=== PATIENT | female | born 1995 | race Caucasian/White ===

== ENCOUNTER 2016-07-16 11:36 | Emergency (ER) | payer OTHER ==
[~2016-07-16 11:36] MED LIST: /ESCI10TA PO; ANUS2.5C2 TOP; DOCU10ELUD PO; ERGO5000 PO; IBUP100SUS PO; MOM30SS PO; SPRI28TA PO; SYNT25TA PO; TYLE325T5 PO; VENTAER IN
[2016-07-16] MEDS ORDERED: ONDANSETRON 4 MG ORAL DISINTEGRATING TAB (S0181) As Ordered ONE (12:36)
--- NOTE | 2016-07-16 14:47 | EDDOCDS ---
Nurse's Notes [facility] Name: Shayy Nicholas Age: 21 yrs Sex: Female : 1995 Arrival Date: 07/16/2016 Time: 11:36 Bed TR8 Private MD: Padma Wheeler FNP Diagnosis: Influenza due to unidentified influenza virus Presentation: 07/16 11:45 Presenting complaint: Patient states: Pt presents with sore throat coughing general dls aches coughing all nite fever vomiting ill x 2 days. Adult Sepsis Screening: The patient does not have new or worsening altered mentation. Patient's respiratory rate is less than 22. Systolic blood pressure is greater than 100. Patient has a qSOFA score of 0- Negative Sepsis Screen. Suicide/Homicide risk assessment- the patient denies having any suicidal and/or homicidal ideations and does not present with any other emotional, behavioral or mental health complaints. 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 Transition of care: patient was not received from another setting of care. 11:45 Acuity: ALIRIO Level 3 dls 11:45 Method Of Arrival: Walkin/Carried/Asstd dls Triage Assessment: 11:49 General: Appears distressed, uncomfortable, well developed, Behavior is cooperative. dls Pain: Pain currently is 10 out of 10 on a pain scale. HIV screening NA for this visit Offered previously. 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 otc cold med (Last dose: 07/16/2016 09:30) 2. claritan (Last dose: 07/16/2016 09:30) - PMHx: brain surgery for tumpr; - PSHx: brain surgery; Appendectomy; skin grafts; - Social history: Smoking status: Patient/guardian denies using No barriers to communication noted, The patient speaks fluent Turkish. - Family history: Not pertinent. - : The pt / caregiver states he / she is not on anticoagulants. Home medication list is obtained from the patient. - Exposure Risk Screening:: None identified. Screenin:43 Screening information is obtained from the patient. Fall risk: No risks identified. ms18 Assistance ADL's: requires no assistance with activities of daily living. Abuse/DV Screen: The patient / caregiver reports he/she is: not in a situation that causes fear, pain or injury. Nutritional screening: No deficits noted. Advance Directives: There is no living will. home support is adequate. Assessment: 14:43 General: Appears in no apparent distress, comfortable, obese, Behavior is appropriate ms18 for age, cooperative. Pain: Location: all over Pain currently is 8 out of 10 on a pain scale. Neurological: Level of Consciousness is awake, alert, obeys commands, Oriented to person, place, time. Cardiovascular: Capillary refill < 3 seconds. Respiratory: Airway is patent Respiratory effort is even, unlabored, Respiratory pattern is regular, symmetrical. GI: Abdomen is obese, Bowel sounds present X 4 quads. Abd is soft X 4 quads. Derm: Skin is pink, warm & dry. Vital Signs: 11:38 BP 151 / 87; Pulse 139; Resp 18 S; Temp 100.7(O); Pulse Ox 96% on R/A; Weight 106.59 kg dd6 (R); Height 5 ft. 6 in. (167.64 cm) (R); 13:35 BP 124 / 70; Pulse 115; Resp 18; Temp 101.2; Pulse Ox 98% on R/A; Pain 5/10; ct3 14:43 Temp 99.7(TE); ms18 11:38 Body Mass Index 37.93 (106.59 kg, 167.64 cm) dd6 Vitals: 11:38 Log In Time: July 16, 2016 at 11:36. dd6 12:51 Strep Screen is obtained and tested: Negative, a GATSNEG culture is ordered in [facility] and sent. ED Course: 11:37 Patient visited by Kevin Worthy PCA. dd6 11:37 Patient moved to Waiting dd6 11:38 Padma Wheeler is Private Physician. dd6 11:39 Patient moved to Pre RCE dd6 11:46 Triage Initiated dls 12:07 Patient moved to Triage 3 ct3 12:08 [facility] ar2 12:08 Christine He MD is Attending Physician. ar2 12:08 Patient visited by Alexandru Frey PA-C. ar2 12:29 Patient moved to I4 / M4 kcs 12:29 Patient moved to Triage 3 kcs 12:38 -Influenza A&B Rapid Antigen - Nose Sent. kcs 12:43 Patient moved to TR1 ct3 13:02 Patient visited by Dariana Alexis PCA. ct3 13:10 [facility] Payment Agreement was scanned into [employer] and attached to record. lg 13:23 Patient moved to PR2 / ct3 13:35 Patient visited by Dariana Alexis PCA. ct3 14:18 Urine Culture Sent. kcs 14:29 Patient visited by Dariana Alexis PCA. ct3 14:32 Padma Wheeler is Referral Physician. ar2 14:43 Patient visited by Kathrine Brandt RN. ms18 14:43 Patient moved to TR8 ms18 14:43 The patient / caregiver is instructed regarding the plan of care and ED course. Patient ms18 has correct armband on for positive identification. Property sent home with patient. :Personal belongings accompany Pt. 14:43 No IV's were initiated during this patient's visit. No procedures done that require ms18 assistance. Administered Medications: 12:38 Drug: Ondansetron ODT 4 mg [ondansetron 4 mg disintegrating tablet (1 tabs)] Route: PO; [facility] Point of Care Testing: Urine : 14:18 hCG Reading: Negative; Control Reading: Positive; [facility] Urine Dip: 14:19 pH: 7; ; Specific [place]: 1.015; Ketones: Large; Glucose: Negative; Protein: Trace; kcs Leukocytes: Trace; Nitrite: Negative ; Blood: Negative; Bilirubin: Negative ; Urobilinogen: Normal Ranges: Order Results: Lab Order: -Influenza A&B Rapid Antigen - Nose; SPEC'M 07/16/16 12:32 Test: INFLUENZA A RAPID SCR by ICA; Value: INFLUENZA A RESULTS NEGATIVE; Status: F Test: INFLUENZA A RAPID SCR by ICA; Value: Comments:; Status: F Test: INFLUENZA B RAPID SCR by ICA; Value: INFLUENZA B RESULTS NEGATIVE; Status: F Test Note: ; The Influenza test is a direct rapid immunoassay for the qualitative detection of Influenza viral antigen. Cell culture (Viral Culture) testing should be considered to confirm NEGATIVE results and to assist in detecting other viruses that can provide similar clinical symptoms. Please contact the lab within 24 hours ([phone]) if confirmatory testing is desired. Outcome: 14:33 Discharge ordered by Provider. ar2 14:43 Discharge Assessment: Patient awake, alert and oriented x 3. No cognitive and/or ms18 functional deficits noted. Patient verbalized understanding of disposition instructions. patient administered narcotics - no. The following High Risk Discharge criteria are identified: None. Discharged to home ambulatory. Condition: good Condition: stable Condition: improved. Discharge instructions given to patient, Instructed on discharge instructions, follow up and referral plans. medication usage, Demonstrated understanding of instructions, medications, Pt was receptive of discharge instructions/ teaching. Prescriptions given X 2. No special radiology studies were completed. 14:47 Patient left the ED. ms18 Signatures: Melissa Lee, RN RN kcs Charlene Fox RN RN dls Estrellita Whitmore, Bora Reg lg Alexandru Frey PA-C PA-C ar2 Kevin Worthy, MACHINE OPERATOR HAY STACKER MACHINE OPERATOR HAY STACKER dd6 Dariana Alexis, MACHINE OPERATOR HAY STACKER MACHINE OPERATOR HAY STACKER ct3 Kathrine Brandt RN RN ms18 MTDD
--- NOTE | 2016-07-16 14:47 | EDDOCDS ---
Physician Documentation [facility] Name: Shayy Nicholas Age: 21 yrs Sex: Female : 1995 Arrival Date: 07/16/2016 Time: 11:36 Bed TR8 Private MD: Padma Wheeler FNP Disposition: 07/16/16 14:33 Discharged to Home/Self Care. Impression: Influenza due to unidentified influenza virus. - Condition is Stable. - Discharge Instructions: Viral Infections. - Prescriptions for Ibuprofen 600 mg Oral Tablet - take 1 tablet by ORAL route every 6 hours As needed take with food; 30 tablet. ZOFRAN ODT 4 mg - dissolve 1 tablet by ORAL route 4 times per day As needed do not chew, do not swallow whole; 10 tablet. - Medication Reconciliation, Local Pharmacy Hours form. - Follow up: Padma Wheeler; When: 4 - 5 days; Reason: Recheck today's complaints. Follow up: Emergency Department; When: As needed; Reason: Worsening of conditions. - Problem is new. - Symptoms have improved. Historical: - Allergies: no known allergies; - Home Meds: 1. otc cold med (Last dose: 07/16/2016 09:30) 2. claritan (Last dose: 07/16/2016 09:30) - PMHx: brain surgery for tumpr; - PSHx: brain surgery; Appendectomy; skin grafts; - Social history: Smoking status: Patient/guardian denies using No barriers to communication noted, The patient speaks fluent Andorran. - Family history: Not pertinent. - : The pt / caregiver states he / she is not on anticoagulants. Home medication list is obtained from the patient. - Exposure Risk Screening:: None identified. 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 6 in. (167.64 cm) (R); 13:35 BP 124 / 70; Pulse 115; Resp 18; Temp 101.2; Pulse Ox 98% on R/A; Pain 5/10; ct3 14:43 Temp 99.7(TE); ms18 11:38 Body Mass Index 37.93 (106.59 kg, 167.64 cm) dd6 MDM: 12:18 Strep Screen, Nursing ordered. ar2 12:18 Ondansetron ODT Oral Disintegrating Tablet 4 mg PO once ordered. ar2 12:18 Fluid Challenge ordered. ar2 12:19 -Influenza A&B Rapid Antigen - Nose Ordered. EDMS 12:51 GATS (NEGATIVE STREP SCREEN) Ordered. EDMS 13:10 Financial registration complete. lg 13:10 [facility] Payment Agreement was scanned into [employer] and attached to record. lg 13:53 -Influenza A&B Rapid Antigen - Nose Reviewed. ar2 13:56 Urine Dip ordered. ar2 13:56 UCG by Nursing ordered. ar2 13:58 Urine Culture Ordered. EDMS Point of Care Testing: Urine : 14:18 hCG Reading: Negative; Control Reading: Positive; kcs Urine Dip: 14:19 pH: 7; ; Specific [place]: 1.015; Ketones: Large; Glucose: Negative; Protein: Trace; kcs Leukocytes: Trace; Nitrite: Negative ; Blood: Negative; Bilirubin: Negative ; Urobilinogen: Normal Ranges: Administered Medications: 12:38 Drug: Ondansetron ODT 4 mg [ondansetron 4 mg disintegrating tablet (1 tabs)] Route: PO; kcs Signatures: Dispatcher [employer] Charlene Aguila RN RN dls Estrellita Whitmore, Reg Reg lg Alexandru Frey, PA-C PA-C ar2 Kathrine Brandt RN RN ms18 Melissa Lee RN kcs The chart was reviewed and I authenticate all verbal orders and agree with the evaluation and treatment provided.Attachments: 13:10 [facility] Payment Agreement lg MTDD
--- NOTE | 2016-07-18 15:48 | EDDOCDS ---
Physician Documentation [facility] Name: Shayy Nicholas Age: 21 yrs Sex: Female : 1995 Arrival Date: 07/16/2016 Time: 11:36 Bed TR8 Private MD: Padma Wheeler FNP Disposition: 07/16/16 14:33 Discharged to Home/Self Care. Impression: Influenza due to unidentified influenza virus. - Condition is Stable. - Discharge Instructions: Viral Infections. - Prescriptions for Ibuprofen 600 mg Oral Tablet - take 1 tablet by ORAL route every 6 hours As needed take with food; 30 tablet. ZOFRAN ODT 4 mg - dissolve 1 tablet by ORAL route 4 times per day As needed do not chew, do not swallow whole; 10 tablet. - Medication Reconciliation, Local Pharmacy Hours form. - Follow up: Padma Wheeler; When: 4 - 5 days; Reason: Recheck today's complaints. Follow up: Emergency Department; When: As needed; Reason: Worsening of conditions. - Problem is new. - Symptoms have improved. Historical: - Allergies: no known allergies; - Home Meds: 1. otc cold med (Last dose: 07/16/2016 09:30) 2. claritan (Last dose: 07/16/2016 09:30) - PMHx: brain surgery for tumpr; - PSHx: brain surgery; Appendectomy; skin grafts; - Social history: Smoking status: Patient/guardian denies using No barriers to communication noted, The patient speaks fluent Pakistani. - Family history: Not pertinent. - : The pt / caregiver states he / she is not on anticoagulants. Home medication list is obtained from the patient. - Exposure Risk Screening:: None identified. 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 6 in. (167.64 cm) (R); 13:35 BP 124 / 70; Pulse 115; Resp 18; Temp 101.2; Pulse Ox 98% on R/A; Pain 5/10; ct3 14:43 Temp 99.7(TE); ms18 11:38 Body Mass Index 37.93 (106.59 kg, 167.64 cm) dd6 MDM: 12:18 Strep Screen, Nursing ordered. ar2 12:18 Ondansetron ODT Oral Disintegrating Tablet 4 mg PO once ordered. ar2 12:18 Fluid Challenge ordered. ar2 12:19 -Influenza A&B Rapid Antigen - Nose Ordered. EDMS 12:51 GATS (NEGATIVE STREP SCREEN) Ordered. EDMS 13:10 Financial registration complete. lg 13:10 [facility] Payment Agreement was scanned into [employer] and attached to record. lg 13:53 -Influenza A&B Rapid Antigen - Nose Reviewed. ar2 13:56 Urine Dip ordered. ar2 13:56 UCG by Nursing ordered. ar2 13:58 Urine Culture Ordered. EDMS 07/17 06:39 T-Sheet-- Draft Copy was scanned into [employer] and attached to record. ben Point of Care Testing: Urine : 07/16 14:18 hCG Reading: Negative; Control Reading: Positive; kcs Urine Dip: 14:19 pH: 7; ; Specific [place]: 1.015; Ketones: Large; Glucose: Negative; Protein: Trace; kcs Leukocytes: Trace; Nitrite: Negative ; Blood: Negative; Bilirubin: Negative ; Urobilinogen: Normal Ranges: Administered Medications: 12:38 Drug: Ondansetron ODT 4 mg [ondansetron 4 mg disintegrating tablet (1 tabs)] Route: PO; kcs Signatures: Dispatcher [employer] EDWV Charlene Fox RN RN dls Estrellita Whitmore, Reg Reg Alexandru Frey PA-C PA-C ar2 Kathrine Brandt RN RN ms18 Arel, Melissa Dale RN The chart was reviewed and I authenticate all verbal orders and agree with the evaluation and treatment provided.Attachments: 13:10 [facility] Payment Agreement lg 07/17 06:39 T-Sheet-- Draft Copy [email or web address] Chart Complete MTDD
--- NOTE | 2016-07-18 15:48 | EDDOCDS ---
Nurse's Notes [facility] Name: Shayy Nicholas Age: 21 yrs Sex: Female : 1995 Arrival Date: 07/16/2016 Time: 11:36 Bed TR8 Private MD: Padma Wheeler FNP Diagnosis: Influenza due to unidentified influenza virus Presentation: 07/16 11:45 Presenting complaint: Patient states: Pt presents with sore throat coughing general dls aches coughing all nite fever vomiting ill x 2 days. Adult Sepsis Screening: The patient does not have new or worsening altered mentation. Patient's respiratory rate is less than 22. Systolic blood pressure is greater than 100. Patient has a qSOFA score of 0- Negative Sepsis Screen. Suicide/Homicide risk assessment- the patient denies having any suicidal and/or homicidal ideations and does not present with any other emotional, behavioral or mental health complaints. 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 Transition of care: patient was not received from another setting of care. 11:45 Acuity: ALIRIO Level 3 dls 11:45 Method Of Arrival: Walkin/Carried/Asstd dls Triage Assessment: 11:49 General: Appears distressed, uncomfortable, well developed, Behavior is cooperative. dls Pain: Pain currently is 10 out of 10 on a pain scale. HIV screening NA for this visit Offered previously. 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 otc cold med (Last dose: 07/16/2016 09:30) 2. claritan (Last dose: 07/16/2016 09:30) - PMHx: brain surgery for tumpr; - PSHx: brain surgery; Appendectomy; skin grafts; - Social history: Smoking status: Patient/guardian denies using No barriers to communication noted, The patient speaks fluent Albanian. - Family history: Not pertinent. - : The pt / caregiver states he / she is not on anticoagulants. Home medication list is obtained from the patient. - Exposure Risk Screening:: None identified. Screenin:43 Screening information is obtained from the patient. Fall risk: No risks identified. ms18 Assistance ADL's: requires no assistance with activities of daily living. Abuse/DV Screen: The patient / caregiver reports he/she is: not in a situation that causes fear, pain or injury. Nutritional screening: No deficits noted. Advance Directives: There is no living will. home support is adequate. Assessment: 14:43 General: Appears in no apparent distress, comfortable, obese, Behavior is appropriate ms18 for age, cooperative. Pain: Location: all over Pain currently is 8 out of 10 on a pain scale. Neurological: Level of Consciousness is awake, alert, obeys commands, Oriented to person, place, time. Cardiovascular: Capillary refill < 3 seconds. Respiratory: Airway is patent Respiratory effort is even, unlabored, Respiratory pattern is regular, symmetrical. GI: Abdomen is obese, Bowel sounds present X 4 quads. Abd is soft X 4 quads. Derm: Skin is pink, warm & dry. Vital Signs: 11:38 BP 151 / 87; Pulse 139; Resp 18 S; Temp 100.7(O); Pulse Ox 96% on R/A; Weight 106.59 kg dd6 (R); Height 5 ft. 6 in. (167.64 cm) (R); 13:35 BP 124 / 70; Pulse 115; Resp 18; Temp 101.2; Pulse Ox 98% on R/A; Pain 5/10; ct3 14:43 Temp 99.7(TE); ms18 11:38 Body Mass Index 37.93 (106.59 kg, 167.64 cm) dd6 Vitals: 11:38 Log In Time: July 16, 2016 at 11:36. dd6 12:51 Strep Screen is obtained and tested: Negative, a GATSNEG culture is ordered in [facility] and sent. ED Course: 11:37 Patient visited by Kevin Worthy PCA. dd6 11:37 Patient moved to Waiting dd6 11:38 Padma Wheeler is Private Physician. dd6 11:39 Patient moved to Pre RCE dd6 11:46 Triage Initiated dls 12:07 Patient moved to Triage 3 ct3 12:08 Alexand[facility] ar2 12:08 Christine He MD is Attending Physician. ar2 12:08 Patient visited by Alexandru Frey PA-C. ar2 12:29 Patient moved to I4 / M4 kcs 12:29 Patient moved to Triage 3 kcs 12:38 -Influenza A&B Rapid Antigen - Nose Sent. kcs 12:43 Patient moved to TR1 ct3 13:02 Patient visited by Dariana Alexis PCA. ct3 13:10 [facility] Payment Agreement was scanned into [employer] and attached to record. lg 13:23 Patient moved to PR2 / ct3 13:35 Patient visited by Dariana Alexis PCA. ct3 14:18 Urine Culture Sent. kcs 14:29 Patient visited by Dariana Alexis PCA. ct3 14:32 Padma Wheeler is Referral Physician. ar2 14:43 Patient visited by Kathrine Brandt RN. ms18 14:43 Patient moved to TR8 ms18 14:43 The patient / caregiver is instructed regarding the plan of care and ED course. Patient ms18 has correct armband on for positive identification. Property sent home with patient. :Personal belongings accompany Pt. 14:43 No IV's were initiated during this patient's visit. No procedures done that require ms18 assistance. 07/17 06:39 T-Sheet-- Draft Copy was scanned into [employer] and attached to record. lja Administered Medications: 07/16 12:38 Drug: Ondansetron ODT 4 mg [ondansetron 4 mg disintegrating tablet (1 tabs)] Route: PO; [facility] Point of Care Testing: Urine : 14:18 hCG Reading: Negative; Control Reading: Positive; kcs Urine Dip: 14:19 pH: 7; ; Specific [place]: 1.015; Ketones: Large; Glucose: Negative; Protein: Trace; kcs Leukocytes: Trace; Nitrite: Negative ; Blood: Negative; Bilirubin: Negative ; Urobilinogen: Normal Ranges: Order Results: Lab Order: -Influenza A&B Rapid Antigen - Nose; SPEC'M 07/16/16 12:32 Test: INFLUENZA A RAPID SCR by ICA; Value: INFLUENZA A RESULTS NEGATIVE; Status: F Test: INFLUENZA A RAPID SCR by ICA; Value: Comments:; Status: F Test: INFLUENZA B RAPID SCR by ICA; Value: INFLUENZA B RESULTS NEGATIVE; Status: F Test Note: ; The Influenza test is a direct rapid immunoassay for the qualitative detection of Influenza viral antigen. Cell culture (Viral Culture) testing should be considered to confirm NEGATIVE results and to assist in detecting other viruses that can provide similar clinical symptoms. Please contact the lab within 24 hours ([phone]) if confirmatory testing is desired. Lab Order: GATS (NEGATIVE STREP SCREEN); SPEC'M 07/16/16 12:32 Test: GATS CULTURE (NEG STREP SCR); Value: GATS RESULT NEGATIVE FOR STREP PYOGENES (GROUP A); Status: F Lab Order: Urine Culture; SPEC'M 07/16/16 14:10 Test: URINE CULTURE; Value: URINE CULTURE RESULT SPECIMEN APPEARS CONTAMINATED; Status: F Outcome: 14:33 Discharge ordered by Provider. ar2 14:43 Discharge Assessment: Patient awake, alert and oriented x 3. No cognitive and/or ms18 functional deficits noted. Patient verbalized understanding of disposition instructions. patient administered narcotics - no. The following High Risk Discharge criteria are identified: None. Discharged to home ambulatory. Condition: good Condition: stable Condition: improved. Discharge instructions given to patient, Instructed on discharge instructions, follow up and referral plans. medication usage, Demonstrated understanding of instructions, medications, Pt was receptive of discharge instructions/ teaching. Prescriptions given X 2. No special radiology studies were completed. 14:47 Patient left the ED. ms18 Signatures: Melissa Lee, RN RN Charlene Wells RN RN dls Estrellita Whitmore, Bora Reg lg Alexandru Frey, PA-C PA-C ar2 Kevin Worthy, MEASUREMENT SUPERVISOR MEASUREMENT SUPERVISOR dd6 Dariana Alexis, MEASUREMENT SUPERVISOR MEASUREMENT SUPERVISOR ct3 Kathrine Brandt RN RN ms18 Arel, Christine contreras Chart Complete MTDD
--- NOTE | 2016-07-18 15:48 | EDDOCDS ---
Physician Documentation [facility] Name: Shayy Nicholas Age: 21 yrs Sex: Female : 1995 Arrival Date: 07/16/2016 Time: 11:36 Bed TR8 Private MD: Padma Wheeler FNP Disposition: 07/16/16 14:33 Discharged to Home/Self Care. Impression: Influenza due to unidentified influenza virus. - Condition is Stable. - Discharge Instructions: Viral Infections. - Prescriptions for Ibuprofen 600 mg Oral Tablet - take 1 tablet by ORAL route every 6 hours As needed take with food; 30 tablet. ZOFRAN ODT 4 mg - dissolve 1 tablet by ORAL route 4 times per day As needed do not chew, do not swallow whole; 10 tablet. - Medication Reconciliation, Local Pharmacy Hours form. - Follow up: Padma Wheeler; When: 4 - 5 days; Reason: Recheck today's complaints. Follow up: Emergency Department; When: As needed; Reason: Worsening of conditions. - Problem is new. - Symptoms have improved. Historical: - Allergies: no known allergies; - Home Meds: 1. otc cold med (Last dose: 07/16/2016 09:30) 2. claritan (Last dose: 07/16/2016 09:30) - PMHx: brain surgery for tumpr; - PSHx: brain surgery; Appendectomy; skin grafts; - Social history: Smoking status: Patient/guardian denies using No barriers to communication noted, The patient speaks fluent Moldovan. - Family history: Not pertinent. - : The pt / caregiver states he / she is not on anticoagulants. Home medication list is obtained from the patient. - Exposure Risk Screening:: None identified. 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 6 in. (167.64 cm) (R); 13:35 BP 124 / 70; Pulse 115; Resp 18; Temp 101.2; Pulse Ox 98% on R/A; Pain 5/10; ct3 14:43 Temp 99.7(TE); ms18 11:38 Body Mass Index 37.93 (106.59 kg, 167.64 cm) dd6 MDM: 12:18 Strep Screen, Nursing ordered. ar2 12:18 Ondansetron ODT Oral Disintegrating Tablet 4 mg PO once ordered. ar2 12:18 Fluid Challenge ordered. ar2 12:19 -Influenza A&B Rapid Antigen - Nose Ordered. EDMS 12:51 GATS (NEGATIVE STREP SCREEN) Ordered. EDMS 13:10 Financial registration complete. lg 13:10 [facility] Payment Agreement was scanned into [employer] and attached to record. lg 13:53 -Influenza A&B Rapid Antigen - Nose Reviewed. ar2 13:56 Urine Dip ordered. ar2 13:56 UCG by Nursing ordered. ar2 13:58 Urine Culture Ordered. EDMS 07/17 06:39 T-Sheet-- Draft Copy was scanned into [employer] and attached to record. ben Point of Care Testing: Urine : 07/16 14:18 hCG Reading: Negative; Control Reading: Positive; kcs Urine Dip: 14:19 pH: 7; ; Specific [place]: 1.015; Ketones: Large; Glucose: Negative; Protein: Trace; kcs Leukocytes: Trace; Nitrite: Negative ; Blood: Negative; Bilirubin: Negative ; Urobilinogen: Normal Ranges: Administered Medications: 12:38 Drug: Ondansetron ODT 4 mg [ondansetron 4 mg disintegrating tablet (1 tabs)] Route: PO; kcs Signatures: Dispatcher [employer] EDPA Charlene Fox RN RN dls Estrellita Whitmore, Reg Reg Alexandru Frey PA-C PA-C ar2 Kathrine Brandt RN RN ms18 Arel, Melissa Dale RN The chart was reviewed and I authenticate all verbal orders and agree with the evaluation and treatment provided.Attachments: 13:10 [facility] Payment Agreement lg 07/17 06:39 T-Sheet-- Draft Copy [email or web address] Chart Complete MTDD
== END 2016-07-16 14:47 | disposition home or self-care (01) ==
LOC: M ED 11:36
DX: B34.9 Viral infection, unspecified (principal); Z90.89 Acquired absence of other organs

== ENCOUNTER → 2016-07-23 | Outpatient (CLI) | payer OTHER ==
[2016-07-23 17:36] LABS: FREE T4 1.07 NG/DL (0.76-1.46); HCG, SERUM QUANTITATIVE < 1.0 MIU/ML; MEAN CORPUSCULAR HGB CONC 33.1 g/dl (32.0-36.5); MEAN CORPUSCULAR VOLUME 84.6 fl (80.0-96.0); RED CELL DISTRIBUTION WIDTH 14.3 % (11.5-14.5); WHITE BLOOD COUNT 13.3 K/mm3 (4.0-10.0)
== END ==
LOC: M SMT 15:06
PROVIDERS: ATTEND Obstetrics & Gynecology
DX: N92.0 Excessive and frequent menstruation with regular cycle (principal)

== ENCOUNTER 2016-07-26 23:07 | Emergency (ER) | payer OTHER ==
[2016-07-26] MEDS ORDERED: AZITHROMYCIN 250 MG TAB As Ordered ONE (23:55)
[2016-07-26] MEDS ORDERED: IBUPROFEN 600 MG TAB As Ordered ONE (23:55)
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
--- NOTE | 2016-07-27 00:06 | EDDOCDS ---
Nurse's Notes [facility] Name: Shayy Nicholas Age: 21 yrs Sex: Female : 1995 Arrival Date: 07/26/2016 Time: 23:07 Bed Triage 1 Private MD: Padma Wheeler FNP Diagnosis: Streptococcal pharyngitis;Cough Presentation: 07/26 23:17 Presenting complaint: Patient states: seen here for flu symptoms now having sore throat cz for 3 days. Adult Sepsis Screening: The patient does not have new or worsening altered mentation. Patient's respiratory rate is less than 22. Systolic blood pressure is greater than 100. Patient has a qSOFA score of 0- Negative Sepsis Screen. Suicide/Homicide risk assessment- the patient denies having any suicidal and/or homicidal ideations and does not present with any other emotional, behavioral or mental health complaints. Status: Patient is not a well service floorperson or dependent. Transition of care: patient was not received from another setting of care. 23:17 Acuity: ALIRIO Level 4 cz 23:17 Method Of Arrival: Walkin/Carried/Asstd cz Triage Assessment: 23:19 General: Appears in no apparent distress. Pain: Location: face. HIV screening NA for cz this visit Offered previously. 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 Claritan 2. otc cold med - PMHx: brain surgery for tumpr; - PSHx: brain surgery; - Social history: Smoking status: Patient states former smoker of tobacco. No barriers to communication noted, The patient speaks fluent Brazilian, Speaks appropriately for age. - Family history: Not pertinent. - : The pt / caregiver states he / she is not on anticoagulants. Home medication list is obtained from the patient. - Exposure Risk Screening:: None identified. Screenin/13 00:02 Screening information is obtained from the patient. Fall risk: No risks identified. ld5 Assistance ADL's: requires no assistance with activities of daily living. Abuse/DV Screen: The patient / caregiver reports he/she is: not in a situation that causes fear, pain or injury. Nutritional screening: No deficits noted. Advance Directives: Currently, there is no health care proxy. home support is adequate. Assessment: 00:02 General: Appears in no apparent distress. Pain: Location: throat Quality of pain is ld5 described as sore. Neurological: Level of Consciousness is awake, alert. EENT: Throat with gag reflex present. Respiratory: Airway is patent Respiratory effort is even, unlabored, Reports shortness of breath with cough cough that is non-productive. GI: Abdomen is obese, Reports vomiting. Vital Signs: 07/26 23:10 BP 147 / 76; Pulse 90; Resp 18 S; Temp 97.7(O); Pulse Ox 97% on R/A; Weight 117.03 kg gr2 (R); Height 5 ft. 6 in. (167.64 cm) (R); Pain 4/10; 23:10 Body Mass Index 41.64 (117.03 kg, 167.64 cm) gr2 Vitals: 23:10 Log In Time: July 26, 2016 at 23:10. gr2 23:52 Strep Screen is obtained and tested: Positive. ld5 ED Course: 23:09 Patient visited by Akhil Smith. gr2 23:09 Padma Wheeler is Private Physician. gr2 23:09 Patient moved to Waiting gr2 23:12 Patient visited by Akhil Smith. gr2 23:12 Patient moved to Pre RCE gr2 23:18 Triage Initiated cz 23:20 Patient moved to Triage 1 cz 23:32 Sukhjinder Pino RPA-C is PHCP. ck7 23:32 Peng Bauman DO is Attending Physician. ck7 23:32 Patient visited by Sukhjinder Pino RPA-C. ck7 23:51 Padma Wheeler is Referral Physician. ck7 01 00:02 The patient / caregiver is instructed regarding the plan of care and ED course. Patient ld5 has correct armband on for positive identification. 00:02 No IV's were initiated during this patient's visit. No procedures done that require ld5 assistance. 00:05 Patient visited by Ivory Luciano RN. ld5 Administered Medications: 00:02 Drug: Ibuprofen 600 mg [ibuprofen 600 mg tablet (1 tabs)] Route: PO; ld5 00:04 Follow up: Response: Pt left department before re-evaluation is appropriate ld5 00:02 Drug: azithromycin 500 mg [azithromycin 250 mg tablet (2 tabs)] Route: PO; ld5 Order Results: There are currently no results for this order. Outcome: 07/26 23:51 Discharge ordered by Provider. ck7 07/27 00:02 Discharge Assessment: Patient awake, alert and oriented x 3. No cognitive and/or ld5 functional deficits noted. Patient verbalized understanding of disposition instructions. patient administered narcotics - no. The following High Risk Discharge criteria are identified: None. Discharged to home ambulatory, with significant other. Condition: stable. Discharge instructions given to patient, significant other, Instructed on discharge instructions, follow up and referral plans. medication usage, salt water gargle. Demonstrated understanding of instructions, medications, Pt was receptive of discharge instructions/ teaching. Prescriptions given X 2. No special radiology studies were completed. Property :Personal belongings accompany Pt. 00:05 Patient left the ED. ld5 Signatures: Gregg Duff, RN RN cz Ivory Luciano RN RN ld5 Sukhjinder Pino, PEDRO-C RPA-Cck7 Akhil Smith 2 ARTEMIO
--- NOTE | 2016-07-29 01:06 | EDDOCDS ---
Physician Documentation [facility] Name: Shayy Nicholas Age: 21 yrs Sex: Female : 1995 Arrival Date: 07/26/2016 Time: 23:07 Bed Triage 1 Private MD: Padma Wheeler FNP Disposition: 07/26/16 23:51 Discharged to Home/Self Care. Impression: Streptococcal pharyngitis, Cough. - Condition is Stable. - Discharge Instructions: Salt Water Gargle, Strep Throat. - Prescriptions for Ibuprofen 600 mg Oral Tablet - take 1 tablet by ORAL route every 6 hours As needed take with food; 30 tablet. Zithromax 250 mg Oral Tablet - take 1 tablet by ORAL route once daily start tomorrow; 4 tablet. - Medication Reconciliation, Local Pharmacy Hours form. - Follow up: Padma Wheeler; When: 2 - 3 days; Reason: Recheck today's complaints, Continuance of care. - Problem is new. - Symptoms have improved. Historical: - Allergies: No known drug Allergies; - Home Meds: 1. Claritan 2. otc cold med - PMHx: brain surgery for tumpr; - PSHx: brain surgery; - Social history: Smoking status: Patient states former smoker of tobacco. No barriers to communication noted, The patient speaks fluent Greek, Speaks appropriately for age. - Family history: Not pertinent. - : The pt / caregiver states he / she is not on anticoagulants. Home medication list is obtained from the patient. - Exposure Risk Screening:: None identified. 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 6 in. (167.64 cm) (R); Pain 4/10; 23:10 Body Mass Index 41.64 (117.03 kg, 167.64 cm) gr2 MDM: 23:37 Strep Screen, Nursing ordered. ck7 23:52 Ibuprofen 600 mg PO once ordered. ck7 23:52 azithromycin 500 mg PO once ordered. ck7 07/27 00:02 Financial registration complete. hs2 00:12 [facility] Payment Agreement was scanned into [employer] and attached to record. hs2 11:49 T-Sheet-- Draft Copy was scanned into [employer] and attached to record. gb Administered Medications: 00:02 Drug: Ibuprofen 600 mg [ibuprofen 600 mg tablet (1 tabs)] Route: PO; ld5 00:04 Follow up: Response: Pt left department before re-evaluation is appropriate ld5 00:02 Drug: azithromycin 500 mg [azithromycin 250 mg tablet (2 tabs)] Route: PO; ld5 Signatures: Gregg Duff, RN RN cz April Bird, Reg Reg gb Ivory Luciano RN RN ld5 Sukhjinder Pino, RPA-C RPA-Cck7 Devika Ervin, Reg Reg hs2 The chart was reviewed and I authenticate all verbal orders and agree with the evaluation and treatment provided.Attachments: 00:12 [facility] Payment Agreement hs2 11:49 T-Sheet-- Draft Copy gb Chart Complete MTDD
--- NOTE | 2016-07-29 01:06 | EDDOCDS ---
Physician Documentation [facility] Name: Shayy Nicholas Age: 21 yrs Sex: Female : 1995 Arrival Date: 07/26/2016 Time: 23:07 Bed Triage 1 Private MD: Padma Wheeler FNP Disposition: 07/26/16 23:51 Discharged to Home/Self Care. Impression: Streptococcal pharyngitis, Cough. - Condition is Stable. - Discharge Instructions: Salt Water Gargle, Strep Throat. - Prescriptions for Ibuprofen 600 mg Oral Tablet - take 1 tablet by ORAL route every 6 hours As needed take with food; 30 tablet. Zithromax 250 mg Oral Tablet - take 1 tablet by ORAL route once daily start tomorrow; 4 tablet. - Medication Reconciliation, Local Pharmacy Hours form. - Follow up: Padma Wheeler; When: 2 - 3 days; Reason: Recheck today's complaints, Continuance of care. - Problem is new. - Symptoms have improved. Historical: - Allergies: No known drug Allergies; - Home Meds: 1. Claritan 2. otc cold med - PMHx: brain surgery for tumpr; - PSHx: brain surgery; - Social history: Smoking status: Patient states former smoker of tobacco. No barriers to communication noted, The patient speaks fluent Danish, Speaks appropriately for age. - Family history: Not pertinent. - : The pt / caregiver states he / she is not on anticoagulants. Home medication list is obtained from the patient. - Exposure Risk Screening:: None identified. 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 6 in. (167.64 cm) (R); Pain 4/10; 23:10 Body Mass Index 41.64 (117.03 kg, 167.64 cm) gr2 MDM: 23:37 Strep Screen, Nursing ordered. ck7 23:52 Ibuprofen 600 mg PO once ordered. ck7 23:52 azithromycin 500 mg PO once ordered. ck7 07/27 00:02 Financial registration complete. hs2 00:12 [facility] Payment Agreement was scanned into [employer] and attached to record. hs2 11:49 T-Sheet-- Draft Copy was scanned into [employer] and attached to record. gb Administered Medications: 00:02 Drug: Ibuprofen 600 mg [ibuprofen 600 mg tablet (1 tabs)] Route: PO; ld5 00:04 Follow up: Response: Pt left department before re-evaluation is appropriate ld5 00:02 Drug: azithromycin 500 mg [azithromycin 250 mg tablet (2 tabs)] Route: PO; ld5 Signatures: Gregg Duff, RN RN cz April Bird, Reg Reg gb Ivory Luciano RN RN ld5 Sukhjinder Pino, RPA-C RPA-Cck7 Devika Ervin, Reg Reg hs2 The chart was reviewed and I authenticate all verbal orders and agree with the evaluation and treatment provided.Attachments: 00:12 [facility] Payment Agreement hs2 11:49 T-Sheet-- Draft Copy gb Chart Complete MTDD
--- NOTE | 2016-07-29 01:06 | EDDOCDS ---
Nurse's Notes [facility] Name: Shayy Nicholas Age: 21 yrs Sex: Female : 1995 Arrival Date: 07/26/2016 Time: 23:07 Bed Triage 1 Private MD: Padma Wheeler FNP Diagnosis: Streptococcal pharyngitis;Cough Presentation: 07/26 23:17 Presenting complaint: Patient states: seen here for flu symptoms now having sore throat cz for 3 days. Adult Sepsis Screening: The patient does not have new or worsening altered mentation. Patient's respiratory rate is less than 22. Systolic blood pressure is greater than 100. Patient has a qSOFA score of 0- Negative Sepsis Screen. Suicide/Homicide risk assessment- the patient denies having any suicidal and/or homicidal ideations and does not present with any other emotional, behavioral or mental health complaints. Status: Patient is not a railroad emergency services manager or dependent. Transition of care: patient was not received from another setting of care. 23:17 Acuity: ALIRIO Level 4 cz 23:17 Method Of Arrival: Walkin/Carried/Asstd cz Triage Assessment: 23:19 General: Appears in no apparent distress. Pain: Location: face. HIV screening NA for cz this visit Offered previously. 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 Claritan 2. otc cold med - PMHx: brain surgery for tumpr; - PSHx: brain surgery; - Social history: Smoking status: Patient states former smoker of tobacco. No barriers to communication noted, The patient speaks fluent Pakistani, Speaks appropriately for age. - Family history: Not pertinent. - : The pt / caregiver states he / she is not on anticoagulants. Home medication list is obtained from the patient. - Exposure Risk Screening:: None identified. Screenin/13 00:02 Screening information is obtained from the patient. Fall risk: No risks identified. ld5 Assistance ADL's: requires no assistance with activities of daily living. Abuse/DV Screen: The patient / caregiver reports he/she is: not in a situation that causes fear, pain or injury. Nutritional screening: No deficits noted. Advance Directives: Currently, there is no health care proxy. home support is adequate. Assessment: 00:02 General: Appears in no apparent distress. Pain: Location: throat Quality of pain is ld5 described as sore. Neurological: Level of Consciousness is awake, alert. EENT: Throat with gag reflex present. Respiratory: Airway is patent Respiratory effort is even, unlabored, Reports shortness of breath with cough cough that is non-productive. GI: Abdomen is obese, Reports vomiting. Vital Signs: 07/26 23:10 BP 147 / 76; Pulse 90; Resp 18 S; Temp 97.7(O); Pulse Ox 97% on R/A; Weight 117.03 kg gr2 (R); Height 5 ft. 6 in. (167.64 cm) (R); Pain 4/10; 23:10 Body Mass Index 41.64 (117.03 kg, 167.64 cm) gr2 Vitals: 23:10 Log In Time: July 26, 2016 at 23:10. gr2 23:52 Strep Screen is obtained and tested: Positive. ld5 ED Course: 23:09 Patient visited by Akhil Smith. gr2 23:09 Padma Wheeler is Private Physician. gr2 23:09 Patient moved to Waiting gr2 23:12 Patient visited by Akhil Smith. gr2 23:12 Patient moved to Pre RCE gr2 23:18 Triage Initiated cz 23:20 Patient moved to Triage 1 cz 23:32 Sukhjinder Pino RPA-C is PHCP. ck7 23:32 Peng Bauman DO is Attending Physician. ck7 23:32 Patient visited by Sukhjinder Pino RPA-C. ck7 23:51 Padma Wheeler is Referral Physician. ck7 01 00:02 The patient / caregiver is instructed regarding the plan of care and ED course. Patient ld5 has correct armband on for positive identification. 00:02 No IV's were initiated during this patient's visit. No procedures done that require ld5 assistance. 00:05 Patient visited by Ivory Luciano RN. ld5 00:12 [facility] Payment Agreement was scanned into [employer] and attached to record. hs2 11:49 T-Sheet-- Draft Copy was scanned into [employer] and attached to record. gb Administered Medications: 00:02 Drug: Ibuprofen 600 mg [ibuprofen 600 mg tablet (1 tabs)] Route: PO; ld5 00:04 Follow up: Response: Pt left department before re-evaluation is appropriate ld5 00:02 Drug: azithromycin 500 mg [azithromycin 250 mg tablet (2 tabs)] Route: PO; ld5 Order Results: There are currently no results for this order. Outcome: 07/26 23:51 Discharge ordered by Provider. ck7 07/27 00:02 Discharge Assessment: Patient awake, alert and oriented x 3. No cognitive and/or ld5 functional deficits noted. Patient verbalized understanding of disposition instructions. patient administered narcotics - no. The following High Risk Discharge criteria are identified: None. Discharged to home ambulatory, with significant other. Condition: stable. Discharge instructions given to patient, significant other, Instructed on discharge instructions, follow up and referral plans. medication usage, salt water gargle. Demonstrated understanding of instructions, medications, Pt was receptive of discharge instructions/ teaching. Prescriptions given X 2. No special radiology studies were completed. Property :Personal belongings accompany Pt. 00:05 Patient left the ED. ld5 Signatures: Gregg Duff, RN RN cz April Bird, Reg Reg gb Ivory Luciano RN RN ld5 Sukhjinder Pino, RPA-C RPA-Cck7 Akhil Smith gr2 Devika Ervin, Reg Reg hs2 Chart Complete MTDD
== END 2016-07-27 00:05 | disposition home or self-care (01) ==
LOC: M ED 23:07
DX: J02.0 Streptococcal pharyngitis (principal); R05 Cough

== ENCOUNTER → 2016-07-26 | Outpatient (CLI) | payer OTHER ==
--- NOTE | 2016-07-26 13:45 | REP ---
Clinical: Pelvic pain with abnormal uterine bleeding. Technique: Transabdominal pelvic ultrasound followed by transvaginal examination for better evaluation of the endometrium and adnexa with color Doppler evaluation of the ovaries. Findings: Bladder is unremarkable and measures 13.2 x 6.0 x 9.4 cm . Normal anteverted uterus measures 9.6 x 3.8 x 5.1 cm. The endometrial complex measures 9 mm thickness. Few subcentimeter Nabothian cysts are identified. No discrete uterine or endometrial abnormalities are appreciated. Bilateral ovaries demonstrate normal vascularity without torsion. Right ovary measures 7.4 x 4.7 x 6.0 cm with 5.6 cm simple likely physiologic cyst. Right RI equals 0.57. Left ovary is normal in appearance measuring 2.8 x 1.7 x 1.9 cm; left RI equals 0.51. No pelvic free fluid or adnexal mass lesions. Impression: 1. Normal uterus and left ovary. 2. 5.6 cm likely physiologic right ovarian cyst. Consider follow-up examination in 4-6 weeks to evaluate for resolution. Signed by Som Buckner MD 07/26/2016 01:36 P
== END ==
LOC: M SMT 12:40
PROVIDERS: ATTEND Obstetrics & Gynecology
DX: N92.0 Excessive and frequent menstruation with regular cycle (principal)

== ENCOUNTER 2016-08-28 22:30 | Emergency (ER) | payer OTHER ==
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
--- NOTE | 2016-08-29 07:46 | REP ---
Clinical: Trauma . Technique: AP, lateral, bilateral oblique views left ankle . Findings: No acute fracture or dislocation. Skeletal structures and joint spaces are intact and normal. Ankle mortise appears stable. No subcutaneous emphysema or radiodense foreign body. Impression: Normal left ankle radiograph series. Signed by Som Buckner MD 08/29/2016 07:37 A
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
== END 2016-08-29 00:15 | disposition home or self-care (01) ==
LOC: M ED 22:30
DX: S93.402A Sprain of unspecified ligament of left ankle, initial encounter (principal); W01.0XXA Fall on same level from slipping, tripping and stumbling without subsequent striking against object, initial encounter; Y92.098 Other place in other non-institutional residence as the place of occurrence of the external cause; Y93.89 Activity, other specified; Y99.8 Other external cause status; F17.210 Nicotine dependence, cigarettes, uncomplicated

== ENCOUNTER 2016-09-23 20:48 | Emergency (ER) | payer OTHER ==
[~2016-09-23] VITALS: Ht 167.6 cm; Wt 110.7 kg
[2016-09-23 23:50] LABS: BASO % 0.5 % (0.0-1.0); EOS # 0.2 K/mm3 (0.0-0.50); EOS % 1.8 % (0.0-3.0); LARGE UNSTAINED CELL # 0.2 K/mm3 (0.0-0.4); LARGE UNSTAINED CELL % 1.8 % (0.0-4.0); LYMPH # 2.6 K/mm3 (1.5-6.5); LYMPH % 27.3 % (24.0-44.0); MEAN CORPUSCULAR HEMOGLOBIN 27.5 pg (27.0-33.0); MEAN CORPUSCULAR VOLUME 80.8 fl (80.0-96.0); MONO # 0.5 K/mm3 (0.0-0.8); MONO % 5.1 % (0.0-5.0); NEUTROPHILS % 63.5 % (36.0-66.0); PLATELET COUNT, AUTOMATED 255 k/mm3 (150-450); RED CELL DISTRIBUTION WIDTH 14.5 % (11.5-14.5); WHITE BLOOD COUNT 9.5 K/mm3 (4.0-10.0)
[2016-09-24 00:08] LABS: CONTROL LINE HCG INT CTR LINE PRESENT
[2016-09-24 00:17] LABS: ALBUMIN 3.9 GM/DL (3.2-5.2); ALBUMIN/GLOBULIN RATIO 1.05 (1.00-1.93); ALKALINE PHOSPHATASE 101 U/L (45-117); ALT/SGPT 20 U/L (12-78); ANION GAP 11 MEQ/L (8-16); AST/SGOT 15 U/L (15-37); BILIRUBIN,TOTAL 0.4 MG/DL (0.2-1.0); BLOOD UREA NITROGEN 7 MG/DL (7-18); CALCIUM LEVEL 9.2 MG/DL (8.5-10.1); CARBON DIOXIDE LEVEL 26 MEQ/L (21-32); CHLORIDE LEVEL 105 MEQ/L (98-107); CREATININE FOR GFR 0.68 MG/DL (0.55-1.02); GLOMERULAR FILTRATION RATE > 60.0 (>60); GLUCOSE, FASTING 85 MG/DL (70-105); POTASSIUM SERUM 3.9 MEQ/L (3.5-5.1); SODIUM LEVEL 142 MEQ/L (136-145); TOTAL PROTEIN 7.6 GM/DL (6.4-8.2)
[2016-09-24 00:40] VITALS: BP 111/69
[2016-09-24] MEDS ORDERED: IBUP80TA PO (01:23)
[2016-09-24] MEDS ORDERED: AZITHROMYCIN 250 MG TAB PO ONE (01:30)
[2016-09-24] MEDS ORDERED: cefTRIAXone SOD 250 MG VIAL (J0696) IM ONE (01:30)
--- NOTE | 2016-09-24 01:30 | REPUSA ---
CLINICAL HISTORY: Pelvic pain. Vaginal discharge. TECHNIQUE: Realtime sonographic images were obtained in multiple projections via TA approach. COMMENTS: The uterus is anteverted measuring 9.6x4.7x6 cm. The endometrial echo pattern is within normal limits measuring 10.6 mm. There is no evidence of free fluid within the pelvic cul-de-sac. The right ovary measures 3.6x2.4x2.7 cm and the left ovary measures 3.8x2.3x2.1 cm. Both ovaries are free of solid or cystic mass. There is no evidence for abnormal vascularity. IMPRESSION: Normal study. Thank you for your kind referral of this patient.
[2016-09-24] MEDS ORDERED: LIDOCAINE 1% MDV 20ML VIAL As Ordered ONE (01:33)
== END 2016-09-24 01:48 | disposition home or self-care (01) ==
LOC: M ED 20:48
DX: R10.2 Pelvic and perineal pain (principal); J45.909 Unspecified asthma, uncomplicated; F32.9 Major depressive disorder, single episode, unspecified; F41.9 Anxiety disorder, unspecified; Z87.891 Personal history of nicotine dependence; Z91.018 Allergy to other foods; Z79.899 Other long term (current) drug therapy
CPT/HCPCS: 36415; 76856; 80053; 81001; 81025; 84703; 85025; 87210; 87491; 87591; 93976; 96372; 99284; J0696

== ENCOUNTER → 2016-10-23 | Outpatient (REF) | payer OTHER ==
[~2016-10-23] MED LIST changes: +IBUP80TA PO
[2016-10-23 14:34] LABS: ALBUMIN 3.6 GM/DL (3.2-5.2); ALBUMIN/GLOBULIN RATIO 1.24 (1.00-1.93); ALKALINE PHOSPHATASE 96 U/L (45-117); ALT/SGPT 19 U/L (12-78); ANION GAP 6 MEQ/L (8-16); AST/SGOT 12 U/L (15-37); BILIRUBIN,TOTAL 0.3 MG/DL (0.2-1.0); BLOOD UREA NITROGEN 10 MG/DL (7-18); CALCIUM LEVEL 8.6 MG/DL (8.5-10.1); CARBON DIOXIDE LEVEL 27 MEQ/L (21-32); CHLORIDE LEVEL 109 MEQ/L (98-107); CHOLESTEROL LEVEL 129 MG/DL (<200); CREATININE FOR GFR 0.64 MG/DL (0.55-1.02); GLOMERULAR FILTRATION RATE > 60.0 (>60); GLUCOSE, FASTING 90 MG/DL (70-105); POTASSIUM SERUM 3.8 MEQ/L (3.5-5.1); SODIUM LEVEL 142 MEQ/L (136-145); TOTAL PROTEIN 6.5 GM/DL (6.4-8.2); TRIGLYCERIDES LEVEL 161 MG/DL (<150)
== END ==
LOC: M LAB REF 13:24
PROVIDERS: ATTEND Nurse Practitioner Family
DX: E88.81 Metabolic syndrome and other insulin resistance (principal)

== ENCOUNTER 2016-11-23 23:12 | Emergency (ER) | payer OTHER ==
[~2016-11-23] VITALS: Ht 167.6 cm; Wt 119.7 kg
[2016-11-23] MEDS ORDERED: HYDR-4274 PO (23:50)
[2016-11-24] MEDS ORDERED: NS 1,000 ML IV ONE (03:00)
[2016-11-24] MEDS ORDERED: diphenhydrAMINE INJ 50MG/ML VIAL (J1200) IV ONE (03:00)
[2016-11-24] MEDS ORDERED: KETOROLAC 30 MG/ML VIAL (J1885) IV ONE (03:00)
[2016-11-24] MEDS ORDERED: METOCLOPRAMIDE INJ 10MG/2ML VIAL (J2765) IV ONE (03:00)
[2016-11-24 04:46] VITALS: BP 128/73
== END 2016-11-24 04:48 | disposition home or self-care (01) ==
LOC: M ED 11-24 03:13
DX: G43.909 Migraine, unspecified, not intractable, without status migrainosus (principal); Z87.891 Personal history of nicotine dependence; Z91.018 Allergy to other foods; Z79.899 Other long term (current) drug therapy

== ENCOUNTER 2016-12-24 16:48 | Emergency (ER) | payer OTHER ==
[~2016-12-24] VITALS: Ht 167.6 cm; Wt 79.1 kg
[~2016-12-24 16:48] MED LIST changes: +HYDR-4274 PO
[2016-12-24] MEDS ORDERED: hydroxyzine PO (16:59)
[2016-12-24 19:16] LABS: BASO # 0.1 K/mm3 (0.0-0.2); BASO % 0.7 % (0.0-1.0); EOS # 0.2 K/mm3 (0.0-0.50); EOS % 2.1 % (0.0-3.0); LARGE UNSTAINED CELL # 0.1 K/mm3 (0.0-0.4); LARGE UNSTAINED CELL % 1.2 % (0.0-4.0); LYMPH # 2.3 K/mm3 (1.5-6.5); LYMPH % 23.9 % (24.0-44.0); MEAN CORPUSCULAR HEMOGLOBIN 28.1 pg (27.0-33.0); MEAN CORPUSCULAR HGB CONC 34.3 g/dl (32.0-36.5); MONO # 0.5 K/mm3 (0.0-0.8); MONO % 5.3 % (0.0-5.0); NEUTROPHILS # 6.2 K/mm3 (1.8-7.7); NEUTROPHILS % 66.9 % (36.0-66.0); PLATELET COUNT, AUTOMATED 288 k/mm3 (150-450); RED CELL DISTRIBUTION WIDTH 15.1 % (11.5-14.5); WHITE BLOOD COUNT 9.2 K/mm3 (4.0-10.0)
--- NOTE | 2016-12-24 19:30 | REPUSA ---
Clinical history: bleeding. Comparison: 09/24/2016. Findings: Real-time transabdominal and transvaginal ultrasound images of the pelvis were obtained. An anteverted uterus is noted, measuring 8.4 x 4.4 x 5.4 cm. The uterus demonstrates normal echotextu re and echogenicity. The endometrial stripe measures 9 mm. There is a small amount of fluid in the en dometrial canal, likely physiologic. The right ovary measure 2.9 x 2.7 x 2.7 cm. The left ovary measu res 2.9 x 2.5 x 2.3 cm.. A simple left ovarian cyst measures 1.4 x 1.5 I 1.3 cm. No adnexal masses ar e seen. Color Doppler flow is seen within both ovaries. There is no evidence of free fluid. Impression: Unremarkable ultrasound examination of the pelvis. Simple left ovarian cyst.
[2016-12-24 19:40] LABS: ANION GAP 6 MEQ/L (8-16); BLOOD UREA NITROGEN 6 MG/DL (7-18); CALCIUM LEVEL 8.8 MG/DL (8.5-10.1); CARBON DIOXIDE LEVEL 27 MEQ/L (21-32); CHLORIDE LEVEL 105 MEQ/L (98-107); GLOMERULAR FILTRATION RATE > 60.0 (>60); GLUCOSE, FASTING 82 MG/DL (70-105); HCG, SERUM QUANTITATIVE < 1.0 MIU/ML; POTASSIUM SERUM 3.9 MEQ/L (3.5-5.1); SODIUM LEVEL 138 MEQ/L (136-145)
[2016-12-24 20:13] VITALS: BP 138/87
== END 2016-12-24 20:16 | disposition home or self-care (01) ==
LOC: M ED 18:08
DX: N83.292 Other ovarian cyst, left side (principal); N92.1 Excessive and frequent menstruation with irregular cycle; F31.9 Bipolar disorder, unspecified; F40.11 Social phobia, generalized; Z79.899 Other long term (current) drug therapy; Z91.018 Allergy to other foods

== ENCOUNTER → 2017-02-26 | Outpatient (REF) | payer OTHER ==
[~2017-02-26] MED LIST changes: -HYDR-4274 PO; +HYDR50TA70 PO; +IBUP-1022 PO; +IBUP80TA; +PENI250T57 PO; +TRAM50TA2 PO; +hydroxyzine PO
== END ==
LOC: M LAB REF 16:27
PROVIDERS: ATTEND Nurse Practitioner Family
DX: M54.5 Low back pain (principal)

== ENCOUNTER 2017-04-30 18:20 | Emergency (ER) | payer OTHER ==
[~2017-04-30] VITALS: Ht 167.6 cm; Wt 110.5 kg
[~2017-04-30 18:20] MED LIST changes: -IBUP-1022 PO; -IBUP80TA; -PENI250T57 PO; -TRAM50TA2 PO
[2017-04-30 18:34] VITALS: BP 154/93
[2017-04-30] MEDS ORDERED: IBUP80TA (18:39)
[2017-04-30] MEDS ORDERED: TRAM50TA2 PO (18:39)
[2017-04-30] MEDS ORDERED: IBUPROFEN 600 MG TAB PO ONE (20:15)
[2017-04-30] MEDS ORDERED: PENICILLIN V POTASSIUM 500 MG TAB PO ONE (20:15)
[2017-04-30] MEDS ORDERED: IBUP-1022 PO (20:17)
[2017-04-30] MEDS ORDERED: PENI250T57 PO (20:17)
== END 2017-04-30 20:26 | disposition home or self-care (01) ==
LOC: M ED 18:20
DX: J02.0 Streptococcal pharyngitis (principal); F17.200 Nicotine dependence, unspecified, uncomplicated

== ENCOUNTER → 2017-05-29 | Outpatient (REF) | payer OTHER, MEDICAID ==
[~2017-05-29] MED LIST changes: +AUGM875T28 PO; +BENZ200C53 PO; +IBUP-1022 PO; +IBUP80TA; +PENI250T57 PO; +TRAM50TA2 PO; +TRAZ50TA11 PO; +ZOFR4TAB3 PO
[2017-05-29 19:14] LABS: BASO # 0.1 10^3/uL (0.0-0.2); BASO % 0.7 % (0.0-1.0); EOS # 0.2 10^3/uL (0.0-0.50); EOS % 2.7 % (0.0-3.0); LYMPH # 2.3 10^3/uL (1.5-6.5); MEAN CORPUSCULAR HEMOGLOBIN 27.4 pg (27.0-33.0); MEAN CORPUSCULAR HGB CONC 32.4 g/dl (32.0-36.5); MEAN CORPUSCULAR VOLUME 84.5 fl (80.0-96.0); MONO # 0.6 10^3/uL (0.0-0.8); NEUTROPHILS % 59.6 % (36.0-66.0); PLATELET COUNT, AUTOMATED 282 10^3/uL (150-450); WHITE BLOOD COUNT 8.4 10^3/uL (4.0-10.0)
[2017-05-29 19:56] LABS: FOLATE 4.3 NG/ML; VITAMIN B12 LEVEL 274 PG/ML
[2017-05-29 20:05] LABS: ALBUMIN 4.2 GM/DL (3.2-5.2); ALBUMIN/GLOBULIN RATIO 1.45 (1.00-1.93); ALKALINE PHOSPHATASE 95 U/L (45-117); ALT/SGPT 24 U/L (12-78); ANION GAP 8 MEQ/L (8-16); AST/SGOT 8 U/L (7-37); BILIRUBIN,TOTAL 0.4 MG/DL (0.2-1.0); BLOOD UREA NITROGEN 7 MG/DL (7-18); CALCIUM LEVEL 8.9 MG/DL (8.5-10.1); CARBON DIOXIDE LEVEL 25 MEQ/L (21-32); CHLORIDE LEVEL 108 MEQ/L (98-107); CHOLESTEROL LEVEL 162 MG/DL (<200); CREATININE FOR GFR 0.58 MG/DL (0.55-1.02); GLOMERULAR FILTRATION RATE > 60.0 (>60); GLUCOSE, FASTING 80 MG/DL (70-105); HCG, SERUM QUANTITATIVE < 1.0 MIU/ML; POTASSIUM SERUM 4.1 MEQ/L (3.5-5.1); SODIUM LEVEL 141 MEQ/L (136-145); TOTAL PROTEIN 7.1 GM/DL (6.4-8.2); TRIGLYCERIDES LEVEL 257 MG/DL (<150)
== END ==
LOC: M LAB REF 17:39
PROVIDERS: ATTEND Nurse Practitioner Adult Health
DX: E88.81 Metabolic syndrome and other insulin resistance (principal); R20.0 Anesthesia of skin; N92.0 Excessive and frequent menstruation with regular cycle

== ENCOUNTER 2017-06-02 23:23 | Emergency (ER) | payer MEDICAID, OTHER ==
[~2017-06-02] VITALS: Ht 167.6 cm; Wt 133.2 kg
[~2017-06-02 23:23] MED LIST changes: -AUGM875T28 PO; -BENZ200C53 PO; -TRAZ50TA11 PO; -ZOFR4TAB3 PO
[2017-06-02] MEDS ORDERED: TRAZ50TA11 PO (23:51)
[2017-06-03] MEDS ORDERED: ZOFR4TAB3 PO (01:50)
[2017-06-03] MEDS ORDERED: AUGM875T28 PO (01:50)
[2017-06-03] MEDS ORDERED: BENZ200C53 PO (01:50)
[2017-06-03] MEDS ORDERED: BENZONATATE 100 MG CAP PO ONE (02:00)
[2017-06-03] MEDS ORDERED: AUGMENTIN 875 MG TAB PO ONE (02:00)
[2017-06-03] MEDS ORDERED: ONDANSETRON 4 MG ORAL DISINTEGRATING TAB (S0181) PO ONE (02:00)
[2017-06-03 02:16] VITALS: BP 139/97
== END 2017-06-03 02:22 | disposition home or self-care (01) ==
LOC: M ED 23:23
DX: K04.7 Periapical abscess without sinus (principal); J06.9 Acute upper respiratory infection, unspecified

== ENCOUNTER → 2017-07-22 | Outpatient (REF) | payer OTHER, MEDICAID | LOC: M LAB REF 12:05 | DX: E03.9 Hypothyroidism, unspecified (principal) ==

== ENCOUNTER → 2017-09-19 | Outpatient (REF) | payer OTHER, MEDICAID ==
[2017-09-19 14:14] LABS: CONTROL LINE HCG INT CTR LINE PRESENT; HCG, SERUM QUALITATIVE NEGATIVE (NEGATIVE)
[2017-09-19 14:52] LABS: ERYTHROCYTE SEDIMENTATION RATE 7 mm/hr (0-20)
[2017-09-20 14:11] LABS: ANTINUCLEAR ANTIBODIES DIRECT Negative (Negative)
== END ==
LOC: M LABNEURO 10:51
DX: G43.909 Migraine, unspecified, not intractable, without status migrainosus (principal)
CPT/HCPCS: 84703

== ENCOUNTER → 2017-09-23 | Outpatient (REF) | payer OTHER, MEDICAID | LOC: M LAB REF 17:58 | DX: E03.9 Hypothyroidism, unspecified (principal) ==

== ENCOUNTER 2017-11-22 22:37 | Emergency (ER) | payer OTHER ==
[2017-11-23] MEDS: diazePAM 5 MG TAB PO (00:03)
[2017-11-23] MEDS: NORCO, ANEXSIA 5/325MG TABLET (HYDROcodone/ACETAMINOPHEN) PO (00:04)
[2017-11-23] MEDS: PERCOCET 5MG/325MG TAB PO (01:38)
== END 2017-11-23 01:59 | disposition home or self-care (01) ==
LOC: M ED 11-23 01:59
DX: M54.5 Low back pain (principal); G89.29 Other chronic pain; M51.36 Other intervertebral disc degeneration, lumbar region; E03.9 Hypothyroidism, unspecified; Z79.01 Long term (current) use of anticoagulants; Z87.891 Personal history of nicotine dependence; Z98.890 Other specified postprocedural states; Z90.49 Acquired absence of other specified parts of digestive tract
CPT/HCPCS: 99283

== ENCOUNTER 2017-12-08 23:38 | Emergency (ER) | payer OTHER ==
[2017-12-09 03:02] LABS: BASO # 0.1 10^3/uL (0.0-0.2); BASO % 0.5 % (0.0-1.0); EOS # 0.1 10^3/uL (0.0-0.50); EOS % 0.9 % (0.0-3.0); HEMATOCRIT 40.5 % (36.0-47.0); HEMOGLOBIN 13.4 g/dl (12.0-15.5); IMMATURE GRANULOCYTE % 1.7 % (0-3.0); LYMPH # 1.7 10^3/uL (1.5-6.5); LYMPH % 14.8 % (24.0-44.0); MEAN CORPUSCULAR HEMOGLOBIN 27.4 pg (27.0-33.0); MEAN CORPUSCULAR HGB CONC 33.1 g/dl (32.0-36.5); MEAN CORPUSCULAR VOLUME 82.8 fl (80.0-96.0); MONO # 0.5 10^3/uL (0.0-0.8); MONO % 4.5 % (0.0-5.0); NEUTROPHILS % 77.6 % (36.0-66.0); PLATELET COUNT, AUTOMATED 328 10^3/uL (150-450); RED BLOOD COUNT 4.89 10^6/uL (4.00-5.40); RED CELL DISTRIBUTION WIDTH 14.8 % (11.5-14.5); WHITE BLOOD COUNT 11.7 10^3/uL (4.0-10.0)
[2017-12-09 03:06] LABS: CONTROL LINE HCG INT CTR LINE PRESENT; HCG, SERUM QUALITATIVE NEGATIVE (NEGATIVE)
[2017-12-09] MEDS: ONDANSETRON 4MG/2ML VIAL (J2405) IV (03:10)
[2017-12-09] MEDS: NS 1,000 ML IV (03:11)
[2017-12-09] MEDS: KETOROLAC 30 MG/ML VIAL (J1885) IV (03:11)
[2017-12-09 03:13] LABS: ALBUMIN 4.4 GM/DL (3.2-5.2); ALBUMIN/GLOBULIN RATIO 1.26 (1.00-1.93); ALKALINE PHOSPHATASE 106 U/L (45-117); ALT/SGPT 46 U/L (12-78); ANION GAP 8 MEQ/L (8-16); AST/SGOT 23 U/L (7-37); BILIRUBIN,DIRECT 0.1 MG/DL (0.0-0.2); BILIRUBIN,TOTAL 0.6 MG/DL (0.2-1.0); BLOOD UREA NITROGEN 8 MG/DL (7-18); CARBON DIOXIDE LEVEL 26 MEQ/L (21-32); CHLORIDE LEVEL 108 MEQ/L (98-107); GLOMERULAR FILTRATION RATE > 60.0 (>60); GLUCOSE, FASTING 101 MG/DL (70-100); LIPASE 100 U/L (73-393); SODIUM LEVEL 142 MEQ/L (136-145); TOTAL PROTEIN 7.9 GM/DL (6.4-8.2)
== END 2017-12-09 06:10 | disposition home or self-care (01) ==
LOC: M ED 23:38
DX: A08.4 Viral intestinal infection, unspecified (principal); G43.909 Migraine, unspecified, not intractable, without status migrainosus; M51.9 Unspecified thoracic, thoracolumbar and lumbosacral intervertebral disc disorder; Z91.018 Allergy to other foods; Z79.899 Other long term (current) drug therapy
CPT/HCPCS: J2405

== ENCOUNTER → 2018-05-22 | Outpatient (REF) | payer OTHER | LOC: M LAB REF 16:20 | DX: E03.9 Hypothyroidism, unspecified (principal) | CPT/HCPCS: 84443 ==

== ENCOUNTER 2018-08-07 06:55 | Emergency (ER) | payer OTHER ==
[~2018-08-07] VITALS: Ht 167.6 cm; Wt 135.9 kg
[~2018-08-07 06:55] MED LIST changes: +AMLO10TA5 PO; +AUGM875T28 PO; +BACL10TA2 PO; +BENZ200C70 PO; +IBUP-354 PO; +KETO10TAB PO; +LEVO100T5 PO; +TRAZ-160 PO; +ZOFR4TAB14 PO; +ZONI100C2 PO
--- NOTE | 2018-08-07 08:07 | REP ---
Chest x-ray: Two views. History: Cough and shortness of breath . Comparison study: April 25, 2016 . Findings: The lungs are well inflated and free of infiltrate. The pleural angles are sharp. The heart size is normal. Pulmonary vasculature is not increased. No significant bony abnormality is seen. Impression: Negative chest x-ray. Electronically Signed by Alton Rosenthal MD 08/07/2018 07:59 A
[2018-08-07 09:04] LABS: INFLUENZA A AMPLIFICATION NEGATIVE (NEGATIVE); INFLUENZA B AMPLIFICATION NEGATIVE (NEGATIVE)
[2018-08-07] MEDS ORDERED: predniSONE 20 MG TAB PO ONE (09:15)
[2018-08-07] MEDS ORDERED: ALBUTEROL SULFATE 2.5 MG/0.5 ML INH NEB SOLN NEB ONE (09:15)
[2018-08-07 10:09] LABS: HEMATOCRIT 40.5 % (36.0-47.0); HEMOGLOBIN 13.2 g/dl (12.0-15.5); MEAN CORPUSCULAR HEMOGLOBIN 26.9 pg (27.0-33.0); MEAN CORPUSCULAR HGB CONC 32.6 g/dl (32.0-36.5); MEAN CORPUSCULAR VOLUME 82.5 fl (80.0-96.0); PLATELET COUNT, AUTOMATED 294 10^3/uL (150-450); RED BLOOD COUNT 4.91 10^6/uL (4.00-5.40); WHITE BLOOD COUNT 9.7 10^3/uL (4.0-10.0)
[2018-08-07 10:49] LABS: BLOOD UREA NITROGEN 10 MG/DL (7-18); CALCIUM LEVEL 9.5 MG/DL (8.5-10.1); CARBON DIOXIDE LEVEL 28 MEQ/L (21-32); CHLORIDE LEVEL 104 MEQ/L (98-107); CPK CREATINE PHOSPHOKINASE 100 U/L (26-192); CREATININE FOR GFR 0.79 MG/DL (0.55-1.30); GLOMERULAR FILTRATION RATE > 60.0 (>60); GLUCOSE, FASTING 126 MG/DL (70-100); POTASSIUM SERUM 4.3 MEQ/L (3.5-5.1); SODIUM LEVEL 141 MEQ/L (136-145); TROPONIN I < 0.02 NG/ML (< 0.10)
[2018-08-07 11:20] VITALS: BP 134/92
[2018-08-07] MEDS ORDERED: PRED20TA PO (11:21)
[2018-08-07] MEDS ORDERED: NETI1KIT (11:23)
[2018-08-07] MEDS ORDERED: PROAAER10 INH (11:23)
[2018-08-07] MEDS ORDERED: MUCI30TA5 PO (11:23)
[2018-08-07] MEDS ORDERED: CETI10TA PO (11:23)
--- NOTE | 2018-08-08 10:33 | ECGEPIP ---
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
[2018-08-09] MEDS ORDERED: AMOX500C PO (08:57)
== END 2018-08-07 11:30 | disposition home or self-care (01) ==
LOC: M ED 06:55
DX: J20.9 Acute bronchitis, unspecified (principal); R00.0 Tachycardia, unspecified; E03.9 Hypothyroidism, unspecified; F41.9 Anxiety disorder, unspecified; I10 Essential (primary) hypertension; Z79.899 Other long term (current) drug therapy; Z87.891 Personal history of nicotine dependence

== ENCOUNTER 2018-09-14 21:42 | Emergency (ER) | payer OTHER ==
[~2018-09-14] VITALS: Ht 167.6 cm; Wt 136.8 kg
[2018-09-14 21:42] VITALS: BP 151/93
[~2018-09-14 21:42] MED LIST changes: +AMOX500C PO; +CETI10TA PO; +MUCI30TA5 PO; +NETI1KIT; +PRED20TA PO; +PROAAER10 INH
[2018-09-14] MEDS ORDERED: TRAZ-160 (21:49)
[2018-09-14] MEDS ORDERED: VITA50005 (21:49)
[2018-09-14] MEDS ORDERED: AMLO10TA5 (21:49)
[2018-09-14] MEDS ORDERED: FLUO10TA2 (21:49)
[2018-09-14] MEDS ORDERED: LEVO100T5 (21:49)
[2018-09-14] MEDS ORDERED: KETOROLAC 30 MG/ML VIAL (J1885) IM ONE (23:15)
[2018-09-14] MEDS ORDERED: ACET1TAB55 PO (23:25)
[2018-09-14] MEDS ORDERED: IBUP-1114 PO (23:25)
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
--- NOTE | 2018-09-15 01:29 | REP ---
Clinical: Right ankle injury . Technique: AP, lateral, bilateral oblique views. Findings: No acute fracture or dislocation. Skeletal structures and joint spaces are intact and normal. Ankle mortise appears stable. No subcutaneous emphysema or radiodense foreign body. Impression: Normal right ankle radiograph series. Electronically Signed by Som Buckner MD 09/15/2018 01:20 A
== END 2018-09-14 23:48 | disposition home or self-care (01) ==
LOC: M ED 21:42
DX: S69.92XA Unspecified injury of left wrist, hand and finger(s), initial encounter (principal); S93.401A Sprain of unspecified ligament of right ankle, initial encounter; W00.0XXA Fall on same level due to ice and snow, initial encounter; Y92.009 Unspecified place in unspecified non-institutional (private) residence as the place of occurrence of the external cause; Z91.018 Allergy to other foods; Z79.899 Other long term (current) drug therapy; Z79.890 Hormone replacement therapy
CPT/HCPCS: 73110; 73610; 73630; 96372; 99284; J1885

== ENCOUNTER → 2018-11-06 | Outpatient (REF) | payer OTHER, MEDICAID ==
[~2018-11-06] MED LIST changes: -/ESCI10TA PO; +ACET1TAB55 PO; +AMLO10TA5; -DOCU10ELUD PO; +DOCU5LIQ PO; +FLUO10TA2; +IBUP-1114 PO; +IBUP100S44 PO; -IBUP100SUS PO; +LEVO100T5; +LEXA1TAB PO; +TRAZ-160; +VITA50005
[2018-11-06 17:08] LABS: C REACTIVE PROTEIN QUANTITATIV 0.46 MG/DL (0.00-0.30); RHEUMATOID FACTOR QUANT < 10.0 IU/ML (<15.0)
== END ==
LOC: M LABDRAW1 16:20
PROVIDERS: ATTEND Physician Assistant
DX: M51.36 Other intervertebral disc degeneration, lumbar region (principal)

== ENCOUNTER → 2018-11-20 | Outpatient (CLI) | payer OTHER ==
--- NOTE | 2018-11-20 12:18 | REP ---
MRI LUMBAR SPINE WITHOUT CONTRAST: HISTORY: Intervertebral disc degeneration. Back pain. Comparison MR study is from December 17, 2017. Comparison radiographs are from October 18, 2017. TECHNIQUE: Sagittal and axial T1-and T2-weighted scans are acquired in the usual fashion with and without fat saturation. Sequences include spin echo, turbo spin echo, and STIR imaging sequences. MRI FINDINGS: Lumbar vertebral body heights are preserved. Alignment is normal. Disc spaces are maintained in height and signal intensity. There is no evidence of spondylolysis or spondylolisthesis. The tip of the conus medullaris is normal in position and appearance at L1. No extra vertebral abnormality is appreciated. Axial and sagittal images at the L5-S1 level demonstrate a small left foraminal disc protrusion with annulus tear. There is mild encroachment on the left neural foramen. Posterior disc margin is otherwise intact in appearance. No central canal stenosis is seen. Facets are unremarkable at L5-S1. At L4-5, there is no evidence of disc protrusion, neural foraminal encroachment, or spinal stenosis. The L3-4, L1-2, and L2-3 disc levels are unremarkable as well. IMPRESSION: There is a left foraminal small disc protrusion at L5-S1. Otherwise normal MRI study of the lumbar spine. Electronically Signed by Alton Rosenthal MD 11/20/2018 01:10 P
== END ==
LOC: M RAD 07:22
PROVIDERS: ATTEND Physician Assistant
DX: M51.26 Other intervertebral disc displacement, lumbar region (principal)

== ENCOUNTER → 2018-12-30 | Outpatient (REF) ==
[~2018-12-30] MED LIST changes: -TRAZ-160; -TRAZ-160 PO; +TRAZ-252; +TRAZ-252 PO
--- NOTE | 2018-12-30 11:22 | REP ---
Lumbar spine four views AP and lateral projections: Comparison is 10/18/2017. Vertebral body heights, interspacing alignment are normal. There is no spondylolysis or spondylolisthesis. The pedicles, facets and sacroiliac articulations are unremarkable. S1 spina bifida occulta is again identified as an anatomic variant. Impression: Essentially negative lumbar spine. No interval change. Electronically Signed by Vasile Miller MD 12/30/2018 11:14 A
== END ==
LOC: M SMT 09:51
PROVIDERS: ATTEND Internal Medicine
DX: M54.5 Low back pain (principal)

== ENCOUNTER 2019-04-30 10:35 | Emergency (ER) | payer OTHER ==
[~2019-04-30] VITALS: Ht 167.6 cm; Wt 134.2 kg
[2019-04-30] MEDS ORDERED: OMEP-218 PO (10:45)
[2019-04-30] MEDS ORDERED: KETOROLAC 60 MG/2 ML VIAL (J1885) IM ONE (11:15)
[2019-04-30] MEDS ORDERED: CYCLOBENZAPRINE 10 MG TAB PO ONE (11:15)
[2019-04-30] MEDS ORDERED: CYCL10TA PO (11:18)
[2019-04-30 12:01] VITALS: BP 142/96
== END 2019-04-30 12:03 | disposition home or self-care (01) ==
LOC: M ED 10:35
DX: M54.5 Low back pain (principal); I10 Essential (primary) hypertension; E03.9 Hypothyroidism, unspecified; M51.9 Unspecified thoracic, thoracolumbar and lumbosacral intervertebral disc disorder; Z87.891 Personal history of nicotine dependence; Z79.899 Other long term (current) drug therapy
CPT/HCPCS: 84702; 96372; 99283; J1885

== ENCOUNTER 2019-09-27 14:44 | Emergency (ER) | payer OTHER ==
[~2019-09-27] VITALS: Ht 165.1 cm; Wt 123.5 kg
[~2019-09-27 14:44] MED LIST changes: +CYCL10TA PO; +OMEP-218 PO; +ZONI100C17 PO; -ZONI100C2 PO
[2019-09-27 14:45] VITALS: BP 141/73
[2019-09-27] MEDS ORDERED: TRAZ-257 PO (14:57)
[2019-09-27] MEDS ORDERED: SYMBICORT 80/4.5MCG INHALER 6GM INH STA (15:51)
[2019-09-27] MEDS ORDERED: COMBIVENT RESPIMAT 100-20MCG INHALER 4GM INH ONE (16:00)
[2019-09-27 16:26] LABS: INFLUENZA A AMPLIFICATION NEGATIVE (NEGATIVE); INFLUENZA B AMPLIFICATION NEGATIVE (NEGATIVE)
[2019-09-27] MEDS ORDERED: PENI500T PO (16:31)
[2019-09-27] MEDS ORDERED: METH4PACK PO (16:31)
[2019-09-27] MEDS ORDERED: PENICILLIN V POTASSIUM 500 MG TAB PO ONE (16:45)
[2019-09-27] MEDS ORDERED: methylPREDNISolone 4 MG TAB PO ONE (16:45)
[2019-09-27] MEDS ORDERED: SYMBICORT 80/4.5MCG INHALER 6GM INH SCH (21:00)
--- NOTE | 2019-09-28 08:30 | REP ---
REASON: Coughing and wheezing. COMPARISON: 08/07/2018. FINDINGS: The superior mediastinal structures are midline. The cardiac silhouette is unremarkable in size, shape, and position. The diaphragmatic surfaces of the lungs are regular, and the costophrenic angles are clear. The pulmonary moore are clear. The imaged osseous structures are intact. IMPRESSION: There is no acute cardiopulmonary disease. Electronically Signed by Isak Cotter DO 09/28/2019 01:31 P
== END 2019-09-27 16:54 | disposition home or self-care (01) ==
LOC: M ED 14:44
DX: J02.0 Streptococcal pharyngitis (principal); Z87.891 Personal history of nicotine dependence; Z79.899 Other long term (current) drug therapy

== ENCOUNTER → 2020-06-06 | Outpatient (REF) | payer OTHER, MEDICAID ==
[~2020-06-06] MED LIST changes: -AMLO10TA5; -AMLO10TA5 PO; +AMLO1TAB25; +AMLO1TAB25 PO; +CYCL-707 PO; -CYCL10TA PO; +METH4PACK PO; +PENI500T PO; +TRAZ-257 PO
[2020-06-06 17:58] LABS: BASO # 0.1 10^3/uL (0.0-0.2); BASO % 0.6 % (0.0-1.0); EOS # 0.2 10^3/uL (0.0-0.5); EOS % 2.1 % (0.0-3.0); HEMATOCRIT 39.5 % (36.0-47.0); HEMOGLOBIN 12.8 g/dl (12.0-15.5); LYMPH % 23.4 % (24.0-44.0); MEAN CORPUSCULAR HEMOGLOBIN 26.7 pg (27.0-33.0); MEAN CORPUSCULAR HGB CONC 32.4 g/dl (32.0-36.5); MEAN CORPUSCULAR VOLUME 82.3 fl (80.0-96.0); MONO # 0.6 10^3/uL (0.0-0.8); MONO % 7.5 % (0.0-5.0); NEUTROPHILS # 5.5 10^3/uL (1.5-8.5); NEUTROPHILS % 65.1 % (36.0-66.0); PLATELET COUNT, AUTOMATED 312 10^3/uL (150-450); WHITE BLOOD COUNT 8.4 10^3/uL (4.0-10.0)
[2020-06-06 18:26] LABS: ALBUMIN 3.9 GM/DL (3.2-5.2); ALT/SGPT 50 U/L (12-78); BILIRUBIN,TOTAL 0.4 MG/DL (0.2-1.0); BLOOD UREA NITROGEN 8 MG/DL (7-18); CALCIUM LEVEL 9.4 MG/DL (8.5-10.1); CARBON DIOXIDE LEVEL 27 MEQ/L (21-32); CHLORIDE LEVEL 109 MEQ/L (98-107); CHOLESTEROL LEVEL 159 MG/DL (<200); CHOLESTEROL RISK RATIO 5.888 (<5); CREATININE FOR GFR 0.71 MG/DL (0.55-1.30); FREE T4 0.93 NG/DL (0.76-1.46); GLOMERULAR FILTRATION RATE > 60.0 (>60); GLUCOSE, FASTING 102 MG/DL (70-100); HDL CHOLESTEROL 27 MG/DL (>40); LDL CHOLESTEROL 85 MG/DL (<100); NON-HDL-C 132 MG/DL; SODIUM LEVEL 140 MEQ/L (136-145); TOTAL PROTEIN 7.3 GM/DL (6.4-8.2); TRIGLYCERIDES LEVEL 236 MG/DL (<150)
[2020-06-06 18:27] LABS: TOTAL 25(OH) VITAMIN D 15.9 NG/ML (30.0-100.0)
[2020-06-06 19:08] LABS: HEMOGLOBIN A1c 5.5 %
== END ==
LOC: M LAB REF 16:26
PROVIDERS: ATTEND Nurse Practitioner Family
DX: E55.9 Vitamin D deficiency, unspecified (principal); I10 Essential (primary) hypertension; Z13.9 Encounter for screening, unspecified; G47.00 Insomnia, unspecified; E66.01 Morbid (severe) obesity due to excess calories; E03.9 Hypothyroidism, unspecified

== ENCOUNTER → 2020-10-27 | Outpatient (REF) | payer OTHER ==
[2020-10-27 14:16] LABS: HEMATOCRIT 38.9 % (36.0-47.0); HEMOGLOBIN 11.9 g/dl (12.0-15.5); MEAN CORPUSCULAR HGB CONC 30.6 g/dl (32.0-36.5); MEAN CORPUSCULAR VOLUME 84.9 fl (80.0-96.0); PLATELET COUNT, AUTOMATED 341 10^3/uL (150-450); RED BLOOD COUNT 4.58 10^6/uL (4.00-5.40); WHITE BLOOD COUNT 10.8 10^3/uL (4.0-10.0)
== END ==
LOC: M PLALAB 09:47
PROVIDERS: ATTEND Nurse Practitioner Women's Health
DX: N93.9 Abnormal uterine and vaginal bleeding, unspecified (principal)

== ENCOUNTER → 2020-11-21 | Outpatient (REF) | payer OTHER | LOC: M SFHCWAGY 12:56 | PROVIDERS: ATTEND Nurse Practitioner Women's Health | DX: N93.9 Abnormal uterine and vaginal bleeding, unspecified (principal) ==

== ENCOUNTER → 2020-11-21 | Outpatient (CLI) | payer OTHER ==
--- NOTE | 2020-11-21 16:05 | REP ---
INDICATION: N93.9 ABNORMAL UTERINE BLEEDING COMPARISON: 12/24/2016 TECHNIQUE: Transabdominal pelvic ultrasound followed by transvaginal examination for better evaluation of the endometrium and adnexa with color Doppler evaluation of the ovaries. FINDINGS: Bladder is unremarkable and measures 4.8 x 4.9 x 4.7 cm. Heterogeneous anteverted uterus measures 9.5 x 4.1 x 5.3 cm. The endometrial complex measures 15 mm thickness. Few nabothian cysts along with small amount of endocervical fluid noted. Bilateral ovaries are normal in appearance and vascularity without evidence for torsion. Right ovary measures 2.4 x 2.6 x 3.1 cm; R I = 0.61. Left ovary measures 2.6 x 2.8 x 2.4 cm; R I = 0.52. No pelvic fluid or adnexal mass lesion IMPRESSION: Essentially normal pelvic ultrasound. Relatively insignificant nonacute findings as noted above. <Electronically signed by Som Buckner > 11/21/20 [id number]
== END ==
LOC: M WHC 12:09
PROVIDERS: ATTEND Nurse Practitioner Women's Health
DX: N93.9 Abnormal uterine and vaginal bleeding, unspecified (principal); N88.8 Other specified noninflammatory disorders of cervix uteri

== ENCOUNTER → 2020-12-20 | Outpatient (REF) | payer OTHER | LOC: M SFHCWAGY 09:52 | PROVIDERS: ATTEND Nurse Practitioner Women's Health | DX: N93.9 Abnormal uterine and vaginal bleeding, unspecified (principal); Z11.3 Encounter for screening for infections with a predominantly sexual mode of transmission; Z32.02 Encounter for pregnancy test, result negative ==

== ENCOUNTER 2021-01-06 15:14 | Emergency (ER) | payer OTHER ==
[~2021-01-06] VITALS: Ht 167.6 cm; Wt 143.6 kg
[2021-01-06] MEDS ORDERED: KETOROLAC TROMETHAMINE 10 MG TAB PO ONE (16:35)
[2021-01-06] MEDS ORDERED: BACL10TA2 PO (16:57)
[2021-01-06] MEDS ORDERED: GABA-282 PO (16:57)
[2021-01-06] MEDS ORDERED: MELO15TA28 PO (16:57)
--- NOTE | 2021-01-06 17:51 | REP ---
INDICATION: pain/swelling COMPARISON: None. TECHNIQUE: AP, lateral, bilateral oblique views. FINDINGS: Generalized soft tissue swelling noted. No acute fracture or dislocation. Skeletal structures and joint spaces are intact and normal. Ankle mortise appears stable. No subcutaneous emphysema or radiodense foreign body. Lateral view demonstrates moderate calcaneal heel spur. IMPRESSION: Generalized swelling. No acute fracture or dislocation appreciated <Electronically signed by Som Buckner > 01/06/21 [id number]
--- NOTE | 2021-01-06 17:51 | REP ---
INDICATION: pain/swelling COMPARISON: None. TECHNIQUE: AP, lateral, bilateral oblique views right foot. FINDINGS: Mild soft tissue swelling is suggested. The osseous structures and joint spaces are intact and normal. There is no evidence for acute fracture or dislocation. No subcutaneous emphysema or radiodense foreign body. Lateral view demonstrates moderate calcaneal heel spur. IMPRESSION: Mild swelling.. No acute fracture or dislocation. <Electronically signed by Som Buckner > 01/06/21 [id number]
[2021-01-06] MEDS ORDERED: PRED20TA PO (18:23)
[2021-01-06 18:44] VITALS: BP 138/82
== END 2021-01-06 18:50 | disposition home or self-care (01) ==
LOC: M ED 15:14
DX: M79.671 Pain in right foot (principal); R56.9 Unspecified convulsions; J45.909 Unspecified asthma, uncomplicated; I10 Essential (primary) hypertension; E03.9 Hypothyroidism, unspecified; M51.9 Unspecified thoracic, thoracolumbar and lumbosacral intervertebral disc disorder; F41.9 Anxiety disorder, unspecified; F31.89 Other bipolar disorder; Z79.899 Other long term (current) drug therapy

== ENCOUNTER 2021-03-27 16:33 | Emergency (ER) | payer OTHER ==
[~2021-03-27] VITALS: Ht 167.6 cm; Wt 143.7 kg
[2021-03-27 16:33] VITALS: BP 146/86
[~2021-03-27 16:33] MED LIST changes: +GABA-282 PO; +MELO15TA28 PO
== END 2021-03-28 00:24 | disposition left against medical advice (07) ==
LOC: M ED 16:33
DX: Z53.21 Procedure and treatment not carried out due to patient leaving prior to being seen by health care provider (principal)

== ENCOUNTER 2021-06-06 23:13 | Emergency (ER) | payer OTHER ==
[~2021-06-06] VITALS: Ht 167.6 cm; Wt 139.1 kg
--- OUTSIDE RECORDS SUMMARY | 2021-06-06 23:21 | CCD ---
Author Author [facility] Organization [facility] Address Unknown Phone Unavailable Support Name Relationship Address Phone NEYMAR RONQUILLO Next Of Kin [address] [place] [address] PEREZ, NEYMAR Next Of Kin Unknown Renzo Simpson (Boyfriend) Next Of Kin Alley Lenny - Friend [phone] Cell, Unavailable SONIC Next Of Kin [address] [place] [address] ALLEY DOUGLASS Next Of Kin [address] [place] [address] Chetna Dugan Next Of Kin [address] [place] [address] JERRY RIVER[place] [address] NO, CONTACT Next Of Kin [address] [facility] [address] [place] [address] JERR[place] [address] Beverley Aguillon Next Of Kin [address] [place], [place] [id number] RENZO SIMPSON Next Of Kin [address] [facility] [address] [place] [address] KARLA MATHEW Next Of Kin [address] [place] [address] Unavailable LATA RODRIGUEZ Next Of Kin [address] [facility] [address] [place] [address] ANDREA BYNUM Next Of Kin [address] [address] UE Next Of Kin Unknown Unavailable KRAIG LORD Next Of Kin [address] [place] [address] JERRY LORD Next Of Kin [address] [facility], [address] ODIN MATHEW Next Of Kin [address] [facility], [address] NEYMAR RONQUILLO [address] [address] [place] [address] Unavailable Care Team Providers Care Reel Tender Name Role Phone Maring, Byron PA Unavailable Unavailable Maring, Byron PA Unavailable Unavailable Maring, Byron PA Unavailable Unavailable Maring, Byron PA Unavailable Unavailable Maring, Byron PA Unavailable Unavailable Maring, Byron PA Unavailable Unavailable Maring, Byron PA Unavailable Unavailable Maring, Byron PA Unavailable Unavailable Maring, Byron PA Unavailable Unavailable Maring, Byron PA Unavailable Unavailable Maring, Byron PA Unavailable Unavailable Maring, Byron PA Unavailable Unavailable Maring, Byron PA Unavailable Unavailable Maring, Byron PA Unavailable Unavailable Maring, Byron PA Unavailable Unavailable Maring, Byron PA Unavailable Unavailable Riley Caicedo MD Unavailable Unavailable Riley Caicedo MD Unavailable Unavailable Riley Caicedo MD Unavailable Unavailable Riley Caicedo MD Unavailable Unavailable Riley Caicedo MD Unavailable Unavailable Riley Caicedo MD Unavailable Unavailable Riley Caicedo MD Unavailable Unavailable Riley Caicedo MD Unavailable Unavailable Riley Caicedo MD Unavailable Unavailable Riley Caicedo MD Unavailable Unavailable Riley Caicedo MD Unavailable Unavailable Riley Caicedo MD Unavailable Unavailable Riley Caicedo MD Unavailable Unavailable Riley Caicedo MD Unavailable Unavailable Riley Caicedo MD Unavailable Unavailable Riley Caicedo MD Unavailable Unavailable Riley Caicedo MD Unavailable Unavailable Riley Caicedo MD Unavailable Unavailable Riley Caicedo MD Unavailable Unavailable Riley Caicedo MD Unavailable Unavailable Riley Caicedo MD Unavailable Unavailable Riley Caicedo MD Unavailable Unavailable Riley Caicedo MD Unavailable Unavailable Riley Caicedo MD Unavailable Unavailable Riley Caicedo MD Unavailable Unavailable Riley Caicedo MD Unavailable Unavailable Riley Caicdeo MD Unavailable Unavailable Riley Caicedo MD Unavailable Unavailable Riley Caicedo MD Unavailable Unavailable Riley Caicedo MD Unavailable Unavailable Riley Caicedo MD Unavailable Unavailable Riley Caicedo MD Unavailable Unavailable Riley Caicedo MD Unavailable Unavailable Riley Caicedo MD Unavailable Unavailable Riley Caicedo MD Unavailable Unavailable Riley Caicedo MD Unavailable Unavailable Riley Caicedo MD Unavailable Unavailable Riley Caicedo MD Unavailable Unavailable Riley Caicedo MD Unavailable Unavailable Riley Caicedo MD Unavailable Unavailable Riley Caicedo MD Unavailable Unavailable CaicedoRiley MD Unavailable Unavailable CaicedoRiley MD Unavailable Unavailable CaicedoRiley MD Unavailable Unavailable CaicedoRiley MD Unavailable Unavailable CaiecdoRiley MD Unavailable Unavailable Riley Caicedo MD Unavailable Unavailable Riley Caicedo MD Unavailable Unavailable Riley Caicedo MD Unavailable Unavailable Riley Caicedo MD Unavailable Unavailable Riley Caicedo MD Unavailable Unavailable Riley Caicedo MD Unavailable Unavailable CaicedoRiley MD Unavailable Unavailable Caicedo, Riley Fox MD Unavailable Unavailable CaicedoRiley MD Unavailable Unavailable CaicedoRiley MD Unavailable Unavailable CaicedoRiley MD Unavailable Unavailable Riley Caicedo MD Unavailable Unavailable Riley Caicedo MD Unavailable Unavailable Riley Caicedo MD Unavailable Unavailable CaicedoRiley MD Unavailable Unavailable CaicedoRiley MD Unavailable Unavailable CaicedoRiley MD Unavailable Unavailable Riley Caicedo MD Unavailable Unavailable Riley Caicedo MD Unavailable Unavailable Riley Caicedo MD Unavailable Unavailable Riley Caicedo MD Unavailable Unavailable Riley Caicedo MD Unavailable Unavailable Riley Caicedo MD Unavailable Unavailable Riley Caicedo MD Unavailable Unavailable Rliey Caicedo MD Unavailable Unavailable Riley Caicedo MD Unavailable Unavailable Riley Caicedo MD Unavailable Unavailable Riley Caicedo MD Unavailable Unavailable Riley Caicedo MD Unavailable Unavailable Riley Caicedo MD Unavailable Unavailable Riley Caicedo MD Unavailable Unavailable Riley Caicedo MD Unavailable Unavailable Riley Caicedo MD Unavailable Unavailable Riley Caicedo MD Unavailable Unavailable Riley Caicedo MD Unavailable Unavailable Riley Caicedo MD Unavailable Unavailable Riley Caicedo MD Unavailable Unavailable Riley Caicedo MD Unavailable Unavailable Riley Caicedo MD Unavailable Unavailable Riley Caicedo MD Unavailable Unavailable Riley Caicedo MD Unavailable Unavailable Riley Caicedo MD Unavailable Unavailable Riley Caicedo MD Unavailable Unavailable Riley Caicedo MD Unavailable Unavailable Riley Caicedo MD Unavailable Unavailable Riley Caicedo MD Unavailable Unavailable Riley Caicedo MD Unavailable Unavailable Chetna Wake[place] COTTON ROLL PACKER COTTON ROLL PACKER Unavailable Unavailable Joanne, Cristina Unavailable Unavailable Joanne, Cristina Unavailable Unavailable Joanne, Cristina Unavailable Unavailable Joanne, Cristina Unavailable Unavailable Joanne, Cristina Unavailable Unavailable Joanne, Cristina Unavailable Unavailable Joanne, Cristina Unavailable Unavailable Joanne, Cristina Unavailable Unavailable Joanne, Cristina Unavailable Unavailable Joanne, Cristina Unavailable Unavailable Joanne, Cristina Unavailable Unavailable Joanne, Cristina Unavailable Unavailable Joanne, Cristina Unavailable Unavailable Joanne, Cristina Unavailable Unavailable Joanne, Cristina Unavailable Unavailable Joanne, Cristina Unavailable Unavailable Joanne, Cristina Unavailable Unavailable Joanne, Cristina Unavailable Unavailable Joanne, Cristina Unavailable Unavailable Joanne, Cristina Unavailable Unavailable Joanne, Cristina Unavailable Unavailable Joanne, Cristina Unavailable Unavailable Joanne, Cristina Unavailable Unavailable Joanne, Cristina Unavailable Unavailable Joanne, Cristina Unavailable Unavailable Joanne, Cristina Unavailable Unavailable Joanne, Cristina Unavailable Unavailable Ashu, A Chetna COTTON ROLL PACKER Unavailable Unavailable Norwood, A Chetna COTTON ROLL PACKER Unavailable Unavailable Norwood, A Chetna COTTON ROLL PACKER Unavailable Unavailable Norwood, A Chetna COTTON ROLL PACKER Unavailable Unavailable Norwood, A Chetna COTTON ROLL PACKER Unavailable Unavailable Norwood, A Chetna COTTON ROLL PACKER Unavailable Unavailable Norwood, A Chetna COTTON ROLL PACKER Unavailable Unavailable Norwood, A Chetna COTTON ROLL PACKER Unavailable Unavailable Norwood, A Chetna COTTON ROLL PACKER Unavailable Unavailable Norwood, A Chetna COTTON ROLL PACKER Unavailable Unavailable Norwood, A Chetna COTTON ROLL PACKER Unavailable Unavailable Norwood, A Chetna COTTON ROLL PACKER Unavailable Unavailable Norwood, A Chetna COTTON ROLL PACKER Unavailable Unavailable Norwood, A Chetna COTTON ROLL PACKER Unavailable Unavailable Norwood, A Chetna COTTON ROLL PACKER Unavailable Unavailable Norwood, A Chetna COTTON ROLL PACKER Unavailable Unavailable Norwood, A Chetna COTTON ROLL PACKER Unavailable Unavailable Norwood, A Chetna COTTON ROLL PACKER Unavailable Unavailable Norwood, A Chetna COTTON ROLL PACKER Unavailable Unavailable Norwood, A Chetna COTTON ROLL PACKER Unavailable Unavailable Norwood, A Chetna COTTON ROLL PACKER Unavailable Unavailable Norwood, A Chetna COTTON ROLL PACKER Unavailable Unavailable Norwood, A Chetna COTTON ROLL PACKER Unavailable Unavailable Norwood, A Chetna COTTON ROLL PACKER Unavailable Unavailable Norwood, A Chetna COTTON ROLL PACKER Unavailable Unavailable Norwood, A Chetna COTTON ROLL PACKER Unavailable Unavailable Norwood, A Chetna COTTON ROLL PACKER Unavailable Unavailable Norwood, A Chetna COTTON ROLL PACKER Unavailable Unavailable Norwood, A Chetna COTTON ROLL PACKER Unavailable Unavailable Norwood, A Chetna COTTON ROLL PACKER Unavailable Unavailable Norwood, A Chetna COTTON ROLL PACKER Unavailable Unavailable Norwood, A Chetna COTTON ROLL PACKER Unavailable Unavailable Norwood, A Chetna COTTON ROLL PACKER Unavailable Unavailable Norwood, A Chetna COTTON ROLL PACKER Unavailable Unavailable Norwood, A Chetna COTTON ROLL PACKER Unavailable Unavailable Norwood, A Chetna COTTON ROLL PACKER Unavailable Unavailable Norwood, A Chetna COTTON ROLL PACKER Unavailable Unavailable Norwood, A Chetna COTTON ROLL PACKER Unavailable Unavailable Norwood, A Chetna COTTON ROLL PACKER Unavailable Unavailable Ashu, A Chetna COTTON ROLL PACKER Unavailable Unavailable Ashu, A Hcetna COTTON ROLL PACKER Unavailable Unavailable Ashu, A Chetna COTTON ROLL PACKER Unavailable Unavailable Ashu, A Chetna COTTON ROLL PACKER Unavailable Unavailable Ashu, A Chetna COTTON ROLL PACKER Unavailable Unavailable Ashu, A Chetna COTTON ROLL PACKER Unavailable Unavailable Ashu, A Chetna COTTON ROLL PACKER Unavailable Unavailable Ashu, A Chetna COTTON ROLL PACKER Unavailable Unavailable Ashu, A Chetna COTTON ROLL PACKER Unavailable Unavailable Ashu, A Chetna COTTON ROLL PACKER Unavailable Unavailable Ashu, A Chetna COTTON ROLL PACKER Unavailable Unavailable Ashu, A Chetna COTTON ROLL PACKER Unavailable Unavailable Ashu, A Chetna COTTON ROLL PACKER Unavailable Unavailable Ashu, A Chetna COTTON ROLL PACKER Unavailable Unavailable Ashu, A Chetna COTTON ROLL PACKER Unavailable Unavailable Ashu, A Chetna COTTON ROLL PACKER Unavailable Unavailable Ashu, A Chetna COTTON ROLL PACKER Unavailable Unavailable Ashu, A Chetna COTTON ROLL PACKER Unavailable Unavailable Ashu, A Chetna COTTON ROLL PACKER Unavailable Unavailable Ashu, A Chetna COTTON ROLL PACKER Unavailable Unavailable Ashu, A Chetna COTTON ROLL PACKER Unavailable Unavailable Ashu, A Chetna COTTON ROLL PACKER Unavailable Unavailable Ashu, A Chetna COTTON ROLL PACKER Unavailable Unavailable Kiara CLEARY MD Unavailable Unavailable CHANLIECMONSTER, Kiara CHAVEZ MD Unavailable Unavailable CHANLIECMONSTER, Kiara CHAVEZ MD Unavailable Unavailable CHANLIECMONSTER, Kiara CHAVEZ MD Unavailable Unavailable CHANLIECMONSTER, Kiara CHAVEZ MD Unavailable Unavailable CHANLIECMONSTER, Kiara CHAVEZ MD Unavailable Unavailable CHANLIECMONSTER, Kiara CHAVEZ MD Unavailable Unavailable CHANLIECMONSTER, Kiara CHAVEZ MD Unavailable Unavailable CHANLIECMONSTER, Kiara CHAVEZ MD Unavailable Unavailable CHANLIECMONSTER, Kiara CHAVEZ MD Unavailable Unavailable CHANLIECMONSTER, Kiara CHAVEZ MD Unavailable Unavailable LORENZA, M ULICES PA Unavailable Unavailable LORENZA, M ULICES PA Unavailable Unavailable LORENZA, M ULICES PA Unavailable Unavailable LORENZA, M ULICES PA Unavailable Unavailable LORENZA, M ULICES PA Unavailable Unavailable LORENZA, M ULICES PA Unavailable Unavailable LORENZA, M ULICES PA Unavailable Unavailable LORENZA, M ULICES PA Unavailable Unavailable LORENZA, M ULICES PA Unavailable Unavailable LORENZA, M ULICES PA Unavailable Unavailable LORENZA, M ULICES PA Unavailable Unavailable LORENZA, M ULICES PA Unavailable Unavailable LORENZA, M ULICES PA Unavailable Unavailable LORENZA, M ULICES PA Unavailable Unavailable LORENZA, M ULICES PA Unavailable Unavailable LORENZA, M ULICES PA Unavailable Unavailable LORENZA, M ULICES PA Unavailable Unavailable LORENZA, M ULICES PA Unavailable Unavailable LORENZA, M ULICES PA Unavailable Unavailable Jose BRITT Unavailable Unavailable Jose BRITT Unavailable Unavailable Jose BRITT Unavailable Unavailable Jose BRITT Unavailable Unavailable Jose BRITT Unavailable Unavailable Re-disclosure Warning The records that you are about to access may contain information from federally-assisted alcohol or drug abuse programs. If such information is present, then the following federally mandated warning applies: This information has been disclosed to you from records protected by federal confidentiality rules (42 CFR part 2). The federal rules prohibit you from making any further disclosure of this information unless further disclosure is expressly permitted by the written consent of the person to whom it pertains or as otherwise permitted by 42 CFR part 2. A general authorization for the release of medical or other information is NOT sufficient for this purpose. The Federal rules restrict any use of the information to criminally investigate or prosecute any alcohol or drug abuse patient.The records that you are about to access may contain highly sensitive health information, the redisclosure of which is protected by Article 27-F of the [facility] Public Health law. If you continue you may have access to information: Regarding HIV / AIDS; Provided by facilities licensed or operated by the [facility] Office of Mental Health; or Provided by the [facility] Office for People With Developmental Disabilities. If such information is present, then the following [facility] mandated warning applies: This information has been disclosed to you from confidential records which are protected by state law. State law prohibits you from making any further disclosure of this information without the specific written consent of the person to whom it pertains, or as otherwise permitted by law. Any unauthorized further disclosure in violation of state law may result in a fine or long-term sentence or both. A general authorization for the release of medical or other information is NOT sufficient authorization for further disc losure. Allergies and Adverse Reactions Type Description Substance Reaction Status Data Source(s ) Allergy to substance Allergy to substance Allergy to substance KEIRA ([facility]) Allergy to substance Allergy to substance Allergy to substance [facility] ([facility]) Family History Family Member Name Family Member Gender Family Member Status Date o f Status Description Data Source(s) Unknown Male Problem MEDENT ([facility]) Encounters Encounter Providers Location Date Indications Data Source(s ) Outpatient 04/27/2021 09:17:26 AM EDT - 021 09:38:05 AM EDT [facility] ([facility]) Albina Rubio MD: [address] [place] [phone], Ph. Attender: Albina Rubio [facility] Medical 01/23/2021 12:00:00 AM EDT KEIRA ([facility]) Emergency Attender: KATHY CLEARY MDConsultant: Saundra Wakefield COTTON ROLL PACKER 12/27/2020 01:36:00 PM EDT - 12/27/2020 04:09:00 PM EDT [facility] Patient discharged. Outpatient Attender: Byron PATEL 12/28/19 11:12:35 AM EDT - 12/27/2020 12:07:24 PM EDT [facility] ([facility] ) Outpatient [address] [facility] [id number] 12/20/2020 12:00:00 AM EDT eCW1 ([facility]) (WC PROC) [facility]Center Procedure [address] [place] [address] 11/21/2020 12:00:00 AM EDT eCW1 (Pending sale to [facility]) Outpatient [address] [facility] [id number] 10/27/2020 12:00:00 AM EDT eCW1 ([facility]) Outpatient Attender: ULICES PATEL Physical Therapy 01/2020 09:00:00 AM EST [facility] ([facility]) Ruddy Caicedo MD: [address] [place] [phone], Ph. Attender: Ruddy Caicedo MD [facility] Medical 06/06/2020 12:00:00 AM EST KEIRA ([facility]) Ruddy Caicedo MD: [address] [place] [phone], Ph. Attender: Ruddy Caicedo MD [facility] Medical 06/06/2020 12:00:00 AM EST KEIRA ([facility]) Ruddy Caicedo MD: [address] [place] [phone], Ph. Attender: Ruddy Caicedo MD [facility] Medical 06/06/2020 12:00:00 AM MARQUES CROCKETT ([facility]) Outpatient Attender: BERTA Wakefield [facility] 04/08/2020 05:59:00 P M EDT [facility] Outpatient Attender: Chetna Wakefield [facility] 04/07/2020 07:0 4:01 PM EDT [facility] Immunizations Vaccine Date Status Description Data Source(s) COVID-19 VACCINE [facility] 04/08/2021 12:00:00 AM EDT completed MDSIIS Vaccine Series Complete: YESThis Data wa s Submitted to [facility]. COVID-19 VACCINE [facility] 03/06/2021 12:00:00 AM EDT completed [place] Vaccine Series Complete: NOThis Data was Submitted to [facility] [employer]. Medications Medication Brand Name Start Date Product Form Dose Route Admi nistrative Instructions Pharmacy Instructions Status Indications Reaction Description Data Source(s) 100 mcg 01/23/2021 12:00:00 AM EDT tablet 30 TAKE ONE TABLET BY MOUTH EVERY MORNING ON EMPTY STOMACH TAKE ONE TABLET BY MOUTH EVERY MORNING O N EMPTY STOMACH SOLD: 01/23/2021 [facility] 10 mg 01/23/2021 12:00:00 AM EDT tablet 30 TAKE ONE TABLET BY MOUTH EVERY DAY TAKE ONE TABLET BY MOUTH EVERY DAY SOLD: 01/23/2021 [facility] 4 mg 01/23/2021 12:00:00 AM EDT tablet 30 TAKE ONE TABLET BY MOUTH THREE TIMES A DAY NEEDED FOR NAUSEA TAKE ONE TABLET BY MOUTH THREE TIMES A D AY NEEDED FOR NAUSEA SOLD: 01/23/2021 [facility] 20 mg 01/23/2021 12:00:00 AM EDT capsule,delayed release (DR/EC) 30 TAKE ONE CAPSULE BY MOUTH EVERY DAY TAKE ONE CAPSULE BY MOUTH EVERY DAY SOLD: 01/23/2021 [facility] 20 mg 01/06/2021 12:00:00 AM EDT tablet 15 TAKE THREE TABLETS BY MOUTH EVERY DAY TAKE THREE TABLETS BY MOUTH EVERY DAY SOLD: 01/23/2021 [facility] 15 mg 07/25/2020 12:00:00 AM EST tablet 30 TAKE ONE TABLET BY MOUTH EVERY DAY WITH FOOD OR MILK TAKE ONE TABLET BY MOUTH EVERY DAY WITH FOOD OR MILK S OLD: 07/25/2020 [facility] 300 mg 07/25/2020 12:00:00 AM EST capsule 90 TAKE 1 CAPSULE BY MOUTH AT BEDTIME FOR 7 DAYS, THEN 1 TWICE A DAY FOR 7 DAYS, TAKE 1 THREE TIMES A DAY TAKE 1 CAPSULE BY MOUTH AT BEDTIME FOR 7 DAYS, THEN 1 TWICE A DAY FOR 7 DAYS, TAKE 1 THREE TIMES A DAY SOLD: 07/25/2020 [facility] 20 mg 07/25/2020 12:00:00 AM EST capsule,delayed release (DR/EC) 30 TAKE ONE CAPSULE BY MOUTH EVERY DAY TAKE ONE CAPSULE BY MOUTH EVERY DAY SOLD: 07/25/2020 [facility] 10 mg 07/25/2020 12:00:00 AM EST tablet 30 TAKE ONE TABLET BY MOUTH TWICE A DAY NEEDED FOR MUSCLE SPASMS TAKE ONE TABLET BY MOUTH TWICE A DAY NEEDED FOR MUSCLE SPASMS SOLD: 07/25/2020 [facility] gabapentin 300 MG Oral Capsule Gabapentin 06/20/2020 12:00:00 AM EST ORAL active MEDENT ([facility]) Fluoxetine 10 MG Oral Capsule fluoxetine 10 mg capsule fluox etine 10 mg capsule completed fluoxetine 10 MG Oral Capsule ISABELLA ([facility]) meloxicam 15 MG Oral Tablet meloxicam 15 mg tablet meloxicam 15 mg ta blet completed meloxicam 15 MG Oral Tablet KEIRA ([facility]) Prednisone 20 MG Oral Tablet prednisone 20 mg tablet prednisone 20 mg tablet completed prednisone 20 MG Oral Tablet [facility] ([facility]) Polyethylene Glycol 400 4 MG/ML / Propyl lizet glycol 3 MG/ML Ophthalmic Solution [Systane] Systane Ultra (PF) 0.4 %-0.3 % eye drops in a dropperette INSTILL 1 DROP IN EACH EYE FOUR TIMES A DAY NEEDED FOR BURNING EYES Systane Ultra (PF) 0.4 %-0.3 % eye drops in a dropperette INSTILL 1 DROP IN EACH EYE FOUR TIMES A DAY NEEDED FOR BURNING EYES complet ed polyethylene glycol 400 4 MG/ML / propylene glycol 3 MG/ML Ophthalmic Solution [Systane] KEIRA ([facility]) Insurance Providers Payer name Policy type / Coverage type Policy ID Covered democrat ID Covered democrat's relationship to kulkarni Policy Kulkarni Plan Information Medicaid [place] Medigap Part B [id number] Family Dependent [id number] Medicaid S [id number] S [id number] Managed Care - [facility] P [id number] S [id number] Medicaid S [id number] S [id number] [facility] [id number] Self [id number] Managed Care - [facility] P [id number] S [id number] Medicaid S [id number] S [id number] [facility] I [id number] Self [id number] [facility] COMMUNITY PLAN MCDO [id number] SP [id number] Managed Care - [facility] Community Plan P [id number] S [id number] Managed Care - [facility] P [id number] S [id number] Medicaid S [id number] S [id number] Managed Care - [facility] Community Plan P [id number] S [id number] [facility] Commercial Insurance Co. [id number] Self [id number] [facility] Commercial Insurance Co. [id number] Self [id number] RPR- Needs Payer Match [id number] Self [id number] [facility] Health Maintenance Organization (HMO) [id number] Self SELF PAY ONLY [id number] SP [id number] O UNAVAILABLE UNAVAILA BLE SELF PAY UNAVAILABLE SP UNAVAILA BLE EXCELLUS BCBS B [id number] S [id number] HMO BLUE [id number] SP [id number] SELF PAY SP UNAVAILABLE S UNAVAILA BLE BLUE [place] PL[place] [id number] BLUE [place] PLAN UNAVAILABLE UNAVAILABLE BCBS EX[facility]LL[facility] PL BC [id number] S [id number] UN COMMUNITY PLAN MCDO [id number] SP [id number] [facility] COMMUNITY PLAN MCDHMO [id number] SP [id number] [facility] COMMUNITY PLAN XIX [id number] [place] [id number] SP [id number] C EMEDNY [id number] SP [id number] [facility] Community Plan Commercial [id number] Self [id number] [facility] Community Plan Commercial [id number] Self [id number] MEDICAID [id number] SP [id number] [facility] Community Plan Commercial [id number] Self [id number] [facility] O [id number] S [id number] [facility] Community Plan Commercial [id number] Self [id number] [facility] Community Plan Commercial [id number] Self [id number] [facility] Health Maintenance Organization (HMO) [id number] Self [id number] [facility] Health Maintenance Organization (HMO) [id number] Self [id number] [facility](MCAID) O [id number] S [id number] [facility] COMMUNITY PLAN MCDO [id number] SP [id number] Problems, Conditions, and Diagnoses Code Display Name Description Problem Type Effective Dates Data Source(s) E039 Hypothyroidism, unspecified Hypothyroidism, unspecifie d Diagnosis 12/27/2020 01:36:00 PM EDT [facility] I10 Essential (primary) hypertension Essential (primary) h ypertension Diagnosis 12/27/2020 01:36:00 PM EDT [facility] [id number] Pain in right thigh Pain in right thigh Diagnosis 0 12/27/2020 01:36:00 PM EDT [facility] [id number] Pain in right ankle and joints of right foot Pain in right ankle and joints of right foot Diagnosis 12/27/2020 01:36:00 PM EDT [facility] [id number] Pain in right knee Pain in right knee Diagnosis 01:36:00 PM EDT [facility] [id number] Pain in right hip Pain in right hip Diagnosis 12/27/2020 01:36:00 PM EDT [facility] [id number] Pain in right lower leg Pain in right lower leg Diagno sis 12/27/2020 01:36:00 PM EDT [facility] F17.200 [id number] Tobacco use disorder Problem 10/27/2020 12:0 0:00 AM EDT [facility] ([facility]) Z68.43 [id number] Body mass index [BMI] 50.0-59.9, adult Pr oblem 10/27/2020 12:00:00 AM EDT [facility] ([facility]) E66.01 [id number] Morbid (severe) obesity due to excess jemal ories Problem 10/27/2020 12:00:00 AM EDT [facility] ([facility]) N93.9 [id number] Abnormal uterine bleeding (AUB) Problem 10/25/2020 12:00:00 AM EDT [facility] ([facility]) [id number] Clinical finding Clinical Finding Problem 019 12:00:00 AM EDT - 01/23/2021 12:00:00 AM EDT ISABELLA ([facility]) [id number] Disorder of head Disorder of Head Problem 017 12:00:00 AM EST - 01/23/2021 12:00:00 AM EDT ISABELLA ([facility]) [id number] Finding of menstrual bleeding Finding of Menstrual Ble eding Problem 05/27/2017 12:00:00 AM EST - 01/23/2021 12:00:00 AM EDT ISABELLA ([facility]) [id number] Finding of sensation of breast Finding of Sensation of Breast Problem 02/26/2017 12:00:00 AM EDT - 01/23/2021 12:00:00 AM EDT KEIRA ([facility]) [id number] Eye / vision finding Eye / Vision Finding Problem 07/05/2016 12:00:00 AM EST - 01/23/2021 12:00:00 AM EDT KEIRA ([facility]) Surgeries/Procedures Procedure Description Date Indications Data Source(s) Physical Therapy Eval - Low Complexity 07/18/2020 12:0 0:00 AM EST [facility] ([facility]) Results ID Date Data Source [id number] 04/27/2021 09:45:00 AM EDT [facility] Name Value Range Interpretation Code Description Data Nguyen rce(s) Supporting Document(s) SARS-CoV-2 RNA Resp Ql YANN+probe NOT DETECTED [facility] This lab was ordered by MAZIN henriquez and reported by MAZIN Macias. ID Date Data Source [id number] 12/28/2020 11:21:00 AM EDT [facility] [address] [place] [address] PHONE: [phone] FAX: [phone] Name .................. : POP Youssef Acct Number.................. : [id number] ROOM. ................. : TR-08 Number ................... : [id number] Stay type ............. : E/R Discharge Date......... ... : 12/27/20 Admit Date ......... : 12/27/20 Admit Phys .................... : MADIHA Date of ....... : 1995 Family Phys ................... : ASHU SOLANO Phone .................. : [phone] Age ................................ : 25 Film# .................. .:[id number] Sex ................................. : F Unsigned transcriptions are preliminary reports and do not represent a medical or legal document [place] [id number] COMPLETE:12/27/20 15:27 CML 55111 Reason(s): Pain, Limb RIGHT LOWER EXTREMITY DUPLEX DOPPLER ULTRASOUND: INDICATION: Pain. FINDINGS: There is normal compressibility of the deep venous system from the external iliac through the popliteal vein with normal augmentation identified. IMPRESSION: No evidence for any underlying DVT. Electronically Reviewed and Signed By Damián Westbrook M.D. , 12/28/20 11:21, [facility] Transcribe Initials: TARA , Transcribe Date: 12/28/20 00:55, Dictation Date: Copy for: JOSE M SANCHEZ via fax Copy for: EMERGENCY DEPT via mode Copy for: 710 MED REC DISCHARGED Page 1 of 1 Name Value Range Interpretation Code Description Data Nguyen rce(s) Supporting Document(s) ID Date Data Source [id number] 12/27/2020 01:36:00 PM EDT [facility] 1 OrderSheet [facility] Emergency Department [address] [place] [address] Phone #: ext- [phone] 12/27/2020 13:34 Patient: SAHARA LORD Sex: F : 1995 Age: 25yWEIGHT:163.2 kg (S) HEIGHT:66 inches (S) BMI:58.1ALLERGIES: No Known Drug AllergyCHIEF COMPLAINT: pain, swelling, pain, swelling, Rt, ankles, in:, Rt, legs, Rt, kneesDIAGNOSIS: Pain in lower limbLAB ORDERSOrder Description Priority Entered Acknowledged InitialedCBC w Diff STAT 14:18 12/27/2020 14:26 Aki Saucedo R.N. PA;CMP STAT 14:12/27/2020 14:26 Aki Saucedo R.N. PA;PT/PTT STAT 14:18 12/27/2020 14:26 Aki Saucedo R.N. PA;Lactic Acid STAT 14:12/27/2020 14:26 Aki Saucedo R.N. PA;Sed. Rate STAT 14:18 12/27/2020 14:26 Aki Saucedo R.N. PA;Urinalysis (Clean STAT 14:12/27/2020 Cancelled: Unable to Collect 16:14Catch) Baron Phan R.N. PA;CRP STAT 14:18 12/27/2020 14:26 Aki Saucedo R.N. PA;DIAGNOSTIC STUDY ORDERSOrder Description Priority Entered Acknowledged InitialedUS Lower Ext STAT 14:18 12/27/2020 14:26 Sheryl,Venous Right Aki Draper R.N.(Oxygen?(No)) PA; Reason for Study: Pain, Limb, Swelling, LimbMEDICATION/IV/DRIP/FLUID ORDERSOrder Description Priority Entered Acknowledged Initialed 2 OrderSheet [facility] Emergency Department [address] [place] [address] Phone #: [phone] ext- [phone] 12/27/2020 13:34 Patient: SAHARA LORD Sex: F : 1995 Age: 25yToradol IM 60 mg 14:18 12/27/2020 14:30 Aki Saucedo R.N.;GENERAL ORDERSOrder Description Priority Entered Acknowledged Initialed[Electronically signed by Baron Saucedo R.N. (16:14 12/27/2020)][Electronically signed by Aki Kidd (23:38 12/27/2020)][Electronically locked by Baron Saucedo R.N. (16:14 12/27/2020)] Name Value Range Interpretation Code Description Data Nguyen rce(s) Supporting Document(s) ID Date Data Source [id number] 12/27/2020 01:36:00 PM EDT [facility] 1 Medication Reconciliation Report [facility] Emergency Department [address] [place] [address] Phone #: ext- [phone] 12/27/2020 13:34 Patient: SAHARA LORD Sex: F : 1995 Age: 25yWeight: 163.2 kgHeight/Length: 66 in.BMI: 58.1ALLERGIES: No Known Drug AllergyThe patient's Home Medications are listed below:CONTINUE TAKING THE FOLLOWING MEDICATIONS: Baclofen Oral (10 mg), 2x a day, prn Levothyroxine Sodium Oral 100 mcg, daily Meloxicam Oral (15 mg), daily Omeprazole Oral (20 mg), daily traZODone HCl Oral (100 mg), dailyThe source(s) of the original Home Medication information:Not obtained.The following Medications were given to the patient in the Emergency Department:Toradol [IM] IM 60 mg, administered: 14:30 12/27/2020The following Medications were prescribed to the patient:None. Name Value Range Interpretation Code Description Data Nguyen rce(s) Supporting Document(s) ID Date Data Source [id number] 12/27/2020 01:36:00 PM EDT [facility] 1 Medication Administration Record [facility] Emergency Department [address] [place] [address] Phone #: ext- [phone] 12/27/2020 13:34 Patient: SAHARA LORD Sex: F : 1995 Age: 25yWeight: 163.2 kgHeight/Length: 66 inBMI: 58.1ALLERGIES: No Known Drug Allergy Date/Time Medication Administered Medication OrderedGiven TORADOL [IM] (KETOROLAC Toradol IM 60 mg14:30 12/27/2020 TROMETHAMINE)Baron Saucedo R.N. Dose: 60 mg IM Name Value Range Interpretation Code Description Data Nguyen rce(s) Supporting Document(s) ID Date Data Source [id number] 12/27/2020 01:36:00 PM EDT [facility] 1 General Instructions [facility] Emergency Department [address] [place] [address] Phone #: ext [phone] 12/27/2020 13:34 Patient: SAHARA LORD Sex: F : 1995 Age: 25yAcute right hip, thigh, knee, calf and ankle pain.INSTRUCTIONSWarnings: Further evaluation is necessary. It is very important to follow up with a healthcare provider.GENERAL WARNINGS: Return or contact your physician immediately if your condition worsens orchanges unexpectedly, if not improving as expected, or if other problems arise. Specifically return if painworsens.Your Current Medications: Your current home medications have been reviewed.CONTINUE TAKING THE FOLLOWING MEDICATIONS:Baclofen Oral : Tablet 10 mg, 2x a day, prn.Levothyroxine Sodium Oral : 100 mcg daily.Meloxicam Oral : Tablet Disintegrating 15 mg, daily.Omeprazole Oral : Tablet Delayed Release 20 mg, daily.traZODone HCl Oral : Tablet 100 mg, daily.Understanding of the discharge instructions verbalized by patient.Follow-up with: [facility], , , [address] [place] [address], ,[place], [address] Follow up tomorrow. Call for the next available appointment. Reason for referral: evaluation andtreatment. Summary of care provided to patient. ADDITIONAL INFORMATIONMyofascial Pain SyndromeYour pain is caused by a state of chronic muscle tension. This condition is called by various names:myofascial pain, fibrositis, and trigger point pain. This can also be due to mechanical stress, such asworking at a computer terminal for long periods or work that requires repetitive motions of the arms orhands. It can also be caused by emotional stress, such as problems on the job or in your personallife. Sometimes there is no obvious cause. The pain can happen in the area of the muscle spasm orat a site distant to it. For example, spasm of a neck muscle can cause headache. Spasm of themuscle near the shoulder blade can cause pain shooting down the arm. 2 General Instructions [facility] Emergency Department [address] [place] [address] Phone #: ext- [phone] 12/27/2020 13:34 Patient: SAHARA LORD Sex: F : 1995 Age: 25yHome care Try to identify the factors that may be causing your problem and change them: o If you feel that emotional stress is a cause of your pain, learn methods to better deal with the stress in your life. These may include regular exercise, muscle relaxation techniques, meditation, or simply taking time out for yourself. Talk with your healthcare provider or go to a local bookstore and review the many books and tapes about reducing stress. o If you feel that physical stress is a cause for your pain, try to change any poor work habits. You may use jxcx-slf-fgfkgts pain medicine to control pain, unless another medicine was prescribed. If you have chronic liver or kidney disease or ever had a stomach ulcer or gastrointestinal bleeding, talk with your healthcare provider before using these medicines. Apply an ice pack over the injured area for 15 to 20 minutes every 3 to 6 hours. You should do this for the first 24 to 48 hours. You can make an ice pack by filling a plastic bag that seals at the top with ice cubes and then wrapping it with a thin towel. Be careful not to injure your skin with the ice treatments. Ice should never be applied directly to skin. Continue the use of ice packs for relief of pain and swelling as needed. After 48 hours, apply heat (warm shower or warm bath) for 15 to 20 minutes several times a day, or alternate ice and heat. Massage the trigger point and stretch out the muscle. Trigger point massage can be done by applying heat to the area to warm and prepare the muscle. Then have someone apply steady thumb pressure directly on the knot in the muscle for 30 seconds. Release the pressure, then massage the surrounding muscle. Repeat the process, applying more pressure to the trigger point each time. Do this up to the limit of pain. With each treatment, the trigger point should become less tender and the pain should decrease. You can apply local pressure to trigger points in the back by lying on the floor with a tennis ball under the trigger point.Follow-up careFollow up with your healthcare provider, or as advised. You may need physical therapy if you don'trespond to home treatment alone.Call [phone] if you have: A trigger point in the chest muscles, pain that becomes more severe, lasts longer, or spreads into your shoulder, arm, or jaw Chest pain or discomfort 3 General Instructions [facility] Emergency Department [address] [place] [address] Phone #: ext- [phone] 12/27/2020 13:34 Patient: SAHARA LORD Sex: F : 1995 Age: 25y Trouble breathing with or without chest discomfort Sweating, lightheadedness, nausea, or vomiting along with chest discomfort Sudden weakness or numbness in the arm, leg, or face, especially if this happens on one side of the bodyWhen to seek medical adviceCall your healthcare provider right away if any of these occur: A week passes and you have not improved If your pain worsens, regardless of its location [phone] [employer]. [address] [place] [address], [place] [address]. All rights reserved. This information is not intended as asubstitute for professional medical care. Always follow your healthcare professional's instructions. You have been given the following additional information: Myofascial Pain Syndrome(Electronically signed by JORGE Martinez 12/27/2020 23:38) Name Value Range Interpretation Code Description Data Nguyen rce(s) Supporting Document(s) ID Date Data Source [id number] 12/27/2020 01:36:00 PM EDT [facility] 1 Clinical Report - Nurses [facility] Emergency Department [address] [place] [address] Phone #: ext- [phone] 12/27/2020 13:34 Patient: SAHARA LORD Sex: Kelly : 1995 Age: 25yTRIAGEHistorian: patient.Triage time: 13:46 12/27/2020. Acuity: LEVEL 4.Chief Complaint: RIGHT LOWER EXTREMITY PAIN.13:46 12/27/20. Alert. No acute distress.No injury occurred. This started today. Onset. 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 SEPSIS SCREEN NEGATIVE.No suspected or confirmed signs of infection present. --13:54 12/27/20 Jammie Tubbs RN13:46 12/27/20. BP: 133/98. MAP: 109. HR: 97. RR: 18. O2 saturation: 98%. Temp: 98 F. Pain level now:10/10. Describes the quality as aching. It has been constant. Pain level at maximum: 10/10. It is describedas radiating to the right hip, right thigh, right knee, right calf and right foot. It is worsened by exertion andmovement. --13:54 12/27/20 Jammie Tubbs RN.Weight: 163.2 kg stated. Height/Length: 66 inches Per Patient. BMI: 58.1. --13:45 12/27/20 YAMILA Crain.MedicationsLevothyroxine Sodium Oral 100 mcg, daily. --13:54 12/27/20 Fanny Khalil R.N. Meloxicam Oral (Tablet Disintegrating 15 mg), daily. --14:05 12/27/20 Fanny Khalil R.N. Omeprazole Oral (Tablet Delayed Release 20 mg), daily. --14:05 12/27/20 Fanny Khalil R.N. Baclofen Oral (Tablet 10 mg), 2x a day as needed. --14:06 12/27/20 Fanny Khalil R.N. traZODone HCl Oral (Tablet 100 mg), daily. --14:06 12/27/20 Fanny Khalil R.N.The following entry was struck and corrected by Fanny Khalil R.N., 14:06 (12/27/20) Reason for correction -other(correction). Levothyroxine Sodium Oral 1 tablet, daily. --13:54 12/27/20 Jammie Tubbs RN .AllergiesNo Known Drug Allergy. --13:47 12/27/20 Jammie Tubbs RN.PROBLEMS:Anxiety Reaction.Hypothyroidism. 2 Clinical Report - Nurses [facility] Emergency Department [address] [place] [address] Phone #: ext- [phone] 12/27/2020 13:34 [id number] Sex[facility] F : 1995 Age: 25yDepression.Gastroesophageal Reflux Disease.Scoliosis. --13:48 12/27/20 Jammie Tubbs RNHypertension. --13:54 12/27/20 Jammie Tubbs RNDDD.Abdominal Pain.Multiple ovarian cysts, last one in JUN.Multiple miscarriages.Irregular Periods. --14:07 12/27/20 Fanny Khalil R.N.ADDITIONAL SURGERIES:Appendectomy.Skin grafting. --13:48 12/27/20 Jammie Tubbs RN.Gornouj02:46 12/27/20.PAST MEDICAL HX: Tetanus status: up-to-date. Immunizations: up-to-date. Last normal menstrualperiod- October 21.SOCIAL HX: Never smoker. Occasional alcohol use. No drug use. She was offered HIV testing butdeclined and hepatitis C testing but declined. She has not traveled outside the [place]Infectious disease exposure: No infectious disease exposure. (Negative COVID screen). Patient is not aknown carrier of tuberculosis, hepatitis, HIV, MRSA or VRE. Patient is not a known carrier of CRE.SELF HARM ASSESSMENT: Self harm assessment was performed. The pat ient answered "no" to thequestion(s) "Do you have thoughts of harming or killing yourself?" and "Have you recently had thoughtsabout harming or killing others?".ABUSE ASSESSMENT: Abuse assessment. The patient had positive responses to the question(s) "Do youfeel safe in your home?" (yes). Abuse denied. No report of abuse.NUTRITIONAL RISK ASSESSMENT: The nutritional risk assessment revealed no deficiencies.FUNCTIONAL ASSESSMENT: Functional assessment: no impairments noted.LEARNING NEEDS ASSESSMENT: The learning needs assessment revealed no barriers.FALL RISK ASSESSMENT: Fall risk assessment completed. No risk factors identified.SKIN INTEGRITY ASSESSMENT: Skin integrity risk assessment completed. No skin integrity riskidentified. --13:54 12/27/20 Jammie Tubbs RN.Nhpbwoiqghgra83:46 12/27/20. To treatment room. Ambulatory by hospital staff. room 8. --13:55 12/27/20 Jammie Barraza Clinical Report - Nurses [facility] Emergency Department [address] [place] [address] Phone #: ext- [phone] 12/27/2020 13:34 Patient: SAHARA LORD Sex: F : 1995 Age: 25y YAMILA Tubbs.PHYSICAL VGXPKNTHLL09:26 12/27/20. Ambulatory to room. Patient gowned.GENERAL / NEURO / PSYCH: Oriented X 4. Alert. Appears in no acute distress.EXTREMITIES: Extremity pulses are within normal limits. Extremities exhibit normal ROM.Neuro-vascular status intact to the extremity. No lower extremity edema. Normal gait. Right knee:tenderness and swelling. Right ankle: tenderness and swelling. Right foot: tenderness and swelling.SKIN: Skin intact. Skin is warm and dry. --14:26 12/27/20 Baron Saucedo RPakoNURSING PROGRESS NOTES13:45 12/27/20. Patient gowned. Two patient identifiers checked. Call light placed in reach. Bedplaced in lowest position. Brakes of bed on. Patient ready for evaluation- PA notified. --13:55 12/27/20Jammie Tubbs RN 14:30 12/27/2020 Toradol (Ketorolac Tromethamine) IM 60 mg given. Given in the right deltoid and left deltoid. Allergies verified and confirmed 5 rights. Information reviewed with patient including reason for taking this medication, signs of allergic reaction and precautions. Verbalizes understanding. --14:30 12/27/20 Baron Saucedo R.N. 15:03 12/27/20. Reassurance given. Reassessment acuity: LEVEL 3. Reassessment after medication administered. No adverse reaction. Pain still present but improving. She reports no complaints and she is calm and resting quietly. Overall patient status is improved- she states feels better. GENERAL / NEURO / PSYCH: Alert. Oriented X 4. RESPIRATORY: No respiratory distress. CVS: Capillary refill less than 2 seconds. EXTREMITIES: Neuro-vascular status intact to the extremities. SKIN: Skin is warm and dry. Two patient identifiers checked. Call light placed in reach. Side rails up x 1. Bed placed in lowest position. Brakes of bed on. Patient ready for evaluation- PA notified. --15:03 12/27/20 Baron Saucedo R.N. 15:32 12/27/20. Patient returned from sonogram by wheelchair with nuclear engineering technician. --15:32 12/27/20 Baron Saucedo R.N.DISPOSITION / DISCHARGE 16:12/27/20. Departure time: 16:12/27/2020. Condition at departure: improved and stable. The goals identified in the patient's plan of care were met. Fall risk assessment completed. No risk factors identified. No learning barriers present. Discharge instructions provided and reviewed with the patient. Reviewed warnings. Reviewed medication(s). Treatments reviewed. Reviewed referrals. Patient verbalized understanding. Written instructions provided in Yi. The patient was discharged by the physician activity assistant. She was discharged home and accompanied by tree climber. She left ambulatory and via private vehicle. Retail Banker driving. --16:09 12/27/20 Baron Saucedo R.N. 4 Clinical Report - Nurses [facility] Emergency Department [address] [place] [address] Phone #: ext- [phone] 12/27/2020 13:34 Patient: SAHARA LORD Sex: F : 1995 Age: 25y 16:08 12/27/20. BP: 129/89. MAP: 102. HR: 89. RR: 16. O2 saturation: 97%. Temp: 97.9 F. Pain level now: 11/21. --16:09 6/15/21 Baron Saucedo R.N.Locked/Released at 12/27/2020 16:14 by Baron Saucedo R.N. Name Value Range Interpretation Code Description Data Nguyen rce(s) Supporting Document(s) ID Date Data Source [id number] 12/27/2020 01:36:00 PM EDT [facility] 1 Clinical Report - Physicians/Mid Levels [facility] Emergency Department [address] [place] [address] Phone #: ext- [phone] 12/27/2020 13:34 Patient: SAHARA LORD Sex: F : 1995 Age: 25y Time Seen: 14:00 12/27/2020. Arrived- By private vehicle. Historian- patient and spouse.HISTORY OF PRESENT ILLNESS Chief Complaint: LOWER EXTREMITY PAIN and SWELLING and ; PAIN and SWELLING IN THE RIGHT KNEE, RIGHT LEG and RIGHT ANKLE. This started today started this AM when pt woke up and is still present (pt was seen at [facility] and sent here to r/o DVT). Severity is described as being moderate. The quality is noted to be aching and "pain". Symptoms located in the area of the right ankle, right knee and right leg. The patient has had swelling, but not had redness. She has had difficulty walking. No bladder dysfunction, bowel dysfunction, sensory loss or motor loss. Patient notes the possibility of an injury. Similar symptoms previously. Recent medical care: The patient was seen recently at another facility in a clinic.REVIEW OF SYSTEMSLast normal menstrual period- , neg. test last week at OB. No cough, chest pain,difficulty breathing, fever or skin rash. No enlarged lymph nodes, neck pain, headache, blurred vision orsore throat. No abdominal pain, vomiting, diarrhea, black stools or difficulty with urination. No bloodystools. The patient has had back pain.PAST HISTORYChronic back pain. Problems: DDD. Abdominal Pain. Multiple ovarian cysts, last one in JUN. Multiple miscarriages. Irregular Periods. Hypertension. Anxiety Reaction. Hypothyroidism. Depression. Gastroesophageal Reflux Disease. Scoliosis. Mal tional Surgeries: Appendectomy. Skin grafting. 2 Clinical Report - Physicians/[facility] Emergency Department [address] [place] [address] Phone #: ext- [phone] 12/27/2020 13:34 Patient: SAHARA LORD Sex: F : 1995 Age: 25y Medications: traZODone HCl Oral (Tablet 100 mg), daily. Baclofen Oral (Tablet 10 mg), 2x a day as needed. Omeprazole Oral (Tablet Delayed Release 20 mg), daily. Meloxicam Oral (Tablet Disintegrating 15 mg), daily. Levothyroxine Sodium Oral 100 mcg, daily. Allergies: No Known Drug Allergy.SOCIAL HISTORYNever smoker. Occasional alcohol use. No drug use.PHYSICAL EXAMVital Signs: 12/27/2020 13:46 BP: 133/98. MAP: 109. HR: 97. RR: 18. O2 saturation: 98%. Temp: 98 F.Pain level now: 10/10. Have been reviewed as abnormal. Hypertensive. Oxygen saturation normal.Appearance: Alert. Oriented X3. No acute distress.Eyes: Pupils equal, round and reactive to light. Eyes normal inspection.ENT: Ears normal. Nose normal. Pharynx normal.Neck: Normal inspection.CVS: Normal heart rate and rhythm.Respiratory: No respiratory distress.Abdomen: Nontender.Back: Normal inspection. No tenderness. ROM normal.Skin: Skin intact. Skin warm and dry. Normal skin color. Normal skin turgor.Extremities: Right leg: moderate tenderness located in the anterior aspect of upper, mid and lower leg.Limited weight bearing secondary to pain. Neurovascular intact distally. Right ankle: moderate tendernessand mild swelling localized to the anterior ankle, lateral malleolus, medial malleolus and dorsolateral foot.Limited ROM secondary to pain. Small joint effusion present. Neurovascular intact distally. No ligamentouslaxity present.Neuro: Oriented X 3.LABS, X-RAYS, AND EKGLower Extremity Sonography: Negative exam on the right side. No compression abnormality noted.Visualized common femoral artery and common femoral vein, superficial femoral artery and superficialfemoral vein, deep femoral artery and deep femoral vein and popliteal artery and popliteal vein. Vesselspatent. Augmented flow present with calf compression. Neg DVT. The exam was performed by atechnician. The study was interpreted by the radiologist and contemporaneously by me. Interpretationtime: 15:59 12/27/2020.Laboratory Tests: Laboratory tests have been ordered, with results reviewed and considered in themedical decision making process. CBC w Diff: (KRISSY: 12/27/2020 14:27) ( MsgRcvd 12/27/2020 14:38) Final results Test Result Flag Units (Reference) CBC W/AUTOMATED DIFF 3 Clinical Report - Physicians/Mid Levels [facility] Emergency Department [address] [place] [address] Phone #: ext- [phone] 12/27/2020 13:34 Patient: SAHARA LORD Sex: F : 1995 Age: 25y COMPLETE BLOOD COUNT WBC 8.0 10/uL (4.2 - 11.0) RBC 4.57 10/uL (4.20 - 5.40) HEMOGLOBIN 11.3 L g/dL (12.0 - 16.0) HEMATOCRIT 36.8 L % (37.0 - 47.0) MCV 80.5 L fL (81.0 - 101) MCH 24.7 L pg (27.0 - 34.0) MCHC 30.7 L g/dL (31.0 - 36.0) RDW 16.2 H % (11.5 - 14.5) PLATELETS 327 10/uL (150 - 450) MPV 9.5 fL (7.4 - 10.4) NEUT 63.2 % (37.0 - 80.0) LYMPH 26.6 % (25.0 - 40.0) MONO 6.5 % (3.0 - 8.0) EOS 2.3 % (0.0 - 7.0) BASO 0.5 % (0.0 - 2.5) %IG 0.9 H % (0.0 - 0.0) %NRBC 0.0 % (0.0 - 0.0) #NEUT 5.04 10/uL (2.00 - 6.90) #LYMPH 2.12 10/uL (0.60 - 3.40) #MONO 0.52 10/uL (0.00 - 0.90) #EOS 0.18 10/uL (0.00 - 0.70) #BASO 0.04 10/uL (0.00 - 0.20) #IG 0.07 10/uL (0.00 - 0.10) #NRBC 0.00 10/uL (0.00 - 0.00) MANUAL DIFF NOT INDICATED RBC MORPH NOT INDICATEDCMP: (KRISSY: 12/27/2020 14:27) ( MsgRcvd 12/27/2020 14:55) Final results Test Result Flag Units (Reference) COMPREHENSIVE METABOLIC PANEL COMPREHENSIVE METABOLIC PANEL SODIUM 140 mEq/L (134 - 153) POTASSIUM 4.1 mEq/L (3.6 - 5.0) CHLORIDE 105 mEq/L (98 - 107) CO2 27 MEQ/L (22 - 30) GLUCOSE 114 H MG/DL (70 - 99) BUN 7 MG/DL (7 - 21) CREATININE 0.7 MG/DL (0.7 - 1.5) BUN/CREAT 10 (8 - 27) TOTAL PROTEIN 6.9 G/DL (6.3 - 8.2) ALBUMIN 4.6 G/DL (3.9 - 5.0) GLOBULIN 2.3 L GM/DL (2.4 - 3.2) A/G RATIO 2.0 (0.8 - 2.0) CALCIUM 9.2 MG/DL (8.4 - 10.2) TOTAL BILI <0.7 MG/DL (0.2 - 1.3) ALKALINE PHOS 101 U/L (38 - 126) SGOT/AST 32 U/L (5 - 40) SGPT/ALT 40 U/L (7 - 56) ANION GAP 8.0 mmol/L (8.0 - 16.0) AGE 25 yrs NON-AA GFR >60 mL/min AFR AMER GFR >60 mL/min Male GFR Interprentation 20-49 yrs >60 mL/min Fcujav46-26 yrs >56 mL/min Normal 60-69 yrs >49 mL/min Normal 70-79yrs>42 mL/min Normal 80 and above >35 mL/min Normal Female GFRInterpretation 20-39 yrs >60 mL/min Normal 40-49 yrs >58 mL/minNormal 50-59 yrs >51 mL/min Normal 60-69 yrs >45 mL/min Nenslj88-37 yrs >39 mL/min Normal 80 and above >32 mL/min Normal 4 Clinical Report - Physicians/Mid Levels [facility] Emergency Department [address] [place] [address] Phone #: ext- [phone] 12/27/2020 13:34 Patient: SAHARA LORD Sex: F : 1995 Age: 25y PT/PTT: (KRISSY: 12/27/2020 14:27) ( MsgRcvd 12/27/2020 14:47) Final results Test Result Flag Units (Reference) PROTIME 13.5 SECONDS (11.0 - 15.5) INR 1.02 (0.93 - 1.23) PTT 28.5 SECONDS (24.8 - 36.7) \\BLDo\\INR INTERPRETATION\\BLDx\\ Therapeutic range for Coumadin and related oral anticoagulants. -International Normalized Ratio (INR): 2.0 - 3.0 for Venous Thrombosis, Pulmonary Embolus, Tissue heart valves, Acute RI Atrial Fibrillation, Valvular heart disease and recurrent Systemic Embolism. - International Normalized Ratio (INR): 2.5 - 3.5 for Mechanical Prosthetic valve. Lactic Acid: (KRISSY: 12/27/2020 14:27) ( [facility] [place] 12/27/[place] 14:50) Final results Test Result Flag Units (Reference) LACTIC ACID 1.7 MMOL/L (0.2 - 2.2) Sed. Rate: (KRISSY: 12/27/2020 14:27) ( [facility] 12/27/[facility] 15:15) Final results Test Result Flag Units (Reference) SED RATE 10 mm/hr (0 - 20) SED RATE REENTER 10 CRP: (KRISSY: 12/27/2020 14:27) ( [facility] [place] 12/27/2020 14:53) Final results Test Result Flag Units (Reference) CRP-HS 2.87 MG/L (1.00 - 3.00) CDC/AHS HS-CRP CUT-OFF: RELATIVE RISK: <1.0 mg/L Low 1.0 - 3.0 mg/L Average >3.0 mg/L High Optimally, the average of HS-CRP results repeated two weeks apart should be used for risk assessment. US Lower Ext Venous Right: (KRISSY: 12/27/2020 14:18) ( [facility] 12/27/2020 15:27) In Progress US DOPPLER UNI VENOUS LEG RT Reason(s): Pain, Limb TRANSPORTATION: WC IV? O2? Oxygen?(No) Room: ED.PROGRESS AND PROCEDURESCourse of Care: 15:59 Dec 27 2020. Evaluation after observation. (Discussed exam findings, pt feelsthere is swelling and discoloration of left hip, thigh, leg, and ankle, on exam legs appear equal in size andcolor bilaterally. Pt needs to follow up with Orthopedics, neg. DVT on US and I feel pain is related toongoing LBP.). Patient counseled in person regarding the patient's stable condition, test results, diagnosis and need for follow-up. Patient agrees with plan of care. 16:01 Dec 132020. Disposition: Discharged home in good and improved condition (16:Dec 27 2020). 5 Clinical Report - Physicians/Mid Levels [facility] Emergency Department [address] [place] [address] Phone #: ext- [phone] 12/27/2020 13:34 - Patient: SAHARA LORD Sex: F : 1995 Age: 25yCLINICAL IMPRESSION Acute right hip, thigh, knee, calf and ankle pain.INSTRUCTIONS Warnings: Further evaluation is necessary. It is very important to follow up with a healthcare provider. GENERAL WARNINGS: Return or contact your physician immediately if your condition worsens or changes unexpectedly, if not improving as expected, or if other problems arise. Spec ifically return if pain worsens. Your Current Medications: Your current home medications have been reviewed. CONTINUE TAKING THE FOLLOWING MEDICATIONS: Baclofen Oral : Tablet 10 mg, 2x a day, prn. Levothyroxine Sodium Oral : 100 mcg daily. Meloxicam Oral : Tablet Disintegrating 15 mg, daily. Omeprazole Oral : Tablet Delayed Release 20 mg, daily. traZODone HCl Oral : Tablet 100 mg, daily. Understanding of the discharge instructions verbalized by patient. Follow-up with: [facility], , , [address] [place] [address], [id number] Follow up tomorrow. Call for the next available appointment. Reason for referral: evaluation and treatment. Summary of care provided to patient.(Electronically signed by JORGE Martinez 12/27/2020 23:38) Name Value Range Interpretation Code Description Data Nguyen rce(s) Supporting Document(s) ID Date Data Source [id number] 12/27/2020 03:14:00 PM EDT [facility] Name Value Range Interpretation Code Description Data Nguyen rce(s) Supporting Document(s) Erythrocyte sedimentation rate by Westergren method 10 mm/hr 0 - 20 [facility] SED RATE REENTER 10 [facility] ID Date Data Source [id number] 12/27/2020 02:55:00 PM EDT [facility] Name Value Range Interpretation Code Description Data Nguyen rce(s) Supporting Document(s) COMPREHENSIVE METABOLIC PANEL [facility] COMPREHENSIVE METABOLIC PANEL Sodium [Moles/volume] in Serum or Plasma 140 mEq/L 134 - 153 [facility] Potassium [Moles/volume] in Serum or Plasma 4.1 mEq/L 3.6 - 5.0 [facility] Chloride [Moles/volume] in Serum or Plasma 105 mEq/L 98 - 107 [facility] Carbon dioxide, total [Moles/volume] in Serum or Plasma 27 MEQ/L 22 - 30 [facility] Glucose [Mass/volume] in Serum or Plasma 114 MG/DL 70 - 99 H [facility] BUN 7 MG/DL 7 - 21 [facility] al Creatinine [Mass/volume] in Serum or Plasma 0.7 MG/DL 0.7 - 1.5 [facility] BUN/CREAT 10 8 - 27 [facility] al Protein [Mass/volume] in Serum or Plasma 6.9 G/DL 6.3 - 8.2 [facility] Albumin [Mass/volume] in Serum or Plasma 4.6 G/DL 3.9 - 5.0 [facility] Globulin [Mass/volume] in Serum by calculation 2.3 GM/DL 2.4 - 3.2 L [facility] A/G RATIO 2.0 0.8 - 2.0 [facility] Calcium [Mass/volume] in Serum or Plasma 9.2 MG/DL 8.4 - 10.2 [facility] Bilirubin.total [Mass/volume] in Serum or Plasma <0.7 MG/DL 0.2 - 1.3 [facility] Alkaline phosphatase [Enzymatic activity/volume] in Serum or Plasma 101 U/L 38 - 126 [facility] Aspartate aminotransferase [Enzymatic activity/volume] in Serum or Plasma 32 U/L 5 - 40 [facility] Alanine aminotransferase [Enzymatic activity/volume] in Seru m or Plasma 40 U/L 7 - 56 [facility] Anion gap 3 in Serum or Plasma 8.0 mmol/L 8.0 - 16.0 [facility] AGE [address] [facility] NON-AA GFR >60 mL/min [facility] AFR AMER GFR >60 mL/min [facility] Male GFR In terprentation 20-49 yrs >60 mL/min Normal 50-59 yrs >56 mL/min Normal 60-69 yrs >49 mL/min Normal 70-79yrs >42 mL/min Normal 80 and above >35 mL/min Normal Female GFR Interpretation 20-39 yrs >60 mL/min Normal 40-49 yrs >58 mL/min Normal 50-59 yrs >51 mL/min Normal 60-69 yrs >45 mL/min Normal 70-79 yrs >39 mL/min Normal 80 and above >32 mL/min Normal ID Date Data Source [id number] 12/27/2020 02:53:00 PM EDT [facility] Name Value Range Interpretation Code Description Data Nguyen rce(s) Supporting Document(s) C reactive protein [Mass/volume] in Serum or Plasma by High sensitivity method 2.87 MG/L 1.00 - 3.00 [facility] CDC/[facility] HS-CRP CUT-OFF: RELATIVE RISK: <1.0 mg/L Low 1.0 - 3.0 mg/L Average >3.0 mg/L High Optimally, the average of HS-CRP results repeated two weeks apart should be used for risk assessment. ID Date Data Source [id number] 12/27/2020 02:50:00 PM EDT [facility] Name Value Range Interpretation Code Description Data Nguyen rce(s) Supporting Document(s) Lactate [Moles/volume] in Serum or Plasma 1.7 MMOL/L 0.2 - 2.2 [facility] ID Date Data Source [id number] 12/27/2020 02:47:00 PM EDT [facility] Name Value Range Interpretation Code Description Data Nguyen rce(s) Supporting Document(s) Prothrombin time (PT) 13.5 SECONDS 11.0 - 15.5 [facility] INR in Platelet poor plasma by Coagulation assay 1.02 0.93 - 1. 23 [facility] aPTT in Blood by Coagulation assay 28.5 SECONDS 24.8 - 36.7 [facility] \\BLDo\\INR INTERPRETATION\\BLDx\\ Therapeutic range for Coumadin and related oral anticoagulants. - International Normalized Ratio (INR): 2.0 - 3.0 for Venous Thrombosis, Pulmonary Embolus, Tissue heart valves, Acute RI Atrial Fibrillation, Valvular heart disease and recurrent Systemic Embolism. - International Normalized Ratio (INR): 2.5 - 3.5 for Mechanical Prosthetic valve. ID Date Data Source [id number] 12/27/2020 02:38:00 PM EDT [facility] Name Value Range Interpretation Code Description Data Nguyen rce(s) Supporting Document(s) CBC W/AUTOMATED DIFF [facility] COMPLETE BLOOD COUNT Leukocytes [#/volume] in Blood by Automated count 8.0 10^3/uL 4.2 - 1 1.0 [facility] Erythrocytes [#/volume] in Blood by Automated count 4.57 10^6/uL 4. 20 - 5.40 [facility] Hemoglobin [Mass/volume] in Blood 11.3 g/dL 12.0 - 16.0 L [facility] Hematocrit [Volume Fraction] of Blood by Automated count 36.8 % 3 7.0 - 47.0 L [facility] Erythrocyte mean corpuscular volume [Entitic volume] by Auto mated count 80.5 fL 81.0 - 101 L [facility] Erythrocyte mean corpuscular hemoglobin [Entitic mass] by Automated count 24.7 pg 27.0 - 34.0 L [facility] Erythrocyte mean corpuscular hemoglobin concentration [Mass/volume] by Automated count 30.7 g/dL 31.0 - 36.0 L [facility] Erythrocyte distribution width [Ratio] by Automated count 16.2 % 11.5 - 14.5 H [facility] Platelets [#/volume] in Blood by Automated count 327 10^3/uL 150 - 45 0 [facility] Platelet mean volume [Entitic volume] in Blood by Automated count 9.5 fL 7.4 - 10.4 [facility] Neutrophils/100 leukocytes in Blood by Automated count 63.2 % 37. 0 - 80.0 [facility] Lymphocytes/100 leukocytes in Blood by Manual count 26.6 % 25.0 - 40.0 [facility] Monocytes/100 leukocytes in Blood by Automated count 6.5 % 3.0 - 8.0 [facility] Eosinophils/100 leukocytes in Blood by Automated count 2.3 % 0.0 - 7.0 [facility] Basophils/100 leukocytes in Blood by Automated count 0.5 % 0.0 - 2.5 [facility] %IG 0.9 % 0.0 - 0.[address] [facility] %NR[facility] 0.0 [facility] [#/volume] in Blood by Automated count 5.04 10^3/uL 2.00 - 6.90 [facility] Lymphocytes [#/volume] in Blood by Automated count 2.12 10^3/uL 0.60 - 3.40 [facility] Monocytes [#/volume] in Blood by Automated count 0.52 10^3/uL 0.00 - 0.90 [facility] Eosinophils [#/volume] in Blood by Automated count 0.18 10^3/uL 0.00 - 0.70 [facility] Basophils [#/volume] in Blood by Automated count 0.04 10^3/uL 0.00 - 0.20 [facility] #IG 0.07 10^3/uL 0.00 - 0.10 [facility] #NRBC 0.00 10^3/uL 0.00 - 0.00 [facility] MANUAL DIFF NOT INDICATED [facility] RBC MORPH NOT INDICATED [facility] ID Date Data Source [id number] 06/06/2020 10:30:00 AM MARQUES [facility]) Name Value Range Interpretation Code Description Data Nguyen rce(s) Supporting Document(s) Hemoglobin A1c/Hemoglobin.total in Blood 5.5 % Hemoglobin a1C ISABELLA ([facility]) estimated average glucose 111 mg/dL 60-110 Above high norm al Estimated Average Glucose [facility]) ID Date Data Source [id number] 06/06/2020 10:30:00 AM EST [facility]) Name Value Range Interpretation Code Description Data Nguyen rce(s) Supporting Document(s) total 25(oh) vitamin D 15.9 NG/mL 30.0-100.0 Below low normal T otal 25(Oh) Vitamin D ISABELLA ([facility]) ID Date Data Source [id number] 06/06/2020 10:30:00 AM EST KEIAR ([facility]) Name Value Range Interpretation Code Description Data Nguyen rce(s) Supporting Document(s) thyroid stimulating hormone 8.920 uIU/mL 0.358-3.740 Above high no rmal Thyroid Stimulating Hormone KEIRA ([facility]) free T4 0.93 NG/dL 0.76-1.46 Free T4 ISABELLA ([facility]) ID Date Data Source [id number] 06/06/2020 10:30:00 AM EST ISABELLA ([facility]) Name Value Range Interpretation Code Description Data Nguyen rce(s) Supporting Document(s) triglycerides level 236 mg/dL <150 Above high normal Triglycer ides Level KEIRA ([facility]) cholesterol level 159 mg/dL <200 Cholesterol Level KEIRA ([facility]) Cholesterol in LDL [Mass/volume] in Serum or Plasma 85 mg/dL <1 00 LDL Cholesterol KEIRA ([facility]) HDL cholesterol 27 mg/dL >40 Below low normal HDL Cholestero l KEIRA ([facility]) cholesterol risk ratio <5 Above high normal Choles terol Risk Ratio KEIRA ([facility]) non-HDL-C 132 mg/dL Non-hdl-c KEIRA ([facility]) ID Date Data Source [id number] 06/06/2020 10:30:00 AM EST KEIRA ([facility]) Name Value Range Interpretation Code Description Data Nguyen rce(s) Supporting Document(s) glucose, fasting 102 mg/dL 70-100 Above high normal Glucose, Fas ting KEIRA ([facility]) blood urea nitrogen 8 mg/dL 7-18 Blood Urea Nitro gen KEIRA ([facility]) sodium level 140 mEq/L 136-145 Sodium Level KEIRA ([facility]) potassium serum 4.0 mEq/L 3.5-5.1 Potassium Serum ATHE NA ([facility]) creatinine for GFR 0.71 mg/dL 0.55-1.30 Creatinine for GF R KEIRA ([facility]) glomerular filtration rate > 60.0 >60 Glomerula r Filtration Rate KEIRA ([facility]) chloride level 109 mEq/L 98-107 Above high normal Chloride Level KEIRA ([facility]) carbon dioxide level 27 mEq/L 21-32 Carbon Dioxide Level KEIRA ([facility]) anion gap 4 mEq/L 8-16 Below low normal Anion Gap KEIRA ( [facility]) AST/SGOT 23 U/L 7-37 AST/SGOT KEIRA ([facility]) calcium level 9.4 mg/dL 8.5-10.1 Calcium Level KEIRA ( [facility]) ALT/SGPT 50 U/L 12-78 ALT/SGPT KEIRA ([facility]) bilirubin,total 0.4 mg/dL 0.2-1.0 Bilirubin,total ATHE NA ([facility]) alkaline phosphatase 93 U/L 45-117 Alkaline Phosph atase KEIRA ([facility]) albumin 3.9 gm/dL 3.2-5.2 Albumin KEIRA ([facility]) albumin/globulin ratio 1.2-2.2 Below low normal Albumin /globulin Ratio KEIRA ([facility]) total protein 7.3 gm/dL 6.4-8.2 Total Protein KEIRA ( [facility]) ID Date Data Source [id number] 06/06/2020 10:30:00 AM EST KEIRA ([facility]) Name Value Range Interpretation Code Description Data Nguyen rce(s) Supporting Document(s) red blood count 4.80 10 4.00-5.40 Red Blood Count ATHE ([facility]) white blood count 8.4 10 4.0-10.0 White Blood Count KEIRA ([facility]) mean corpuscular volume 82.3 fL 80.0-96.0 Mean Corpusc ular Volume KEIRA ([facility]) hematocrit 39.5 % 36.0-47.0 Hematocrit KEIRA ([facility]) hemoglobin 12.8 g/dL 12.0-15.5 Hemoglobin KEIRA ([facility]) platelet count, automated 312 10 150-450 Platelet C ount, Automated KEIRA ([facility]) red cell distribution width 15.2 % 11.5-14.5 Above high no rmal Red Cell Distribution Width KEIRA ([facility]) mean corpuscular hemoglobin 26.7 pg 27.0-33.0 Below low nor mal Mean Corpuscular Hemoglobin KEIRA ([facility]) mean corpuscular HGB conc 32.4 g/dL 32.0-36.5 Mean Corpu scular HGB Conc KEIRA ([facility]) mono % 7.5 % 0.0-5.0 Above high normal Nicholas % KEIRA ([facility]) neutrophils % 65.1 % 36.0-66.0 Neutrophils % KEIRA ( [facility]) lymph % 23.4 % 24.0-44.0 Below low normal Lymph % KEIRA ( [facility]) eos % 2.1 % 0.0-3.0 Eos % KEIRA ([facility]) baso % 0.6 % 0.0-1.0 Baso % KEIRA ([facility]) immature granulocyte % 1.3 % 0-3.0 Immature Gran ulocyte % KEIRA ([facility]) neutrophils # 5.5 10 1.5-8.5 Neutrophils # KEIRA ( [facility]) nucleated red blood cell % 0.0 % 0-0 Nucleated Red Blood Cell % KEIRA ([facility]) lymph # 2.0 10 1.5-5.0 Lymph # KEIRA ([facility]) mono # 0.6 10 0.0-0.8 Nicholas # KEIRA ([facility]) eos # 0.2 10 0.0-0.5 Eos # KEIRA ([facility]) baso # 0.1 10 0.0-0.2 Baso # KEIRA ([facility]) ID Date Data Source [id number] 06/06/2020 10:30:00 AM EST KEIRA ([facility]) Name Value Range Interpretation Code Description Data Nguyen rce(s) Supporting Document(s) Hemoglobin A1c/Hemoglobin.total in Blood 5.5 % Hemoglobin a1C KEIRA ([facility]) estimated average glucose 111 mg/dL 60-110 Above high norm al Estimated Average Glucose KEIRA ([facility]) ID Date Data Source [id number] 06/06/2020 10:30:00 AM EST KEIRA ([facility]) Name Value Range Interpretation Code Description Data Nguyen rce(s) Supporting Document(s) total 25(oh) vitamin D 15.9 NG/mL 30.0-100.0 Below low normal T otal 25(Oh) Vitamin D KEIRA ([facility]) ID Date Data Source [id number] 06/06/2020 10:30:00 AM EST KEIRA ([facility]) Name Value Range Interpretation Code Description Data Nguyen rce(s) Supporting Document(s) thyroid stimulating hormone 8.920 uIU/mL 0.358-3.740 Above high no rmal Thyroid Stimulating Hormone KEIRA ([facility]) free T4 0.93 NG/dL 0.76-1.46 Free T4 KEIRA ([facility]) ID Date Data Source [id number] 06/06/2020 10:30:00 AM EST KEIRA ([facility]) Name Value Range Interpretation Code Description Data Nguyen rce(s) Supporting Document(s) cholesterol level 159 mg/dL <200 Cholesterol Level KEIRA ([facility]) triglycerides level 236 mg/dL <150 Above high normal Triglycer ides Level KEIRA ([facility]) HDL cholesterol 27 mg/dL >40 Below low normal HDL Cholestero l KEIRA ([facility]) Cholesterol in LDL [Mass/volume] in Serum or Plasma 85 mg/dL <1 00 LDL Cholesterol KEIRA ([facility]) cholesterol risk ratio <5 Above high normal Choles terol Risk Ratio KEIRA ([facility]) non-HDL-C 132 mg/dL Non-hdl-c KEIRA ([facility]) ID Date Data Source [id number] 06/06/2020 10:30:00 AM EST KEIRA ([facility]) Name Value Range Interpretation Code Description Data Nguyen rce(s) Supporting Document(s) glucose, fasting 102 mg/dL 70-100 Above high normal Glucose, Fas ting KEIRA ([facility]) blood urea nitrogen 8 mg/dL 7-18 Blood Urea Nitro gen KEIRA ([facility]) sodium level 140 mEq/L 136-145 Sodium Level KEIRA (No [facility]) glomerular filtration rate > 60.0 >60 Glomerula r Filtration Rate KEIRA ([facility]) creatinine for GFR 0.71 mg/dL 0.55-1.30 Creatinine for GF R KEIRA ([facility]) potassium serum 4.0 mEq/L 3.5-5.1 Potassium Serum ATHE NA ([facility]) anion gap 4 mEq/L 8-16 Below low normal Anion Gap KEIRA ( [facility]) carbon dioxide level 27 mEq/L 21-32 Carbon Dioxide Level KEIRA ([facility]) calcium level 9.4 mg/dL 8.5-10.1 Calcium Level KEIRA ( [facility]) chloride level 109 mEq/L 98-107 Above high normal Chloride Level KEIRA ([facility]) ALT/SGPT 50 U/L 12-78 ALT/SGPT KEIRA ([facility]) alkaline phosphatase 93 U/L 45-117 Alkaline Phosph atase KEIRA ([facility]) bilirubin,total 0.4 mg/dL 0.2-1.0 Bilirubin,total ATHE NA ([facility]) AST/SGOT 23 U/L 7-37 AST/SGOT KEIRA ([facility]) total protein 7.3 gm/dL 6.4-8.2 Total Protein KEIRA ( [facility]) albumin 3.9 gm/dL 3.2-5.2 Albumin KEIRA ([facility]) albumin/globulin ratio 1.2-2.2 Below low normal Albumin /globulin Ratio KEIRA ([facility]) ID Date Data Source [id number] 06/06/2020 10:30:00 AM EST KEIRA ([facility]) Name Value Range Interpretation Code Description Data Nguyen rce(s) Supporting Document(s) white blood count 8.4 10 4.0-10.0 White Blood Count KEIRA ([facility] [facility]) red blood count 4.80 10 4.00-5.40 Red Blood Count ATHE ([facility]) hemoglobin 12.8 g/dL 12.0-15.5 Hemoglobin KEIRA ([facility]) hematocrit 39.5 % 36.0-47.0 Hematocrit KEIRA ([facility]) mean corpuscular volume 82.3 fL 80.0-96.0 Mean Corpusc ular Volume KEIRA ([facility]) mean corpuscular hemoglobin 26.7 pg 27.0-33.0 Below low nor mal Mean Corpuscular Hemoglobin KEIRA ([facility]) mean corpuscular HGB conc 32.4 g/dL 32.0-36.5 Mean Corpu scular HGB Conc KEIRA ([facility]) platelet count, automated 312 10 150-450 Platelet C ount, Automated KEIRA ([facility]) red cell distribution width 15.2 % 11.5-14.5 Above high no rmal Red Cell Distribution Width KEIRA ([facility]) mono % 7.5 % 0.0-5.0 Above high normal Nicholas % KEIRA ([facility]) lymph % 23.4 % 24.0-44.0 Below low normal Lymph % KEIRA ( [facility]) neutrophils % 65.1 % 36.0-66.0 Neutrophils % KEIRA ( [facility]) eos % 2.1 % 0.0-3.0 Eos % KEIRA ([facility]) nucleated red blood cell % 0.0 % 0-0 Nucleated Red Blood Cell % KEIRA ([facility]) baso % 0.6 % 0.0-1.0 Baso % KEIRA ([facility]) immature granulocyte % 1.3 % 0-3.0 Immature Gran ulocyte % ISABELLA ([facility]) neutrophils # 5.5 10 1.5-8.5 Neutrophils # ISABELLA ( [facility]) lymph # 2.0 10 1.5-5.0 Lymph # ISABELLA ([facility]) mono # 0.6 10 0.0-0.8 Nicholas # KEIRA ([facility]) eos # 0.2 10 0.0-0.5 Eos # KEIRA ([facility]) baso # 0.1 10 0.0-0.2 Baso # ISABELLA ([facility]) Procedure Social History Code Duration Value Status Description Data Source(s ) Smoking 12/20/2020 12:00:00 AM EDT Former Smoker completed Former Smoker [facility] ([facility]) Smoking 11/21/2020 12:00:00 AM EDT Current Smoker completed Curre nt Smoker eC ([facility]) Smoking 10/27/2020 12:00:00 AM EDT Current Smoker completed Curre nt Smoker [facility] ([facility]) Smoking 06/21/2020 12:00:00 AM EST Patient is a former smoker completed Patient is a former smoker NICA ([facility] ) Vital Signs ID Date Data Source UNK Name Value Range Interpretation Code Description Data Source(s) Diastolic blood pressure 92 mm[Hg] 92 mm[Hg] KEIRA ([facility]) Body height 66 [in_i] 66 [in_i] KEIRA ([facility]) Body mass index (BMI) [Ratio] 52.4 kg/m2 52.4 k g/m2 KEIRA ([facility]) Systolic blood pressure 152 mm[Hg] 152 mm[Hg] A THENA ([facility]) Body weight 5190.4 [oz_av] 5190.4 [oz_av] ATHEN A ([facility]) Body weight 316 [lb_av] 316 [lb_av] [facility] ([facility]) Body weight 143.34 kg 143.34 kg eCW1 ([facility]) Body height 66 [in_i] 66 [in_i] eCW1 ([facility]) Body mass index (BMI) [Ratio] 51 kg/m2 51 kg/ m2 eCW1 ([facility]) Systolic blood pressure 138 mm[Hg] 138 mm[Hg] e CW1 ([facility]) Diastolic blood pressure 92 mm[Hg] 92 mm[Hg] eCW1 ([facility]) Body weight 315 [lb_av] 315 [lb_av] eCW1 ([facility]) Body height 66 [in_i] 66 [in_i] eCW1 ([facility]) Body mass index (BMI) [Ratio] 50.84 kg/m2 50.84 kg/m2 W1 ([facility]) Body weight 142.88 kg 142.88 kg eCW1 ([facility]) Systolic blood pressure 138 mm[Hg] 138 mm[Hg] e CW1 ([facility]) Diastolic blood pressure 90 mm[Hg] 90 mm[Hg] eCW1 ([facility]) Body weight 318 [lb_av] 318 [lb_av] eCW1 ([facility]) Body weight 144.24 kg 144.24 kg eCW1 ([facility]) Body height 66 [in_i] 66 [in_i] eCW1 ([facility]) Body mass index (BMI) [Ratio] 51.32 kg/m2 51.32 kg/m2 eCW1 ([facility]) Systolic blood pressure 136 mm[Hg] 136 mm[Hg] e CW1 ([facility]) Diastolic blood pressure 90 mm[Hg] 90 mm[Hg] eCW1 ([facility]) Body height 66 [in_i] 66 [in_i] KEIRA ([facility]) Body height 66 [in_i] 66 [in_i] KEIRA ([facility]) Patient Treatment Plan of Care Planned Activity Planned Date Details Description Data Source (s) Polyethylene Glycol 400 4 MG/ML / Propyl lizet glycol 3 MG/ML Ophthalmic Solution [Systane] KEIRA ([facility]) Prednisone 20 MG Oral Tablet KEIRA ([facility]) meloxicam 15 MG Oral Tablet KEIRA ([facility]) Fluoxetine 10 MG Oral Capsule ISABELLA ([facility])
--- OUTSIDE RECORDS SUMMARY | 2021-06-07 04:07 | CCD ---
Author Author [facility] Organization [facility] Address Unknown Phone Unavailable Support Name Relationship Address Phone NEYMAR RONQUILLO Next Of Kin [address] [place] [address] PEREZ, NEYMAR Next Of Kin Unknown Renzo Simpson (Boyfriend) Next Of Kin Alley Lenny - Friend [phone] Cell, Unavailable SONIC Next Of Kin [address] [place] [address] ALLEY DOUGLASS Next Of Kin [address] [place] [address] Chetna Dugan Next Of Kin [address] [place] [address] JERRY [place] [address] NO, CONTACT Next Of Kin [address] [facility] [address] [place] [address] JERRY [place] [address] Beverley Aguillon Next Of Kin [address] [place], [place] [id number] RENZO SIMPSON Next Of Kin [address] [facility] [address] [place] [address] KARLA MATHEW Next Of Kin [address] [place] [address] Unavailable LATA RODRIGUEZ Next Of Kin [address] [facility] [address] [place] [address] ANDREA BYNUM Next Of Kin [address] [address] UE Next Of Kin Unknown Unavailable KRAIG LORD Next Of Kin [address] [place] [address] JERRY LORD Next Of Kin [address] [facility], [address] ODIN MATHEW Next Of Kin [address] [facility], [address] NEYMAR RONQUILLO [address] [address] [place] [address] Unavailable Care Team Providers Care Environmental Restoration Planner Name Role Phone Maring, Byron PA Unavailable [...] MD Unavailable Unavailable CaicedoRiley MD Unavailable Unavailable CaicedoRilye MD Unavailable Unavailable Riley Caicedo MD Unavailable [...] Riley Caicedo MD Unavailable Unavailable Chetna Wakefield ENGINE ROOM OPERATOR ENGINE ROOM OPERATOR Unavailable Unavailable Joanne, Cristina Unavailable Unavailable Joanne, [...] Joanne, Cristina Unavailable Unavailable Ashu, A Chetna ENGINE ROOM OPERATOR Unavailable Unavailable Penfield, A Chetna ENGINE ROOM OPERATOR Unavailable Unavailable Penfield, A Chetna ENGINE ROOM OPERATOR Unavailable Unavailable [place], A Chetna ENGINE ROOM OPERATOR Unavailable Unavailable Penfield, A Chetna ENGINE ROOM OPERATOR Unavailable Unavailable [place]field, A Chetna ENGINE ROOM OPERATOR Unavailable Unavailable Penfield, A Chetna ENGINE ROOM OPERATOR Unavailable Unavailable Penfield, A Chetna ENGINE ROOM OPERATOR Unavailable Unavailable Penfield, A Chetna ENGINE ROOM OPERATOR Unavailable Unavailable Penfield, A Chetna ENGINE ROOM OPERATOR Unavailable Unavailable Penfield, A Chetna ENGINE ROOM OPERATOR Unavailable Unavailable Penfield, A Chetna ENGINE ROOM OPERATOR Unavailable Unavailable Penfield, A Chetna ENGINE ROOM OPERATOR Unavailable Unavailable Penfield, A Chetna ENGINE ROOM OPERATOR Unavailable Unavailable Penfield, A Chetna ENGINE ROOM OPERATOR Unavailable Unavailable Penfield, A Chetna ENGINE ROOM OPERATOR Unavailable Unavailable Penfield, A Chetna ENGINE ROOM OPERATOR Unavailable Unavailable Penfield, A Chetna ENGINE ROOM OPERATOR Unavailable Unavailable Penfield, A Chetna ENGINE ROOM OPERATOR Unavailable Unavailable Penfield, A Chetna ENGINE ROOM OPERATOR Unavailable Unavailable Penfield, A Chetna ENGINE ROOM OPERATOR Unavailable Unavailable Penfield, A Chetna ENGINE ROOM OPERATOR Unavailable Unavailable Penfield, A Chetna ENGINE ROOM OPERATOR Unavailable Unavailable Penfield, A Chetna ENGINE ROOM OPERATOR Unavailable Unavailable Penfield, A Chetna ENGINE ROOM OPERATOR Unavailable Unavailable Penfield, A Chetna ENGINE ROOM OPERATOR Unavailable Unavailable Penfield, A Chetna ENGINE ROOM OPERATOR Unavailable Unavailable Penfield, A Chetna ENGINE ROOM OPERATOR Unavailable Unavailable Penfield, A Chetna ENGINE ROOM OPERATOR Unavailable Unavailable Penfield, A Chetna ENGINE ROOM OPERATOR Unavailable Unavailable Penfield, A Chetna ENGINE ROOM OPERATOR Unavailable Unavailable Penfield, A Chetna ENGINE ROOM OPERATOR Unavailable Unavailable Penfield, A Chetna ENGINE ROOM OPERATOR Unavailable Unavailable Penfield, A Chetna ENGINE ROOM OPERATOR Unavailable Unavailable Penfield, A Chetna ENGINE ROOM OPERATOR Unavailable Unavailable Penfield, A Chetna ENGINE ROOM OPERATOR Unavailable Unavailable Penfield, A Chetna ENGINE ROOM OPERATOR Unavailable Unavailable Penfield, A Chetna ENGINE ROOM OPERATOR Unavailable Unavailable Penfield, A Chetna ENGINE ROOM OPERATOR Unavailable Unavailable Ashu, A Chetna ENGINE ROOM OPERATOR Unavailable Unavailable Ashu, A Chetna ENGINE ROOM OPERATOR Unavailable Unavailable Ashu, A Chetna ENGINE ROOM OPERATOR Unavailable Unavailable Ashu, A Chetna ENGINE ROOM OPERATOR Unavailable Unavailable Ashu, A Chetna ENGINE ROOM OPERATOR Unavailable Unavailable Ashu, A Chetna ENGINE ROOM OPERATOR Unavailable Unavailable Ashu, A Chetna ENGINE ROOM OPERATOR Unavailable Unavailable Ashu, A Chetna ENGINE ROOM OPERATOR Unavailable Unavailable Ashu, A Chetna ENGINE ROOM OPERATOR Unavailable Unavailable Ashu, A Chetna ENGINE ROOM OPERATOR Unavailable Unavailable Ashu, A Chetna ENGINE ROOM OPERATOR Unavailable Unavailable Ashu, A Chetna ENGINE ROOM OPERATOR Unavailable Unavailable Ashu, A Chetna ENGINE ROOM OPERATOR Unavailable Unavailable Ashu, A Chetna ENGINE ROOM OPERATOR Unavailable Unavailable Ashu, A Chetna ENGINE ROOM OPERATOR Unavailable Unavailable Ashu, A Chetna ENGINE ROOM OPERATOR Unavailable Unavailable Ashu, A Chetna ENGINE ROOM OPERATOR Unavailable Unavailable Ashu, A Chetna ENGINE ROOM OPERATOR Unavailable Unavailable Ashu, A Chetna ENGINE ROOM OPERATOR Unavailable Unavailable Ashu, A Chetna ENGINE ROOM OPERATOR Unavailable Unavailable Ashu, A Chetna ENGINE ROOM OPERATOR Unavailable Unavailable Ashu, A Chetna ENGINE ROOM OPERATOR Unavailable Unavailable Ashu, A Chetna ENGINE ROOM OPERATOR Unavailable Unavailable Kiara CLEARY MD Unavailable Unavailable [...] is protected by Article 27-F of the [facility] Public Health law. If you continue you may have access to information: Regarding HIV / AIDS; Provided by facilities licensed or operated by the [facility] Office of Mental Health; or Provided by the [facility] Office for People With Developmental Disabilities. If such information is present, then the following [facility] mandated warning applies: This information has been [...] law may result in a fine or senior living sentence or both. A general authorization for the release of medical or other information is NOT sufficient authorization for further disc losure. Allergies and Adverse Reactions Type Description Substance Reaction Status Data Source(s ) Allergy to substance Allergy to substance Allergy to substance [facility] ([facility]) Allergy to substance Allergy to substance Allergy to substance [facility] ([facility]) Family History Family Member Name Family Member Gender Family Member Status Date o f Status Description Data Source(s) Unknown Male Problem [facility] ([facility]) Encounters Encounter Providers Location Date Indications Data Source(s ) Outpatient 04/27/2021 09:17:26 AM EDT - 021 09:38:05 AM EDT [facility] ([facility]) Albina Rubio MD: [address] [place] [phone], Ph. Attender: Albina Rubio [facility] 01/23/2021 12:00:00 AM EDT [facility] ([facility]) Emergency Attender: KATHY CLEARY MDConsultant: Saundra Wakefield ENGINE ROOM OPERATOR 12/27/2020 01:36:00 PM EDT - 12/27/2020 04:09:00 PM EDT [facility] Patient discharged. Outpatient Attender: Byron PATEL 12/28/19 11:12:35 AM EDT - 12/27/2020 12:07:24 PM EDT [facility] ([facility] ) Outpatient [address] [facility] [id number] 12/20/2020 12:00:00 AM EDT eCW1 ([facility]) ([facility] PROC) [facility]Center Procedure [address] [place] [address] 11/21/2020 12:00:00 AM EDT eCW1 ([facility]) Outpatient [address] [facility] [id number] 10/27/2020 12:00:00 AM EDT eCW1 ([facility]) Outpatient Attender: ULICES PATEL Physical Therapy 01/2020 09:00:00 AM EST [facility] ([facility]) Ruddy Caicedo MD: [address] [place] [phone], Ph. Attender: Ruddy Caicedo MD [facility] Medical 06/06/2020 12:00:00 AM EST [facility] ([facility]) Ruddy Caicedo MD: [address] [place] [phone], Ph. Attender: Ruddy Caicedo MD [facility] Medical 06/06/2020 12:00:00 AM EST [facility] ([facility]) Ruddy Caicedo MD: [address] [place] [phone], Ph. Attender: Ruddy Caicedo MD [facility] Medical 06/06/2020 12:00:00 AM MARQUES CROCKETT ([facility]) Outpatient Attender: BERTA Wakefield [facility] 04/08/2020 05:59:00 P M EDT [facility] Outpatient Attender: Chetna Wakefield [facility] 04/07/2020 07:0 4:01 PM EDT [facility] Immunizations Vaccine Date Status Description Data Source(s) COVID-19 VACCINE [facility] 04/08/2021 12:00:00 AM EDT completed MISIIS Vaccine Series Complete: YESThis Data wa s Submitted to [facility]. COVID-19 VACCINE [facility] 03/06/2021 12:00:00 AM EDT completed NYSIIS Vaccine Series Complete: NOThis Data was Submitted to [facility]. Medications Medication Brand Name Start Date Product [...] 06/20/2020 12:00:00 AM EST ORAL active [facility] ([facility]) Fluoxetine 10 MG Oral Capsule fluoxetine 10 mg capsule fluox etine 10 mg capsule completed fluoxetine 10 MG Oral Capsule BATTIEST ([facility]) meloxicam 15 MG Oral Tablet meloxicam 15 mg tablet meloxicam 15 mg ta blet completed meloxicam 15 MG Oral Tablet [facility] ([facility]) Prednisone 20 MG Oral Tablet prednisone 20 mg tablet prednisone 20 mg tablet completed prednisone 20 MG Oral Tablet [facility] ([facility]) Polyethylene Glycol 400 4 MG/ML / Propyl [...] glycol 3 MG/ML Ophthalmic Solution [Systane] [facility] ([facility]) Insurance Providers Payer name Policy type / Coverage type Policy ID Covered alliance party ID Covered alliance party's relationship to kulkarni Policy Kulkarni Plan Information Medicaid [place] Medigap Part B [id number] Family Dependent [id number] Medicaid S [id number] S [id number] Managed Care - [facility] P [id number] S [id number] Medicaid S [id number] S [id number] [facility] [id number] Self [id number] Managed Care - [facility] P [id number] S [id number] Medicaid S [id number] S [id number] [facility] I [id number] Self [id number] [facility] COMMUNITY PLAN MCDO [id number] SP [id number] Managed Care - [facility] Community Plan P [id number] S [id number] Managed Care - [facility] P [id number] S [id number] Medicaid S [id number] S [id number] Managed Care - [facility] Community Plan P [id number] S [id number] [facility] Commercial Insurance Co. [id number] Self [id number] [facility] Commercial Insurance Co. [id number] Self [id number] RPR- Needs Payer Match [id number] Self [id number] [facility] Health Maintenance Organization (HMO) [id number] Self SELF PAY ONLY [id number] SP [id number] O UNAVAILABLE UNAVAILA BLE SELF PAY UNAVAILABLE SP UNAVAILA BLE EXCELLUS BCBS B [id number] S [id number] HMO BLUE [id number] SP [id number] SELF PAY SP UNAVAILABLE S UNAVAILA BLE BLUE [place] PLAN [id number] BLUE [place] PLAN UNAVAILABLE UNAVAILABLE BCBS [facility] BC [id number] S [id number] UN COMMUNITY PLAN MCDO [id number] SP [id number] [facility] COMMUNITY PLAN MCDHMO [id number] SP [id number] [facility] COMMUNITY PLAN XIX [id number] 18 [id number] [place] [id number] SP [id number] C EMEDNY [id number] SP [id number] [facility] Community Plan Commercial [id number] Self [id number] [facility] Community Plan Commercial [id number] Self [id number] MEDICAID [id number] SP [id number] [facility] Community Plan Commercial [id number] Self [id number] [facility] O [id number] S [id number] [facility] Community Plan Commercial [id number] Self [id number] [facility] Community Plan Commercial [id number] Self [id number] [facility] Health Maintenance Organization (HMO) [id number] Self [id number] [facility] Health Maintenance Organization (HMO) [id number] Self [id number] [facility]) O [id number] S [id number] [facility] COMMUNITY PLAN MCDO [id number] SP [id number] Problems, Conditions, and Diagnoses Code Display Name Description Problem Type Effective Dates Data Source(s) E039 Hypothyroidism, unspecified Hypothyroidism, unspecifie d Diagnosis 12/27/2020 01:36:00 PM EDT [facility] I10 Essential (primary) hypertension Essential (primary) h ypertension Diagnosis 12/27/2020 01:36:00 PM EDT [facility] H05950 Pain in right thigh Pain in right thigh Diagnosis 0 12/27/2020 01:36:00 PM EDT [facility] J02705 Pain in right ankle and joints of right foot Pain in right ankle and joints of right foot Diagnosis 12/27/2020 01:36:00 PM EDT [facility] J46327 Pain in right knee Pain in right knee Diagnosis 01:36:00 PM EDT [facility] G15937 Pain in right hip Pain in right hip Diagnosis 12/27/2020 01:36:00 PM EDT [facility] T66928 Pain in right lower leg Pain in right lower leg Diagno sis 12/27/2020 01:36:00 PM EDT [facility] F17.200 [id number] Tobacco use disorder Problem 10/27/2020 12:0 0:00 AM EDT [facility] ([facility]) Z68.43 [id number] Body mass index [BMI] 50.0-59.9, adult Pr oblem 10/27/2020 12:00:00 AM EDT [facility] ([facility]) E66.01 [id number] Morbid (severe) obesity due to excess jemal ories Problem 10/27/2020 12:00:00 AM EDT [facility] ([facility]) N93.9 [id number] Abnormal uterine bleeding (AUB) Problem 10/25/2020 12:00:00 AM EDT [facility] ([facility]) [id number] Clinical finding Clinical Finding Problem 019 12:00:00 AM EDT - 01/23/2021 12:00:00 AM EDT [facility] ([facility]) 483047720 Disorder of head Disorder of Head Problem 017 12:00:00 AM EST - 01/23/2021 12:00:00 AM EDT [facility] ([facility]) 302286141 Finding of menstrual bleeding Finding of Menstrual Ble eding Problem 05/27/2017 12:00:00 AM EST - 01/23/2021 12:00:00 AM EDT [facility]ST ([facility]) 956668562 Finding of sensation of breast Finding of Sensation of Breast Problem 02/26/2017 12:00:00 AM EDT - 01/23/2021 12:00:00 AM EDT KEIR[facility] ([facility]) 523224453 Eye / vision finding Eye / Vision Finding Problem 07/05/2016 12:00:00 AM EST - 01/23/2021 12:00:00 AM EDT [facility] ([facility]) Surgeries/Procedures Procedure Description Date Indications Data Source(s) Physical Therapy Eval - Low Complexity 07/18/2020 12:0 0:00 AM EST [facility] ([facility]) Results ID Date Data Source [id number] 04/27/2021 09:45:00 AM EDT [facility] Name Value Range Interpretation Code Description Data Nguyen rce(s) Supporting Document(s) SARS-CoV-2 RNA Resp Ql YANN+probe NOT DETECTED [facility] This lab was ordered by MAZIN henriquez and reported by MAZIN Macias. ID Date Data Source [id number] 12/28/2020 11:21:00 AM EDT [facility] [address] [place] [address] PHONE: [phone] FAX: [phone] Name .................. : POP Youssef Acct Number.................. : [id number] ROOM. ................. : TR-08 Number ................... : [id number] Stay type ............. : E/R Discharge Date......... ... : 12/27/20 Admit Date ......... : 12/27/20 Admit Phys .................... : MADIHA Date of ....... : 1995 Family Phys ................... : ASHU SOLANO Phone .................. : [phone] Age ................................ : 25 Film# .................. .:[id number] Sex ................................. : F Unsigned transcriptions are preliminary reports and do not represent a medical or legal document [place] [id number] COMPLETE:12/27/20 15:27 CML 74362 Reason(s): Pain, Limb RIGHT LOWER EXTREMITY DUPLEX DOPPLER ULTRASOUND: INDICATION: Pain. FINDINGS: There is normal compressibility of the deep venous system from the external iliac through the popliteal vein with normal augmentation identified. IMPRESSION: No evidence for any underlying DVT. Electronically Reviewed and Signed By Damián Westbrook M.D. , 12/28/20 11:21, [facility] Transcribe Initials: TARA , Transcribe Date: 12/28/20 00:55, Dictation Date: Copy for: JOSE M SANCHEZ via fax Copy for: EMERGENCY DEPT via mode Copy for: 710 MED REC DISCHARGED Page 1 of 1 Name Value Range Interpretation Code Description Data Nguyen rce(s) Supporting Document(s) ID Date Data Source [id number] 12/27/2020 01:36:00 PM EDT [facility] 1 OrderSheet [facility] Emergency Department [address] [place] [address] Phone #: ext- [phone] 12/27/2020 13:34 Patient: [...] Description Priority Entered Acknowledged Initialed 2 OrderSheet [facility] Emergency Department [address] [place] [address] Phone #: ext- [phone] 12/27/2020 13:34 Patient: SAHARA LORD Sex: F : 1995 Age: 25yToradol IM 60 mg 14:18 12/27/2020 14:30 Aki Saucedo R.N.;GENERAL ORDERSOrder Description Priority Entered Acknowledged Initialed[Electronically signed by Baron Saucedo R.N. (16:14 12/27/2020)][Electronically signed by Aki Kidd (23:38 12/27/2020)][Electronically locked by Baron Saucedo R.N. (16:14 12/27/2020)] Name Value Range Interpretation Code Description Data Nguyen rce(s) Supporting Document(s) ID Date Data Source [id number] 12/27/2020 01:36:00 PM EDT [facility] 1 Medication Reconciliation Report [facility] Emergency Department [address] [place] [address] Phone #: ext- [phone] 12/27/2020 13:34 Patient: [...] rce(s) Supporting Document(s) ID Date Data Source [id number] 12/27/2020 01:36:00 PM EDT [facility] 1 Medication Administration Record [facility] Emergency Department [address] [place] [address] Phone #: ext- [phone] 12/27/2020 13:34 Patient: SAHARA LORD Sex: F : 1995 Age: 25yWeight: 163.2 kgHeight/Length: 66 inBMI: 58.1ALLERGIES: No Known Drug Allergy Date/Time Medication Administered Medication OrderedGiven TORADOL [IM] (KETOROLAC Toradol IM 60 mg14:30 12/27/2020 TROMETHAMINE)Baron Saucedo R.N. Dose: 60 mg IM Name Value Range Interpretation Code Description Data Nguyen rce(s) Supporting Document(s) ID Date Data Source [id number] 12/27/2020 01:36:00 PM EDT [facility] 1 General Instructions [facility] Emergency Department [address] [place] [address] Phone #: ext [phone] 12/27/2020 13:34 Patient: SAHARA LORD Sex: F [...] instructions verbalized by patient.Follow-up with: [facility], , , [address] [place] [address], ,[place], [address] Follow up tomorrow. Call for the next [...] shooting down the arm. 2 General Instructions [facility] Emergency Department [address] [place] [address] Phone #: ext- [phone] 12/27/2020 13:34 Patient: [...] any poor work habits. You may use [id number]-[id number] pain medicine to control pain, unless another [...] if you don'trespond to home treatment alone.Call [id number] [phone] if you have: A trigger point in the chest muscles, pain that becomes more severe, lasts longer, or spreads into your shoulder, arm, or jaw Chest pain or discomfort 3 General Instructions [facility] Emergency Department [address] [place] [address] Phone #: ext- [phone] 12/27/2020 13:34 Patient: [...] your pain worsens, regardless of its location [phone] [employer]. [address] [place] [address], [place] [address]. All rights reserved. This information is not intended as asubstitute for professional medical care. Always follow your healthcare professional's instructions. You have been given the following additional information: Myofascial Pain Syndrome(Electronically signed by JORGE Martinez 12/27/2020 23:38) Name Value Range Interpretation Code Description Data Nguyen rce(s) Supporting Document(s) ID Date Data Source [id number] 12/27/2020 01:36:00 PM EDT [facility] 1 Clinical Report - Nurses [facility] Emergency Department [address] [place] [address] Phone #: ext- [phone] 12/27/2020 13:34 Patient: SAHARA LORD Sex: Kelly : 1995 Age: 25yTRIAGEHistorian: patient.Triage time: 13:46 12/27/2020. Acuity: LEVEL 4.Chief Complaint: RIGHT LOWER EXTREMITY PAIN.13:46 12/27/20. Alert. No acute distress.No injury occurred. This started today. Onset. 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 2 Clinical Report - Nurses [facility] Emergency Department [address] [place] [address] Phone #: ext- [phone] 12/27/2020 13:34 [id number] Sex: F : 1995 Age: 25yDepression.Gastroesophageal Reflux Disease.Scoliosis. --13:48 12/27/20 Jammie Tubbs RNHypertension. --13:54 12/27/20 Jammie Tubbs RNDDD.Abdominal Pain.Multiple ovarian cysts, last one in JUN.Multiple miscarriages.Irregular Periods. --14:07 12/27/20 Fanny Khalil R.N.ADDITIONAL SURGERIES:Appendectomy.Skin grafting. --13:48 12/27/20 Jammie Tubbs RN.Dpgpjtt40:46 12/27/20.PAST MEDICAL HX: Tetanus status: up-to-date. Immunizations: [...] skin integrity riskidentified. --13:54 12/27/20 Jammie Tubbs RN.Wwnjswvxbgeld24:46 12/27/20. To treatment room. Ambulatory by hospital staff. room 8. --13:55 12/27/20 Jammie Barraza Clinical Report - Nurses [facility] Emergency Department [address] [place] [address] Phone #: ext- [phone] 12/27/2020 13:34 Patient: SAHARA LORD Sex: F : 1995 Age: 25y YAMILA Tubbs.PHYSICAL [id number]:26 12/27/20. Ambulatory to room. Patient gowned.GENERAL / [...] Patient returned from sonogram by wheelchair with industrial manufacturing technician. --15:32 12/27/20 Baron Saucedo R.N.DISPOSITION / [...] Patient verbalized understanding. Written instructions provided in Telugu. The patient was discharged by the physician respiratory therapist assistant. She was discharged home and accompanied by medical claims representative. She left ambulatory and via private vehicle. Pooling Operator driving. --16:09 12/27/20 Baron Saucedo R.N. 4 Clinical Report - Nurses [facility] Emergency Department [address] [place] [address] Phone #: ext- [phone] 12/27/2020 13:34 Patient: SAHARA LORD Sex: F : 1995 Age: 25y 16:08 12/27/20. BP: 129/89. MAP: 102. HR: 89. RR: 16. O2 saturation: 97%. Temp: 97.9 F. Pain level now: 11/21. --16:09 6/15/21 Baron Saucedo R.N.Locked/Released at 12/27/2020 16:14 by Baron Saucedo R.N. Name Value Range Interpretation Code Description Data Nguyen rce(s) Supporting Document(s) ID Date Data Source [id number] 12/27/2020 01:36:00 PM EDT [facility] 1 Clinical Report - Physicians/Mid Levels [facility] Emergency Department [address] [place] [address] Phone #: ext- [phone] 12/27/2020 13:34 Patient: SAHARA LORD Sex: F [...] Appendectomy. Skin grafting. 2 Clinical Report - Physicians/[facility] Emergency Department [address] [place] [address] Phone #: ext- [phone] 12/27/2020 13:34 Patient: [...] DIFF 3 Clinical Report - Physicians/Mid Levels [facility] Emergency Department [address] [place] [address] Phone #: ext- [phone] 12/27/2020 13:34 Patient: [...] Male GFR Interprentation 20-49 yrs >60 mL/min Jwnlxa89-34 yrs >56 mL/min Normal 60-69 yrs >49 mL/min Normal 70-79yrs>42 mL/min Normal 80 and above >35 mL/min Normal Female GFRInterpretation 20-39 yrs >60 mL/min Normal 40-49 yrs >58 mL/minNormal 50-59 yrs >51 mL/min Normal 60-69 yrs >45 mL/min Bnbiey24-55 yrs >39 mL/min Normal 80 and above >32 mL/min Normal 4 Clinical Report - Physicians/Mid Levels [facility] Emergency Department [address] [place] [address] Phone #: ext- [phone] 12/27/2020 13:34 Patient: [...] Thrombosis, Pulmonary Embolus, Tissue heart valves, Acute GA Atrial Fibrillation, Valvular heart disease and recurrent Systemic Embolism. - International Normalized Ratio (INR): 2.5 - 3.5 for Mechanical Prosthetic valve. Lactic Acid: (KRISSY: 12/27/2020 14:27) ( [facility] [place] 12/27/2020 14:50) Final results Test Result Flag Units (Reference) LACTIC ACID 1.7 MMOL/L (0.2 - 2.2) Sed. Rate: (KRISSY: 12/27/2020 14:27) ( [facility] [place] 12/27/2020 15:15) Final results Test Result Flag Units (Reference) SED RATE 10 mm/hr (0 - 20) SED RATE REENTER 10 CRP: (KRISSY: 12/27/2020 14:27) ( [facility] 12/27/2020 14:53) Final results Test Result Flag Units (Reference) CRP-HS 2.87 MG/L (1.00 - 3.00) CDC/AHS HS-CRP CUT-OFF: RELATIVE RISK: <1.0 mg/L Low 1.0 - 3.0 mg/L Average >3.0 mg/L High Optimally, the average of HS-CRP results repeated two weeks apart should be used for risk assessment. US Lower Ext Venous Right: (KRISSY: 12/27/2020 14:18) ( [facility] 12/27/2020 15:27) In Progress US DOPPLER UNI [...] 2020). 5 Clinical Report - Physicians/Mid Levels [facility] Emergency Department [address] [place] [address] Phone #: ext- [phone] 12/27/2020 13:34 - [...] verbalized by patient. Follow-up with: [facility], , , [address] [place] [address], [phone] Follow up tomorrow. Call for the next available appointment. Reason for referral: evaluation and treatment. Summary of care provided to patient.(Electronically signed by JORGE Martinez 12/27/2020 23:38) Name Value Range Interpretation Code Description Data Nguyen rce(s) Supporting Document(s) ID Date Data Source [id number] 12/27/2020 03:14:00 PM EDT [facility] Name Value Range Interpretation Code Description Data Nguyen rce(s) Supporting Document(s) Erythrocyte sedimentation rate by Westergren method 10 mm/hr 0 - 20 [facility] SED RATE REENTER 10 [facility] ID Date Data Source [id number] 12/27/2020 02:55:00 PM EDT [facility] Name Value Range Interpretation Code Description Data Nguyen rce(s) Supporting Document(s) COMPREHENSIVE METABOLIC PANEL [facility] COMPREHENSIVE METABOLIC PANEL Sodium [Moles/volume] in Serum or Plasma 140 mEq/L 134 - 153 [facility] Potassium [Moles/volume] in Serum or Plasma 4.1 mEq/L 3.6 - 5.0 [facility] Chloride [Moles/volume] in Serum or Plasma 105 mEq/L 98 - 107 [facility] Carbon dioxide, total [Moles/volume] in Serum or Plasma 27 MEQ/L 22 - 30 [facility] Glucose [Mass/volume] in Serum or Plasma 114 MG/DL 70 - 99 H [facility] BUN 7 MG/DL 7 - 21 [facility] Creatinine [Mass/volume] in Serum or Plasma 0.7 MG/DL 0.7 - 1.5 [facility] BUN/CREAT 10 8 - 27 [facility] al Protein [Mass/volume] in Serum or Plasma 6.9 G/DL 6.3 - 8.2 [facility] Albumin [Mass/volume] in Serum or Plasma 4.6 G/DL 3.9 - 5.0 [facility] Globulin [Mass/volume] in Serum by calculation 2.3 GM/DL 2.4 - 3.2 L [facility] A/G RATIO 2.0 0.8 - 2.0 [facility] Calcium [Mass/volume] in Serum or Plasma 9.2 MG/DL 8.4 - 10.2 [facility] Bilirubin.total [Mass/volume] in Serum or Plasma <0.7 MG/DL 0.2 - 1.3 [facility] Alkaline phosphatase [Enzymatic activity/volume] in Serum or Plasma 101 U/L 38 - 126 [facility] Aspartate aminotransferase [Enzymatic activity/volume] in Serum or Plasma 32 U/L 5 - 40 [facility] Alanine aminotransferase [Enzymatic activity/volume] in Seru m or Plasma 40 U/L 7 - 56 [facility] Anion gap 3 in Serum or Plasma 8.0 mmol/L 8.0 - 16.0 [facility] AGE 25 yrs [facility] NON-AA GFR >60 mL/min [facility] AFR AMER GFR >60 mL/min [facility] Male GFR In terprentation 20-49 [...] >32 mL/min Normal ID Date Data Source [id number] 12/27/2020 02:53:00 PM EDT [facility] Name Value Range Interpretation Code Description Data Gnuyen rce(s) Supporting Document(s) C reactive protein [Mass/volume] in Serum or Plasma by High sensitivity method 2.87 MG/L 1.00 - 3.00 [facility] CDC/[facility] HS-CRP CUT-OFF: RELATIVE RISK: <1.0 mg/L Low 1.0 - 3.0 mg/L Average >3.0 mg/L High Optimally, the average of HS-CRP results repeated two weeks apart should be used for risk assessment. ID Date Data Source [id number] 12/27/2020 02:50:00 PM EDT [facility] Name Value Range Interpretation Code Description Data Nguyen rce(s) Supporting Document(s) Lactate [Moles/volume] in Serum or Plasma 1.7 MMOL/L 0.2 - 2.2 [facility] ID Date Data Source [id number] 12/27/2020 02:47:00 PM EDT [facility] Name Value Range Interpretation Code Description Data Nguyen rce(s) Supporting Document(s) Prothrombin time (PT) 13.5 SECONDS 11.0 - 15.5 [facility] INR in Platelet poor plasma by Coagulation assay 1.02 0.93 - 1. 23 [facility] aPTT in Blood by Coagulation assay 28.5 SECONDS 24.8 - 36.7 [facility] \\BLDo\\INR INTERPRETATION\\BLDx\\ Therapeutic range for Coumadin and related oral anticoagulants. - International Normalized Ratio (INR): 2.0 - 3.0 for Venous Thrombosis, Pulmonary Embolus, Tissue heart valves, Acute GA Atrial Fibrillation, Valvular heart disease and recurrent Systemic Embolism. - International Normalized Ratio (INR): 2.5 - 3.5 for Mechanical Prosthetic valve. ID Date Data Source [id number] 12/27/2020 02:38:00 PM EDT [facility] Name Value Range Interpretation Code Description Data Nguyen rce(s) Supporting Document(s) CBC W/AUTOMATED DIFF [facility] COMPLETE BLOOD COUNT Leukocytes [#/volume] in Blood by Automated count 8.0 10^3/uL 4.2 - 1 1.0 [facility] Erythrocytes [#/volume] in Blood by Automated count 4.57 10^6/uL 4. 20 - 5.40 [facility] Hemoglobin [Mass/volume] in Blood 11.3 g/dL 12.0 - 16.0 L [facility] Hematocrit [Volume Fraction] of Blood by Automated count 36.8 % 3 7.0 - 47.0 L [facility] Erythrocyte mean corpuscular volume [Entitic volume] by Auto mated count 80.5 fL 81.0 - 101 L [facility] Erythrocyte mean corpuscular hemoglobin [Entitic mass] by Automated count 24.7 pg 27.0 - 34.0 L [facility] Erythrocyte mean corpuscular hemoglobin concentration [Mass/volume] by Automated count 30.7 g/dL 31.0 - 36.0 L [facility] Erythrocyte distribution width [Ratio] by Automated count 16.2 % 11.5 - 14.5 H [facility] Platelets [#/volume] in Blood by Automated count 327 10^3/uL 150 - 45 0 [facility] Platelet mean volume [Entitic volume] in Blood by Automated count 9.5 fL 7.4 - 10.4 [facility] Neutrophils/100 leukocytes in Blood by Automated count 63.2 % 37. 0 - 80.0 [facility] Lymphocytes/100 leukocytes in Blood by Manual count 26.6 % 25.0 - 40.0 [facility] Monocytes/100 leukocytes in Blood by Automated count 6.5 % 3.0 - 8.0 [facility] Eosinophils/100 leukocytes in Blood by Automated count 2.3 % 0.0 - 7.0 [facility] Basophils/100 leukocytes in Blood by Automated count 0.5 % 0.0 - 2.5 [facility] %IG 0.9 % 0.0 - 0.0 H [facility] %NRBC 0.0 % 0.0 [facility] [#/volume] in Blood by Automated count 5.04 10^3/uL 2.00 - 6.90 [facility] Lymphocytes [#/volume] in Blood by Automated count 2.12 10^3/uL 0.60 - 3.40 [facility] Monocytes [#/volume] in Blood by Automated count 0.52 10^3/uL 0.00 - 0.90 [facility] Eosinophils [#/volume] in Blood by Automated count 0.18 10^3/uL 0.00 - 0.70 [facility] Basophils [#/volume] in Blood by Automated count 0.04 10^3/uL 0.00 - 0.20 [facility] #IG 0.07 10^3/uL 0.00 - 0.10 [facility] #NRBC 0.00 10^3/uL 0.00 - 0.00 [facility] MANUAL DIFF NOT INDICATED [facility] RBC MORPH NOT INDICATED [facility] ID Date Data Source [id number] 06/06/2020 10:30:00 AM MARQUES [facility]) Name Value Range Interpretation Code Description Data Nguyen rce(s) Supporting Document(s) Hemoglobin A1c/Hemoglobin.total in Blood 5.5 % Hemoglobin a1C BATTIEST ([facility]) estimated average glucose 111 mg/dL 60-110 Above high norm al Estimated Average Glucose [facility]) ID Date Data Source [id number] 06/06/2020 10:30:00 AM EST [facility]) Name Value Range Interpretation Code Description Data Nguyen rce(s) Supporting Document(s) total 25(oh) vitamin D 15.9 NG/mL 30.0-100.0 Below low normal T otal 25(Oh) Vitamin D BATTIEST ([facility]) ID Date Data Source [id number] 06/06/2020 10:30:00 AM EST KEIRA ([facility]) Name Value Range Interpretation Code Description Data Nguyen rce(s) Supporting Document(s) thyroid stimulating hormone 8.920 uIU/mL 0.358-3.740 Above high no rmal Thyroid Stimulating Hormone KEIRA ([facility]) free T4 0.93 NG/dL 0.76-1.46 Free T4 BATTIEST ([facility]) ID Date Data Source [id number] 06/06/2020 10:30:00 AM EST BATTIEST ([facility]) Name Value Range Interpretation Code Description Data Nguyen rce(s) Supporting Document(s) triglycerides level 236 mg/dL <150 Above high normal Triglycer ides Level KEIRA ([facility]) cholesterol level 159 mg/dL <200 Cholesterol Level KEIRA ([facility]) Cholesterol in LDL [Mass/volume] in Serum or Plasma 85 mg/dL <1 00 LDL Cholesterol KEIRA ([facility]) HDL cholesterol 27 mg/dL >40 Below low normal HDL Cholestero l KEIRA ([facility]) cholesterol risk ratio <5 Above high normal Choles terol Risk Ratio KEIRA ([facility]) non-HDL-C 132 mg/dL Non-hdl-c KEIRA ([facility]) ID Date Data Source [id number] 06/06/2020 10:30:00 AM EST KEIRA ([facility]) Name Value Range Interpretation Code Description Data Nguyen rce(s) Supporting Document(s) glucose, fasting 102 mg/dL 70-100 Above high normal Glucose, Fas ting KEIRA ([facility]) blood urea nitrogen 8 mg/dL 7-18 Blood Urea Nitro gen KEIRA ([facility]) sodium level 140 mEq/L 136-145 Sodium Level KEIRA ([facility]) potassium serum 4.0 mEq/L 3.5-5.1 Potassium Serum ATHE NA ([facility]) creatinine for GFR 0.71 mg/dL 0.55-1.30 Creatinine for GF R KEIRA ([facility]) glomerular filtration rate > 60.0 >60 Glomerula r Filtration Rate KEIRA ([facility]) chloride level 109 mEq/L 98-107 Above high normal Chloride Level KEIRA ([facility]) carbon dioxide level 27 mEq/L 21-32 Carbon Dioxide Level KEIRA ([facility]) anion gap 4 mEq/L 8-16 Below low normal Anion Gap KEIRA ( [facility]) AST/SGOT 23 U/L 7-37 AST/SGOT KEIRA ([facility]) calcium level 9.4 mg/dL 8.5-10.1 Calcium Level KEIRA ( [facility]) ALT/SGPT 50 U/L 12-78 ALT/SGPT KEIRA ([facility]) bilirubin,total 0.4 mg/dL 0.2-1.0 Bilirubin,total ATHE NA ([facility]) alkaline phosphatase 93 U/L 45-117 Alkaline Phosph atase KEIRA ([facility]) albumin 3.9 gm/dL 3.2-5.2 Albumin KEIRA ([facility]) albumin/globulin ratio 1.2-2.2 Below low normal Albumin /globulin Ratio KEIRA ([facility]) total protein 7.3 gm/dL 6.4-8.2 Total Protein KEIRA ( [facility]) ID Date Data Source [id number] 06/06/2020 10:30:00 AM EST KEIRA ([facility]) Name Value Range Interpretation Code Description Data Nguyen rce(s) Supporting Document(s) red blood count 4.80 10 4.00-5.40 Red Blood Count ATHE ([facility]) white blood count 8.4 10 4.0-10.0 White Blood Count KEIRA ([facility]) mean corpuscular volume 82.3 fL 80.0-96.0 Mean Corpusc ular Volume KEIRA ([facility]) hematocrit 39.5 % 36.0-47.0 Hematocrit KEIRA ([facility]) hemoglobin 12.8 g/dL 12.0-15.5 Hemoglobin KEIRA ([facility]) platelet count, automated 312 10 150-450 Platelet C ount, Automated KEIRA ([facility]) red cell distribution width 15.2 % 11.5-14.5 Above high no rmal Red Cell Distribution Width KEIRA ([facility]) mean corpuscular hemoglobin 26.7 pg 27.0-33.0 Below low nor mal Mean Corpuscular Hemoglobin KEIRA ([facility]) mean corpuscular HGB conc 32.4 g/dL 32.0-36.5 Mean Corpu scular HGB Conc KEIRA ([facility]) mono % 7.5 % 0.0-5.0 Above high normal [place] % KEIRA ([facility]) neutrophils % 65.1 % 36.0-66.0 Neutrophils % KEIRA ( [facility]) lymph % 23.4 % 24.0-44.0 Below low normal Lymph % KEIRA ( [facility]) eos % 2.1 % 0.0-3.0 Eos % KEIRA ([facility]) baso % 0.6 % 0.0-1.0 Baso % KEIRA ([facility]) immature granulocyte % 1.3 % 0-3.0 Immature Gran ulocyte % KEIRA ([facility]) neutrophils # 5.5 10 1.5-8.5 Neutrophils # KEIRA ( [facility]) nucleated red blood cell % 0.0 % 0-0 Nucleated Red Blood Cell % KEIRA ([facility]) lymph # 2.0 10 1.5-5.0 Lymph # KEIRA ([facility]) mono # 0.6 10 0.0-0.8 [place] # KEIRA ([facility]) eos # 0.2 10 0.0-0.5 Eos # KEIRA ([facility]) baso # 0.1 10 0.0-0.2 Baso # KEIRA ([facility]) ID Date Data Source [id number] 06/06/2020 10:30:00 AM EST KEIRA ([facility]) Name Value Range Interpretation Code Description Data Nguyen rce(s) Supporting Document(s) Hemoglobin A1c/Hemoglobin.total in Blood 5.5 % Hemoglobin a1C KEIRA ([facility]) estimated average glucose 111 mg/dL 60-110 Above high norm al Estimated Average Glucose KEIRA ([facility]) ID Date Data Source [id number] 06/06/2020 10:30:00 AM EST KEIRA ([facility]) Name Value Range Interpretation Code Description Data Nguyen rce(s) Supporting Document(s) total 25(oh) vitamin D 15.9 NG/mL 30.0-100.0 Below low normal T otal 25(Oh) Vitamin D KEIRA ([facility]) ID Date Data Source [id number] 06/06/2020 10:30:00 AM EST KEIRA ([facility]) Name Value Range Interpretation Code Description Data Nguyen rce(s) Supporting Document(s) thyroid stimulating hormone 8.920 uIU/mL 0.358-3.740 Above high no rmal Thyroid Stimulating Hormone KEIRA ([facility]) free T4 0.93 NG/dL 0.76-1.46 Free T4 KEIRA ([facility]) ID Date Data Source [id number] 06/06/2020 10:30:00 AM EST KEIRA ([facility]) Name Value Range Interpretation Code Description Data Nguyen rce(s) Supporting Document(s) cholesterol level 159 mg/dL <200 Cholesterol Level KEIRA ([facility]) triglycerides level 236 mg/dL <150 Above high normal Triglycer ides Level KEIRA ([facility]) HDL cholesterol 27 mg/dL >40 Below low normal HDL Cholestero l KEIRA ([facility]) Cholesterol in LDL [Mass/volume] in Serum or Plasma 85 mg/dL <1 00 LDL Cholesterol KEIRA ([facility]) cholesterol risk ratio <5 Above high normal Choles terol Risk Ratio KEIRA ([facility]) non-HDL-C 132 mg/dL Non-hdl-c KEIRA ([facility]) ID Date Data Source [id number] 06/06/2020 10:30:00 AM EST KEIRA ([facility]) Name Value Range Interpretation Code Description Data Nguyen rce(s) Supporting Document(s) glucose, fasting 102 mg/dL 70-100 Above high normal Glucose, Fas ting KEIRA ([facility]) blood urea nitrogen 8 mg/dL 7-18 Blood Urea Nitro gen KEIRA ([facility]) sodium level 140 mEq/L 136-145 Sodium Level KEIRA ([facility]) glomerular filtration rate > 60.0 >60 Glomerula r Filtration Rate KEIRA ([facility]) creatinine for GFR 0.71 mg/dL 0.55-1.30 Creatinine for GF R KEIRA ([facility]) potassium serum 4.0 mEq/L 3.5-5.1 Potassium Serum ATHE NA ([facility]) anion gap 4 mEq/L 8-16 Below low normal Anion Gap KEIRA ( [facility]) carbon dioxide level 27 mEq/L 21-32 Carbon Dioxide Level KEIRA ([facility]) calcium level 9.4 mg/dL 8.5-10.1 Calcium Level KEIRA ( [facility]) chloride level 109 mEq/L 98-107 Above high normal Chloride Level KEIRA ([facility]) ALT/SGPT 50 U/L 12-78 ALT/SGPT KEIRA ([facility]) alkaline phosphatase 93 U/L 45-117 Alkaline Phosph atase KEIRA ([facility]) bilirubin,total 0.4 mg/dL 0.2-1.0 Bilirubin,total ATHE NA ([facility]) AST/SGOT 23 U/L 7-37 AST/SGOT KEIRA ([facility]) total protein 7.3 gm/dL 6.4-8.2 Total Protein KEIRA ( [facility]) albumin 3.9 gm/dL 3.2-5.2 Albumin KEIRA ([facility]) albumin/globulin ratio 1.2-2.2 Below low normal Albumin /globulin Ratio KEIRA ([facility]) ID Date Data Source [id number] 06/06/2020 10:30:00 AM EST KEIRA ([facility]) Name Value Range Interpretation Code Description Data Nguyen rce(s) Supporting Document(s) white blood count 8.4 10 4.0-10.0 White Blood Count KEIRA ([facility]) red blood count 4.80 10 4.00-5.40 Red Blood Count ATHE ([facility]) hemoglobin 12.8 g/dL 12.0-15.5 Hemoglobin KEIRA ([facility]) hematocrit 39.5 % 36.0-47.0 Hematocrit KEIRA ([facility]) mean corpuscular volume 82.3 fL 80.0-96.0 Mean Corpusc ular Volume KEIRA ([facility]) mean corpuscular hemoglobin 26.7 pg 27.0-33.0 Below low nor mal Mean Corpuscular Hemoglobin KEIRA ([facility]) mean corpuscular HGB conc 32.4 g/dL 32.0-36.5 Mean Corpu scular HGB Conc KEIRA ([facility]) platelet count, automated 312 10 150-450 Platelet C ount, Automated KEIRA ([facility]) red cell distribution width 15.2 % 11.5-14.5 Above high no rmal Red Cell Distribution Width KEIRA ([facility]) mono % 7.5 % 0.0-5.0 Above high normal [place] % KEIRA ([facility]) lymph % 23.4 % 24.0-44.0 Below low normal Lymph % KEIRA ( [facility]) neutrophils % 65.1 % 36.0-66.0 Neutrophils % KEIRA ( [facility]) eos % 2.1 % 0.0-3.0 Eos % KEIRA ([facility]) nucleated red blood cell % 0.0 % 0-0 Nucleated Red Blood Cell % KEIRA ([facility]) baso % 0.6 % 0.0-1.0 Baso % KEIRA ([facility]) immature granulocyte % 1.3 % 0-3.0 Immature Gran ulocyte % BATTIEST ([facility]) neutrophils # 5.5 10 1.5-8.5 Neutrophils # BATTIEST ( [facility]) lymph # 2.0 10 1.5-5.0 Lymph # BATTIEST ([facility]) mono # 0.6 10 0.0-0.8 [place] # KEIRA ([facility]) eos # 0.2 10 0.0-0.5 Eos # KEIRA ([facility]) baso # 0.1 10 0.0-0.2 Baso # BATTIEST ([facility]) Procedure Social History Code Duration Value Status Description Data Source(s ) Smoking 12/20/2020 12:00:00 AM EDT Former Smoker completed Former Smoker [facility] ([facility]) Smoking 11/21/2020 12:00:00 AM EDT Current Smoker completed Curre nt Smoker eC ([facility]) Smoking 10/27/2020 12:00:00 AM EDT Current Smoker completed Curre nt Smoker [facility] ([facility]) Smoking 06/21/2020 12:00:00 AM EST Patient is a former smoker completed Patient is a former smoker NICA ([facility] ) Vital Signs ID Date Data Source UNK Name Value Range Interpretation Code Description Data Source(s) Diastolic blood pressure 92 mm[Hg] 92 mm[Hg] KEIRA ([facility]) Body height 66 [in_i] 66 [in_i] KEIRA ([facility]) Body mass index (BMI) [Ratio] 52.4 kg/m2 52.4 k g/m2 KEIRA ([facility]) Systolic blood pressure 152 mm[Hg] 152 mm[Hg] A THENA ([facility]) Body weight 5190.4 [oz_av] 5190.4 [oz_av] ATHEN A ([facility]) Body weight 316 [lb_av] 316 [lb_av] [facility] ([facility]) Body weight 143.34 kg 143.34 kg eCW1 ([facility]) Body height 66 [in_i] 66 [in_i] eCW1 ([facility]) Body mass index (BMI) [Ratio] 51 kg/m2 51 kg/ m2 eCW1 ([facility]) Systolic blood pressure 138 mm[Hg] 138 mm[Hg] e CW1 ([facility]) Diastolic blood pressure 92 mm[Hg] 92 mm[Hg] eCW1 ([facility]) Systolic blood pressure 138 mm[Hg] 138 mm[Hg] e CW1 ([facility]) Body weight 315 [lb_av] 315 [lb_av] eCW1 ([facility]) Body weight 142.88 kg 142.88 kg eCW1 ([facility]) Body height 66 [in_i] 66 [in_i] [facility] ([facility] [facility] Body mass index (BMI) [Ratio] 50.84 kg/m2 50.84 kg/m2 W1 ([facility]) Diastolic blood pressure 90 mm[Hg] 90 mm[Hg] eCW1 ([facility]) Body weight 318 [lb_av] 318 [lb_av] eCW1 ([facility]) Body weight 144.24 kg 144.24 kg eCW1 ([facility]) Body height 66 [in_i] 66 [in_i] eCW1 ([facility]) Body mass index (BMI) [Ratio] 51.32 kg/m2 51.32 kg/m2 eCW1 ([facility]) Systolic blood pressure 136 mm[Hg] 136 mm[Hg] e CW1 ([facility]) Diastolic blood pressure 90 mm[Hg] 90 mm[Hg] eCW1 ([facility]) Body height 66 [in_i] 66 [in_i] KEIRA ([facility]) Body height 66 [in_i] 66 [in_i] KEIRA ([facility]) Patient Treatment Plan of Care Planned Activity Planned Date Details Description Data Source (s) Polyethylene Glycol 400 4 MG/ML / Propyl lizet glycol 3 MG/ML Ophthalmic Solution [Systane] KEIRA ([facility]) Prednisone 20 MG Oral Tablet KEIRA ([facility]) meloxicam 15 MG Oral Tablet KEIRA ([facility]) Fluoxetine 10 MG Oral Capsule BATTIEST ([facility])
[2021-06-07] MEDS ORDERED: KETOROLAC 30 MG/ML 1ML VIAL IV ONE (04:20)
[2021-06-07] MEDS ORDERED: METHOCARBAMOL 1,000 MG/10 ML VIAL (J2800) IV ONE (04:20)
[2021-06-07] MEDS ORDERED: NAPR-837 PO (05:45)
[2021-06-07] MEDS ORDERED: METH-1165 PO (05:45)
[2021-06-07 06:02] VITALS: BP 143/71
== END 2021-06-07 06:04 | disposition home or self-care (01) ==
LOC: M ED 23:13
DX: M54.50 Low back pain, unspecified (principal)
CPT/HCPCS: 96374; 96375; 99284; J1885; J2800

== ENCOUNTER 2021-09-30 22:54 | Emergency (ER) | payer OTHER ==
[~2021-09-30] VITALS: Ht 167.6 cm; Wt 138.2 kg
[~2021-09-30 22:54] MED LIST changes: +METH-1165 PO; +NAPR-837 PO; +OMEP-173 PO; -OMEP-218 PO
[2021-09-30] MEDS ORDERED: IBUP-1022 PO (23:03)
[2021-10-01] MEDS ORDERED: KETOROLAC 30 MG/ML 1ML VIAL IV ONE (01:00)
[2021-10-01 02:25] LABS: BASO # 0.1 10^3/uL (0.0-0.2); BASO % 0.5 % (0.0-1.0); EOS # 0.2 10^3/uL (0.0-0.5); EOS % 2.2 % (0.0-3.0); HEMATOCRIT 41.9 % (36.0-47.0); HEMOGLOBIN 13.7 g/dl (12.0-15.5); LYMPH # 2.4 10^3/uL (1.5-5.0); LYMPH % 25.8 % (24.0-44.0); MEAN CORPUSCULAR HEMOGLOBIN 27.3 pg (27.0-33.0); MEAN CORPUSCULAR HGB CONC 32.7 g/dl (32.0-36.5); MEAN CORPUSCULAR VOLUME 83.5 fl (80.0-96.0); MONO # 0.8 10^3/uL (0.0-0.8); MONO % 8.2 % (2.0-8.0); NEUTROPHILS # 5.8 10^3/uL (1.5-8.5); NEUTROPHILS % 62.5 % (36.0-66.0); PLATELET COUNT, AUTOMATED 300 10^3/uL (150-450); RED BLOOD COUNT 5.02 10^6/uL (4.00-5.40); WHITE BLOOD COUNT 9.3 10^3/uL (4.0-10.0)
[2021-10-01 02:32] LABS: APPEARANCE, URINE HAZY (CLEAR); BACTERIA, URINE AUTO 1+ (NEGATIVE); BILIRUBIN, URINE AUTO NEGATIVE (NEGATIVE); BLOOD, URINE BLOOD NEGATIVE (NEGATIVE); COLOR, URINE YELLOW (YELLOW); GLUCOSE, URINE (UA) AUTO NEGATIVE (NEGATIVE); KETONE, URINE AUTO TRACE mg/dL (NEGATIVE); LEUKOCYTE ESTERASE, URINE AUTO 1+ (NEGATIVE); MUCUS, URINE SMALL (NEGATIVE); NITRITE, URINE AUTO NEGATIVE (NEGATIVE); PROTEIN, URINE AUTO NEGATIVE (NEGATIVE); RBC, URINE AUTO 5 /HPF (0-3); SPECIFIC GRAVITY URINE AUTO 1.024 (1.002-1.035); SQUAMOUS EPITHELIAL CELL UR AU 10 /HPF (0-6); UROBILINOGEN, URINE AUTO 0.2 mg/dL (0.0-2.0); WBC, URINE AUTO 8 /HPF (0-3)
[2021-10-01 02:35] LABS: INR 0.99; PROTHROMBIN TIME 13.5 SECONDS (12.7-14.5)
[2021-10-01 02:36] LABS: PARTIAL THROMBOPLASTIN TIME 29.4 SECONDS (25.9-37.0)
[2021-10-01 02:51] LABS: ERYTHROCYTE SEDIMENTATION RATE 11 mm/hr (0-20)
[2021-10-01 03:15] LABS: ALBUMIN 4.4 GM/DL (3.2-5.2); BILIRUBIN,DIRECT 0.2 MG/DL (0.0-0.2); BILIRUBIN,TOTAL 0.7 MG/DL (0.2-1.0); C REACTIVE PROTEIN QUANTITATIV 0.59 MG/DL (0.00-0.30); FREE T4 0.93 NG/DL (0.76-1.46); MAGNESIUM LEVEL 2.3 MG/DL (1.8-2.4); THYROID STIMULATING HORMONE 3.94 uIU/ML (0.358-3.740); TOTAL PROTEIN 7.8 GM/DL (6.4-8.2)
[2021-10-01 03:37] LABS: HEMOGLOBIN A1c 5.5 %
[2021-10-01] MEDS ORDERED: LASI20TA3 PO (04:19)
[2021-10-01] MEDS ORDERED: TRAM50TA2 PO (04:23)
[2021-10-01 04:40] VITALS: BP 138/85
== END 2021-10-01 04:41 | disposition home or self-care (01) ==
LOC: M ED 22:54
DX: E03.9 Hypothyroidism, unspecified (principal); G90.59 Complex regional pain syndrome I of other specified site; M79.89 Other specified soft tissue disorders; E66.9 Obesity, unspecified; I10 Essential (primary) hypertension; R51.9 Headache, unspecified; R56.9 Unspecified convulsions; J45.909 Unspecified asthma, uncomplicated; M51.9 Unspecified thoracic, thoracolumbar and lumbosacral intervertebral disc disorder; F31.89 Other bipolar disorder; F41.8 Other specified anxiety disorders; N93.8 Other specified abnormal uterine and vaginal bleeding; F12.10 Cannabis abuse, uncomplicated; Z87.891 Personal history of nicotine dependence
CPT/HCPCS: 80047; 80076; 81001; 82550; 83036; 83605; 83735; 83880; 84439; 84443; 84484; 84702; 85025; 85610; 85652; 85730; 86140; 93005; 93970; 96374; 99284; J1885

== ENCOUNTER 2021-10-15 16:41 | Emergency (ER) | payer OTHER ==
[~2021-10-15] VITALS: Ht 167.6 cm; Wt 134.1 kg
[~2021-10-15 16:41] MED LIST changes: +LASI20TA3 PO
[2021-10-15 16:51] VITALS: BP 134/87
[2021-10-15 18:35] LABS: BASO % 0.5 % (0.0-1.0); EOS # 0.2 10^3/uL (0.0-0.5); EOS % 3.1 % (0.0-3.0); HEMATOCRIT 40.2 % (36.0-47.0); HEMOGLOBIN 13.2 g/dl (12.0-15.5); LYMPH # 1.5 10^3/uL (1.5-5.0); LYMPH % 19.8 % (24.0-44.0); MEAN CORPUSCULAR HEMOGLOBIN 27.6 pg (27.0-33.0); MEAN CORPUSCULAR HGB CONC 32.8 g/dl (32.0-36.5); MEAN CORPUSCULAR VOLUME 84.1 fl (80.0-96.0); MONO # 0.7 10^3/uL (0.0-0.8); MONO % 8.5 % (2.0-8.0); NEUTROPHILS # 5.2 10^3/uL (1.5-8.5); NEUTROPHILS % 67.1 % (36.0-66.0); PLATELET COUNT, AUTOMATED 287 10^3/uL (150-450); RED BLOOD COUNT 4.78 10^6/uL (4.00-5.40); WHITE BLOOD COUNT 7.7 10^3/uL (4.0-10.0)
[2021-10-15 19:05] LABS: BLOOD UREA NITROGEN 10 MG/DL (7-18); CALCIUM LEVEL 8.7 MG/DL (8.5-10.1); CARBON DIOXIDE LEVEL 29 MEQ/L (21-32); CHLORIDE LEVEL 107 MEQ/L (98-107); CREATININE FOR GFR 0.73 MG/DL (0.55-1.30); GLOMERULAR FILTRATION RATE > 60.0 (>60); GLUCOSE, FASTING 87 MG/DL (70-100); POTASSIUM SERUM 3.9 MEQ/L (3.5-5.1); SODIUM LEVEL 139 MEQ/L (136-145)
[2021-10-15] MEDS ORDERED: BENZ200C70 PO (21:53)
== END 2021-10-15 22:00 | disposition home or self-care (01) ==
LOC: M ED 16:41
DX: M79.604 Pain in right leg (principal); M79.605 Pain in left leg; J02.9 Acute pharyngitis, unspecified; H53.8 Other visual disturbances; Z79.899 Other long term (current) drug therapy
CPT/HCPCS: 70450; 80048; 84702; 85025; 87880; 93970; 99284; U0003

== ENCOUNTER → 2022-04-17 | Outpatient (REF) | payer OTHER ==
[~2022-04-17] MED LIST changes: -ZONI100C17 PO; +ZONI100C67 PO
== END ==
LOC: M SFHCWAGY 15:42
PROVIDERS: ATTEND Advanced Practice Midwife
DX: Z12.4 Encounter for screening for malignant neoplasm of cervix (principal)

== ENCOUNTER → 2022-09-17 | Outpatient (REF) | payer OTHER ==
[~2022-09-17] MED LIST changes: -FLUO10TA2; +FLUO1TAB
[2022-09-17 17:19] LABS: BASO # 0.1 10^3/uL (0.0-0.2); BASO % 0.9 % (0.0-1.0); EOS # 0.2 10^3/uL (0.0-0.5); EOS % 2.5 % (0.0-3.0); HEMATOCRIT 43.6 % (36.0-47.0); HEMOGLOBIN 14.1 g/dl (12.0-15.5); LYMPH # 2.4 10^3/uL (1.5-5.0); LYMPH % 24.9 % (24.0-44.0); MEAN CORPUSCULAR HEMOGLOBIN 28.4 pg (27.0-33.0); MEAN CORPUSCULAR HGB CONC 32.3 g/dl (32.0-36.5); MEAN CORPUSCULAR VOLUME 87.9 fl (80.0-96.0); MONO # 0.7 10^3/uL (0.0-0.8); MONO % 7.5 % (2.0-8.0); NEUTROPHILS # 5.9 10^3/uL (1.5-8.5); NEUTROPHILS % 61.9 % (36.0-66.0); PLATELET COUNT, AUTOMATED 299 10^3/uL (150-450); RED BLOOD COUNT 4.96 10^6/uL (4.00-5.40); WHITE BLOOD COUNT 9.6 10^3/uL (4.0-10.0)
[2022-09-17 17:48] LABS: ALBUMIN 4.1 G/DL (3.2-5.2); ALKALINE PHOSPHATASE 87 U/L (46-116); ALT/SGPT 35 U/L (7.0-40); AST/SGOT 23 U/L (<34); BILIRUBIN,TOTAL 0.6 MG/DL (0.3-1.2); BLOOD UREA NITROGEN 13 MG/DL (9-23); CALCIUM LEVEL 9.1 MG/DL (8.5-10.1); CARBON DIOXIDE LEVEL 28 MMOL/L (20-31); CHLORIDE LEVEL 105 MMOL/L (98-107); CREATININE FOR GFR 0.72 MG/DL (0.55-1.30); GLOMERULAR FILTRATION RATE > 60.0 (>60); GLUCOSE, FASTING 96 MG/DL (60-100); POTASSIUM SERUM 4.2 MMOL/L (3.5-5.1); SODIUM LEVEL 139 MMOL/L (136-145); THYROID STIMULATING HORMONE 7.746 uIU/ML (0.55-4.78); TOTAL PROTEIN 7.2 G/DL (5.7-8.2)
== END ==
LOC: M LAB REF 16:27
PROVIDERS: ATTEND Family Medicine Addiction Medicine
DX: E03.9 Hypothyroidism, unspecified (principal); L28.2 Other prurigo

== ENCOUNTER → 2022-12-17 | Outpatient (REF) | payer OTHER ==
[2022-12-19 07:10] LABS: MUMPS VIRUS IgG ANTIBODY 13.3 AU/mL (Immune >10.9)
== END ==
LOC: M LAB REF 16:20
PROVIDERS: ATTEND Family Medicine Addiction Medicine
DX: Z23 Encounter for immunization (principal)

== ENCOUNTER 2023-03-15 17:55 | Emergency (ER) | payer OTHER ==
[~2023-03-15] VITALS: Ht 167.6 cm; Wt 139.1 kg
[2023-03-16] MEDS ORDERED: PRED20TA PO ×2 (07:18→07:25)
[2023-03-16] MEDS ORDERED: LIDO5DIS41 TD ×2 (07:18→07:25)
[2023-03-16] MEDS ORDERED: LIDOCAINE 5% (LIDODERM) PATCH TD ONE (07:20)
[2023-03-16] MEDS ORDERED: predniSONE 20 MG TAB PO ONE (07:20)
[2023-03-16] MEDS ORDERED: KETOROLAC 60MG 2ML VIAL IM ONE (07:20)
[2023-03-16 07:38] VITALS: BP 133/83; TEMP 98.2; O2SAT 98
== END 2023-03-16 08:11 | disposition home or self-care (01) ==
LOC: M ED 17:55
DX: M54.50 Low back pain, unspecified (principal); F31.9 Bipolar disorder, unspecified
CPT/HCPCS: 72110; 96372; 99283; J1885; J7512